=== PATIENT | female | born 1930 | race Caucasian/White ===

== ENCOUNTER 2017-07-06 11:15 | Inpatient (IN) | payer MEDICARE ==
[2017-07-06] MEDS ORDERED: Metoprolol Tartrate 5 MG/5 ML SDV IVPUSH ONE ×3 (11:30→12:36)
--- NOTE | 2017-07-06 11:31 | EDM.PDOC ---
ED HPI GENERAL MEDICAL PROBLEM - General Chief Complaint: Neuro Symptoms/Deficits Stated Complaint: SOB CONFUSED Time Seen by Provider: 07/06/17 11:20 Source of Information: Reports: Patient, EMS, Family, Old Records History Limitations: Reports: No Limitations - History of Present Illness INITIAL COMMENTS - FREE TEXT/NARRATIVE: 86 yo female who lives alone is brought in today via EMS for confusion. Family says she had a RAVI yesterday and was mentating more slowly than usual but was not confused. Today is quite confused. She can remember some names and places, but is disoriented to situation, location, date, etc. EMS noted tachycardia as her only abnormal vital sign(130's). No food or drink yet today. 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 (see below) (none) - Related Data Allergies Allergy/AdvReac Type Severity Reaction Status Date / Time amoxicillin [Amoxicillin] Allergy Nausea and Verified 08/31/16 18:22 Vomiting Home Meds: Home Meds Levothyroxine 75 mcg PO DAILY 12/29/13 [History] Oxybutynin [Oxybutynin ER] 10 mg PO DAILY 12/29/13 [History] Simvastatin 20 mg PO BEDTIME 12/29/13 [History] cycloSPORINE [Restasis] 1 drop EYEBOTH BID 12/29/13 [History] Calcium Carbonate [Calcium] 2 tab PO DAILY 10/20/14 [History] Carboxymethylcellulos/Glycerin [Refresh Optive] 1 drop EYEBOTH TID 10/20/14 [ History] Cholecalciferol (Vitamin D3) [Vitamin D3] 1,000 unit PO DAILY 10/20/14 [History] Clopidogrel [Plavix] 75 mg PO DAILY 10/20/14 [History] Fluticasone/Salmeterol [Advair 250-50] 1 puff INH BID PRN 10/20/14 [History] Lutein 20 mg PO DAILY 10/20/14 [History] Metoprolol Tartrate [Lopressor] 1 tab PO BID 10/20/14 [History] traMADol HCl [Ultram] 50 mg PO BEDTIME 11/25/14 [History] Gabapentin [Neurontin] 900 mg PO BID 05/15/15 [History] Acetaminophen 650 mg PO Q4HR PRN 08/06/16 [History] Furosemide 20 mg PO MOWEFR 08/06/16 [History] Losartan Potassium [Cozaar] 25 mg PO DAILY 08/06/16 [History] Mirtazapine 7.5 mg PO BEDTIME 08/06/16 [History] Diclofenac Sodium 4 gm TOP TID 08/31/16 [History] Past Medical History HEENT History: Reports: Cataract Cardiovascular History: Reports: High Cholesterol, Hypertension, Syncope Respiratory History: Reports: Asthma Other Respiratory History: L sided endarterectomy Gastrointestinal History: Reports: Cholelithiasis, GERD, Hemorrhoids, Irritable Bowel Syndrome Other Gastrointestinal History: GERD is better 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 Psychiatric History: Reports: Depression Endocrine/Metabolic History: Reports: Hypothyroidism Other Endocrine/Metabolic History: takes synthroid Other Oncologic History: lumps removed no CA Dermatologic History: Reports: Cellulitis - Infectious Disease History Infectious Disease History: Reports: Chicken Pox, Influenza, Measles, Pertussis (Whooping Cough), Rubella - Past Surgical History HEENT Surgical History: Reports: Cataract Surgery Cardiovascular Surgical History: Reports: Carotid Endarterectomy, Other (See Below) Female Surgical History: Reports: Breast Biopsy, Hysterectomy Social & Family History - Family History Family Medical History: Noncontributory HEENT: Reports: None Cardiac: Reports: Heart Failure, High Cholesterol, Hypertension, Other (See Below) Other Cardiac Family History: daughter with a prolapsed mitral valve Respiratory: Reports: Asthma, COPD GI: Reports: None OBGYN: Reports: , Recurrent Spontaneous Musculoskeletal: Reports: Arthritis, Back pain, Chronic Neurological: Reports: Parkinson's Psychiatric: Reports: None Endocrine/Metabolic: Reports: Hyperthyroidism Hematologic: Reports: None Oncologic: Reports: Lung, Skin - Tobacco Use Smoking Status *Q: Never Smoker Years of Tobacco use: 20 Used Tobacco, but Quit: Yes Month Tobacco Last Used: can't remember Second Hand Smoke Exposure: No - Caffeine Use Caffeine Use: Reports: None - Alcohol Use Days Per Week of Alcohol Use: 1 Number of Drinks Per Day: 1 Total Drinks Per Week: 1 - Recreational Drug Use Recreational Drug Use: No ED ROS GENERAL - Review of Systems Review Of Systems: Unable To Obtain (due to current confusion. RAVI yesterday with slow mentation per daughter.) ED EXAM, NEURO - Physical Exam Exam: See Below Exam Limited By: No Limitations General Appearance: Alert, WD/WN, No Apparent Distress Eye Exam: Bilateral Eye: EOMI, Normal Inspection, PERRL, Other (No visual field deficits) Ears: Normal External Exam, Normal Canal, Hearing Grossly Normal, Normal TMs Nose: Normal Inspection, Normal Mucosa, No Blood Throat/Mouth: Normal Inspection, Normal Lips, Normal Oropharynx, Normal Voice, No Airway Compromise, Other (weak or no gag reflex) Head Exam: Atraumatic, Normocephalic Neck: Normal Inspection, Supple, Non-Tender Respiratory/Chest: No Respiratory Distress, Lungs Clear, Normal Breath Sounds, No Accessory Muscle Use Cardiovascular: Tachycardia (regular) GI/Abdominal: Normal Bowel Sounds, Soft, Non-Tender, No Distention Neurological: Alert, Normal Mood/Affect, CN II-XII Intact, No Motor/Sensory Deficits, Difficulty Walking (able to walk, but requires more assistance than normal. Has moderate confusion(new).). No: Abnormal Finger to Nose, Abnormal Sensation, Abnormal Light Touch, Abnormal Motor, Abnormal Pin Prick, Babinski DTR: 2+: Bicep (R), Bicep (L), Tricep (R), Tricep (L), Patella (R), Patella (L) , Achilles (R), Achilles (L) Back Exam: Normal Inspection. No: CVA Tenderness (R), CVA Tenderness (L) Extremities: Normal Inspection, Normal Range of Motion, Non-Tender, No Pedal Edema Psychiatric: Normal Affect, Normal Mood Skin Exam: Warm, Dry, Intact, Normal Color, No Rash EKG INTERPRETATION EKG Date: 07/06/17 Time: 11:20 Rhythm: NSR Rate (Beats/Min): 118 [place]: Normal P-Wave: Present QRS: Normal ST-T: Depressed (very slight ST depression in all leads) QT: Normal Comparison: Change From Previous EKG (rate was 70/min on last EKG from . ) Course - Vital Signs Text/Narrative:: Head CT scan-no acute findings IV of NS @ 100 ml/h, Metoprolol 5 mg IV child monitor: sinus tach Case discussed with on-call stroke neurologist at [facility] @ 1230h No speech therapy available. Was able to swallow applesauce without trouble. Plavix 75 mg po, furosemide 20 mg po, metoprolol 25 mg po, losartan [address] Monroe called and message left at 1240h Dr. Sam made aware his patient is here in the ER at 1225h Brain MRI ordered Dr. Monroe reached @ 1320h Last Recorded V/S: Last Vital Signs Temp 37.4 C 07/06/17 11:30 Pulse 96 07/06/17 12:20 Resp 20 07/06/17 13:10 BP 154/82 H 07/06/17 13:10 Pulse Ox 99 07/06/17 13:10 - Orders/Labs/Meds Orders: Active Orders 24 hr Category Date Time Status Cardiac Monitoring [RC] .As Directed Care 07/06/17 11:22 Active Brain wo Cont [MR] Stat Exams 07/06/17 13:22 Ordered Head wo Cont [CT] Stat Exams 07/06/17 11:21 Taken UA W/MICROSCOPIC [URIN] Stat Lab 07/06/17 11:20 Uncollected Sodium Chloride 0.9% [Normal Saline] 1,000 ml Med 07/06/17 11:30 Active IV ASDIRECTED EKG 12 Lead [EK] Routine Ther 07/06/17 11:22 Ordered Medication Orders Sodium Chloride (Normal Saline) 1,000 mls @ 100 mls/hr IV ASDIRECTED YOHANNES Last Admin: 07/06/17 12:02 Dose: 100 mls/hr Labs: Laboratory Tests 07/06/17 07/06/17 07/06/17 Range/Units 11:35 11:35 11:35 WBC 9.1 (4.5-12.0) X10-3/uL RBC 4.42 (3.23-5.20) x10(6)uL Hgb 12.4 (11.5-15.5) g/dL Hct 37.6 (30.0-51.3) % MCV 85.0 (80-96) fL MCH 28.1 (27.7-33.6) pg MCHC 33.0 (32.2-35.4) g/dL RDW 13.7 (11.5-15.5) % Plt Count 169 (125-369) X10(3)uL Sodium 133 L (135-145) mmol/L Potassium 3.8 (3.5-5.3) mmol/L Chloride 98 L D (100-110) mmol/L Carbon Dioxide 23 (23-29) mmol/L BUN 11 (8-23) mg/dL Creatinine 1.0 (0.6-1.3) mg/dL Est Cr Clr Drug Dosing 36.40 mL/min Estimated GFR (MDRD) 52 L (>60) BUN/Creatinine Ratio 11.0 (9-20) Glucose 164 H (80-116) mg/dL Calcium 9.1 (8.6-10.2) mg/dL Troponin I 0.03 (0.02-0.06) NG/ML Meds: Medications Generic Name Dose Route Start Last Admin Trade Name Freq PRN Reason Stop Dose Admin Sodium Chloride 1,000 mls @ 100 mls/hr 07/06/17 11:30 07/06/17 12:02 Normal Saline IV 100 mls/hr ASDIRECTED YOHANNES Administration Discontinued Medications Generic Name Dose Route Start Last Admin Trade Name Freq PRN Reason Stop Dose Admin Clopidogrel Bisulfate 75 mg 07/06/17 13:01 Plavix PO 07/06/17 13:02 ONETIME ONE Furosemide 20 mg 07/06/17 13:00 Lasix PO 07/06/17 13:01 ONETIME ONE Losartan Potassium 25 mg 07/06/17 13:00 Cozaar PO 07/06/17 13:01 NOW STA Metoprolol Tartrate 5 mg 07/06/17 11:30 07/06/17 11:59 Lopressor IVPUSH 07/06/17 11:31 5 mg ONETIME ONE Administration Metoprolol Tartrate 5 mg 07/06/17 12:12 07/06/17 12:20 Lopressor IVPUSH 07/06/17 12:13 5 mg ONETIME ONE Administration Metoprolol Tartrate 5 mg 07/06/17 12:36 Lopressor IVPUSH 07/06/17 12:37 ONETIME ONE Metoprolol Tartrate 25 mg 07/06/17 12:59 Lopressor PO 07/06/17 13:00 ONETIME ONE Departure - Departure Time of Disposition: 13:40 Disposition: Admitted As Inpatient 64 Condition: Fair Clinical Impression: Acute confusion CVA (cerebral vascular accident) Qualifiers: CVA mechanism: unspecified Qualified Code(s): I63.9 - Cerebral infarction, unspecified - Discharge Information - My Orders Last 24 Hours: My Active Orders 07/06/17 11:20 UA W/MICROSCOPIC [URIN] Stat 07/06/17 11:21 Head wo Cont [CT] Stat 07/06/17 11:22 Cardiac Monitoring [RC] .As Directed EKG 12 Lead [EK] Routine 07/06/17 11:30 Sodium Chloride 0.9% [Normal Saline] 1,000 ml IV ASDIRECTED 07/06/17 13:22 Brain wo Cont [MR] Stat - Assessment/Plan Last 24 Hours: My Active Orders 07/06/17 11:20 UA W/MICROSCOPIC [URIN] Stat 07/06/17 11:21 Head wo Cont [CT] Stat 07/06/17 11:22 Cardiac Monitoring [RC] .As Directed EKG 12 Lead [EK] Routine 07/06/17 11:30 Sodium Chloride 0.9% [Normal Saline] 1,000 ml IV ASDIRECTED 07/06/17 13:22 Brain wo Cont [MR] Stat
[2017-07-06] MEDS: Sodium Chloride 0.9% 1,000 ML IV SCH (12:02)
[2017-07-06] MEDS ORDERED: Metoprolol Tartrate 25 MG Tab PO ONE (12:59)
[2017-07-06] MEDS ORDERED: Losartan 25 MG Tab PO STA (13:00)
[2017-07-06] MEDS ORDERED: Furosemide 20 MG Tab PO ONE (13:00)
[2017-07-06] MEDS ORDERED: Clopidogrel 75 MG Tab PO ONE (13:01)
[2017-07-06] MEDS ORDERED: Ondansetron 4 MG Tab.DIS PO PRN (13:30)
[2017-07-06] MEDS ORDERED: Docusate Sodium 100 MG Cap PO PRN (13:30)
[2017-07-06] MEDS ORDERED: Losartan 50 MG Tab PO STA (13:45)
--- NOTE | 2017-07-06 13:55 | CT ---
INDICATION: New more severe confusion. History of 3 strokes. The increased confusion has lasted [address] HEAD WITHOUT CONTRAST: Serial contiguous 2.5 and 5-mm sections were obtained through the brain without contrast, 07/06/2017, and compared with 08/31, again revealing lacunar infarcts in the genu and posterior limb of the right internal capsule and the left basal ganglia inferiorly. There is again no shift of midline structures or ventricular abnormalities. No new abnormal areas of density were identified. There are again noted calcifications in the internal carotid arteries. No bleeding site or hematoma was seen. No finding to suggest an acute intracranial abnormality was identified. Visualized paranasal sinuses and mastoid air cells were well aerated. No cranial abnormality was identified. IMPRESSION: 1. No acute intracranial abnormalities. 2. Lacunar infarct left basal ganglia. 3. Lacunar infarct internal capsule on the right. 4. Calcifications internal carotid arteries. Report was called to Dr. Medel at 1205 hours, 07/06/2017. Total Exam DLP = 949.36 mGy-cm. MTDD
[2017-07-06] MEDS ORDERED: Losartan 50 MG Tab PO ONE (14:00)
[2017-07-06] MEDS: Sodium Chloride 0.9% 10 ML Syringe FLUSH PRN (15:45)
[2017-07-06] MEDS: Acetaminophen 325 MG Tab PO PRN ×2 (16:08→21:06)
[2017-07-06] MEDS ORDERED: Gabapentin 300 MG Cap PO SCH (21:00)
[2017-07-06] MEDS ORDERED: traMADol 50 MG Tab PO SCH (21:00)
[2017-07-06] MEDS: Metoprolol Tartrate 25 MG Tab PO SCH (21:05)
[2017-07-06] MEDS: Melatonin 3 MG Tab PO SCH (21:05)
[2017-07-07] MEDS: Sodium Chloride 0.9% 1,000 ML IV SCH (00:28)
[2017-07-07] MEDS ORDERED: Levothyroxine 75 MCG Tab PO SCH (07:30)
--- NOTE | 2017-07-07 09:26 | PN ---
DATE SEEN: 07/07/2017 SUBJECTIVE: Radha Lee is an 86-year-old female admitted with acute confusional state. It was rather abrupt in onset, rather markedly impaired and under conflict. She appears better this morning and when her daughter returns, we will discuss memory issues. She knows where she is. She knows who our president is with some reluctance. She is eating and consuming well, voiding with good success. LABORATORY DATA: Laboratory studies were outstanding. TSH has returned to 8.5. She is on 75 mcg of levothyroxine. OBJECTIVE: NECK: Benign. Thyroid small. CHEST: Clear. HEART: Regular. ABDOMEN: Benign. ASSESSMENT: Acute confusional state, acute delirium, appears to be resolving. PLAN: We will avoid the tramadol, and Tylenol will be provided for pain. We will increase her levothyroxine from 75 to 88 mcg, complementary care and well being. We will see how the day goes. /[id number] HAKEEM/TAD
[2017-07-07] MEDS: Metoprolol Tartrate 25 MG Tab PO SCH ×2 (09:32→20:41)
[2017-07-07] MEDS: Levothyroxine 88 MCG Tab PO SCH (09:33)
[2017-07-07] MEDS: Gabapentin 600 MG Tab PO SCH ×2 (09:33→20:42)
[2017-07-07] MEDS: Acetaminophen 650 MG Tab.ER PO SCH ×2 (09:33→20:43)
[2017-07-07] MEDS: Clopidogrel 75 MG Tab PO SCH (09:33)
[2017-07-07] MEDS ORDERED: Formoterol/Mometasone 200-5 MCG 8.8 GM Inhaler IH PRN (10:00)
[2017-07-07] MEDS: Sodium Chloride 0.9% 10 ML Syringe FLUSH PRN (10:13)
--- NOTE | 2017-07-07 10:23 | HP ---
ADMISSION DATE: 07/06/2017 HISTORY OF PRESENT ILLNESS: Essie Lee is an 86-year-old female, [place] resident was transferred by family to [facility] in the morning of 07/06/2017. She has been in good health, living independently in her home, and without complaint or concern. She had an uneventful weekend. This past Thursday07/04/2017, her daughter had called requesting a trip to the grocery store, to get some groceries. When she got to the patient's home, the patient Ms. Fountain had decided to go with friends to [place] for morning lunch date. Daughter agreed, she spoke to her later today. No complaints or concerns, and declined grocery shopping that particularly had been made. As always the case on Thursday07/05/2017, she went to her daughter's home to pear picker for rastafari, she was just for rastafari, but declined to go to rastafari due to increasing back pain. This was Thursday the . She called her that evening, spoke to at length. She seemed a little bit groggy and speech was a little bit garbled, but there were no other complicating issues. They called a couple of times the morning of 07/06/2017, she did not answer phone, she went home, she was stressed lying in bed, was acutely confused. She was unaware of her environment, circumstances, unaware of her daughter, and the circumstances of the day. She was brought to [place] ER, evaluation included CT of the brain which revealed small lacunar infarcts, no obvious metabolic issues, MRI at the request of the Neurology staff at [facility], recommended MRI, which returned normal and observation. This morning seen for admission at this particular time. On Thursday07/05/2017, she had commented that her back was increasingly painful, and likely was taking some of her tramadol. MEDICATIONS: Present daily medications which include: 1. Calcium 2 tabs daily nutrition. 2. Diclofenac t.i.d. topically, joint pain. 3. Plavix 75 mg 1 p.o. daily, CVA prevention. 4. Gabapentin 900 mg b.i.d. neuropathic pain. 5. Levothyroxine 75 mcg 1 p.o. daily, hypothyroidism. 6. Melatonin 3 mg at bedtime, sleep enhancement. 7. Metoprolol 25 mg b.i.d. blood pressure. ALLERGIES: Allergic to amoxicillin with nausea, vomiting. PAST MEDICAL HISTORY: Upon questioning, she was unable to ascertain all the circumstances of her past history. With her daughter's assistance, she has had multiple surgical procedures including initial hysterectomy followed by bilateral salpingo-oophorectomy, cholecystectomy, appendectomy, 2 lumbar back surgeries, carpal tunnel surgery x2, and loss of the toe in the left foot. Chronic illnesses include hypothyroidism, previous TIA, and hypertension. No other operative procedures, hospitalizations, unusual childhood diseases, major injuries, or fractures. She also has some RSD of the left foot for which she is on gabapentin, previous foot fracture. SOCIAL HISTORY: She lives alone independently, for 14 years. 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 Smoked remotely in the past, no alcohol consumption. No illicit drug use. Three children, lost one daughter. REVIEW OF SYSTEMS: Review of systems difficult to ascertain at the time of this investigation, uncertain to answer. Daughter states that this is profoundly different issue. Lives independently, speech is appropriate, walks without a walker, and no difficulty with voiding or stooling, no known blood in stool or urine, no new skin rashes. PHYSICAL EXAMINATION: VITAL SIGNS: 178/82, 114 mean blood pressure, pulse of 78, 36.7 degrees Fahrenheit, 97% of O2 saturation on room air. GENERAL: The patient was a little distant, speech was limited. Conversation was a bit gated. HEENT: Funduscopic benign. Bright TMs. Decreased clear nasal discharge. Midline septum. Mouth and oropharynx clear. NECK: Benign. Thyroid small. CHEST: Clear in all lung wong. No adventitious sounds. HEART: Regular rate without ectopy or significant murmur. BREASTS: Parous, pendulous without masses. ABDOMEN: Benign, well-healed surgical scar in right upper quadrant, right lower quadrant, and lower abdomen. No hepatosplenomegaly. No palpable masses. GENITOURINARY and RECTAL: Deferred. EXTREMITIES: Well perfused. Pulses were palpable, but decreased. Sensation was normal. Toes downgoing plantar flexion, gait and station not tested. LABORATORY STUDIES: Hemoglobin 12.4, hematocrit 37.7%, white count 9100, sodium 133, potassium 3.8, BUN 11, creatinine 0.1, random glucose 164, normal troponin. Urinalysis unremarkable, urine drug screen negative. ASSESSMENT: Acute confusional state, recent in nature, 24 hours duration, origin under investigation certainly possibility of relationship to tramadol over use. The patient is neurologically intact and shows no other focal findings. TSH will be evaluated for stability. In the mean time, IV fluids, good nutrition, clinical well being, observation risk for fall or injury. /[id number] HAKEEM/TAD
[2017-07-07] MEDS: Losartan 25 MG Tab PO SCH (12:55)
[2017-07-07] MEDS: Melatonin 3 MG Tab PO SCH (20:42)
[2017-07-07] MEDS ORDERED: Simvastatin 20 MG Tab PO SCH (21:00)
[2017-07-07] MEDS ORDERED: Mirtazapine 15 MG Tab PO SCH (21:00)
[2017-07-08] MEDS: Levothyroxine 88 MCG Tab PO SCH (06:11)
[2017-07-08] MEDS: Clopidogrel 75 MG Tab PO SCH (08:24)
[2017-07-08] MEDS: Acetaminophen 650 MG Tab.ER PO SCH (08:24)
[2017-07-08] MEDS: Gabapentin 600 MG Tab PO SCH (08:25)
[2017-07-08] MEDS: Metoprolol Tartrate 25 MG Tab PO SCH (08:26)
[2017-07-08] MEDS: Losartan 25 MG Tab PO SCH (08:27)
[2017-07-08 08:28] VITALS: BP 162/61
--- NOTE | 2017-07-08 11:01 | DISCH ---
DISCHARGE DATE: 07/08/2017 HOSPITAL COURSE: Radha Lee is an 86-year-old female, admitted with an acute confusional state. Please see specific circumstances and length of time on admission history and physical. Upon admission, diagnostic studies were performed. CT revealed small lacunar infarcts none new, MRI substantiated no acute findings. Laboratory studies were satisfactory, except for an elevated TSH at 8.5. It should be noted that tramadol was on board at home appropriately for complicated back pain, previous back surgery, and sciatica pain. On the day of admission, a number were taken, uncertain. Adjustments upward from 75 to 88 mcg was performed. The patient improved, mentation improved, confusion improved, and at the time of discharge was nearly back to baseline. Family was comfortable with discharge. The tramadol was discontinued. We started arthritis strength Tylenol 650 two p.o. b.i.d. 2600 mg per day, complementary care and well being. We will have a followup visit with Dr. Sam in the next two weeks' time. In the meantime, Tylenol for pain, discontinue the tramadol, a new script for 88 mcg of levothyroxine was forwarded to [facility]. Otherwise well. DISCHARGE MEDICATIONS: Please see med recon list. SURGICAL PROCEDURES: None. CONSULTATIONS: None. /[id number] HAKEEM/TAD
== END 2017-07-08 16:40 | disposition home or self-care (01) | DRG 948 ==
LOC: FB.ED 11:15 → FB.MS 13:40
PROVIDERS: ADMIT Family Medicine; ATTEND Family Medicine
DX: I63.9 Cerebral infarction, unspecified (principal); R41.0 Disorientation, unspecified; G90.522 Complex regional pain syndrome I of left lower limb; M54.9 Dorsalgia, unspecified; Z79.891 Long term (current) use of opiate analgesic; M54.30 Sciatica, unspecified side; E03.9 Hypothyroidism, unspecified; Z86.73 Personal history of transient ischemic attack (TIA), and cerebral infarction without residual deficits; I10 Essential (primary) hypertension
CPT/HCPCS: 36415; 70450; 70551; 80048; 84443; 84484; 85027; 93005; 96365; 96375; 99285 ×2; J7040; 80305; 81001; A9270-GY; J3490; J7050

== ENCOUNTER 2017-09-16 15:42 | Inpatient (IN) | payer MEDICARE, OTHER ==
--- NOTE | 2017-09-16 16:00 | EDM.PDOC ---
ED HPI GENERAL MEDICAL PROBLEM - General Stated Complaint: FEVER Time Seen by Provider: 09/16/17 15:45 Source of Information: Reports: Patient, Family History Limitations: Reports: Altered Mental Status, Physical Impairment - History of Present Illness INITIAL COMMENTS - FREE TEXT/NARRATIVE: 87 years old w f with h/o CVA. came to the ed due to gen weakness, confusion. She has coffee every thursday with her friends. Today, she did not show up. Her friends called her and she did not answer her phone. Her daughter was called and found her weak and confused at home. Pt was see last time being "normal" yesterday. Pt come to the ed by wheelchair. Pt was not able to give a HPI, says donny (?) to any questions, denies pain, trauma and is not able ambulate because of weakness. Temp was 99.9 on arrival. BP was 154/63 pulse was 124 BPM. Temp 36.4 Not oriented to time, place and situation. Onset: Gradual Onset Date: 09/16/17 Onset Time: 14:00 Duration: Hour(s): Location: Reports: Generalized denies Pain Score (Numeric/FACES): 0 - Related Data Allergies Allergy/AdvReac Type Severity Reaction Status Date / Time amoxicillin [Amoxicillin] Allergy Nausea and Verified 09/16/17 19:54 Vomiting Home Meds: Home Meds Calcium Carbonate [Calcium] 2 tab PO DAILY 10/20/14 [History] Cholecalciferol (Vitamin D3) [Vitamin D3] 1,000 units PO DAILY 07/07/17 [History ] Fluticasone/Salmeterol [Advair 250-50 Diskus] 1 each IH BID PRN 07/07/17 [ History] Lutein 20 mg PO DAILY 07/07/17 [History] Simvastatin [Zocor] 20 mg PO BEDTIME 07/07/17 [History] Acetaminophen [Tylenol Arthritis Pain] 1,300 mg PO BID tab.er 07/08/17 [Rx] Clopidogrel [Plavix] 75 mg PO DAILY tablet 07/08/17 [Rx] Gabapentin [Neurontin] 600 mg PO BID tablet 07/08/17 [Rx] Levothyroxine [Synthroid] 88 mcg PO 0600 #90 tablet 07/08/17 [Rx] Losartan [Cozaar] 25 mg PO DAILY tablet 07/08/17 [Rx] Melatonin 3 mg PO BEDTIME tablet 07/08/17 [Rx] Metoprolol Tartrate [Lopressor] 25 mg PO BID tablet 07/08/17 [Rx] Mirtazapine [Remeron] 7.5 mg PO BEDTIME tablet 07/08/17 [Rx] Acetaminophen [Tylenol Arthritis] 1,300 mg PO ONETIME PRN 09/17/17 [History] Bifidobacterium Infantis [Align] 4 mg PO DAILY 09/17/17 [History] Past Medical History HEENT History: Reports: Cataract Cardiovascular History: Reports: High Cholesterol, Hypertension, Syncope Respiratory History: Reports: Asthma Other Respiratory History: L sided endarterectomy Gastrointestinal History: Reports: Cholelithiasis, GERD, Hemorrhoids, Irritable Bowel Syndrome Other Gastrointestinal History: GERD is better 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 Psychiatric History: Reports: Depression Endocrine/Metabolic History: Reports: Hypothyroidism Other Endocrine/Metabolic History: takes synthroid Other Oncologic History: lumps removed no CA Dermatologic History: Reports: Cellulitis - Infectious Disease History Infectious Disease History: Reports: Chicken Pox, Influenza, Measles, Pertussis (Whooping Cough), Rubella - Past Surgical History HEENT Surgical History: Reports: Cataract Surgery Cardiovascular Surgical History: Reports: Carotid Endarterectomy, Other (See Below) Respiratory Surgical History: Reports: None GI Surgical History: Reports: None Female Surgical History: Reports: Breast Biopsy, Hysterectomy Social & Family History - Family History Family Medical History: Noncontributory HEENT: Reports: None Cardiac: Reports: Heart Failure, High Cholesterol, Hypertension, Other (See Below) Other Cardiac Family History: daughter with a prolapsed mitral valve Respiratory: Reports: Asthma, COPD GI: Reports: None OBGYN: Reports: , Recurrent Spontaneous Musculoskeletal: Reports: Arthritis, Back pain, Chronic Neurological: Reports: Parkinson's Psychiatric: Reports: None Endocrine/Metabolic: Reports: Hyperthyroidism Hematologic: Reports: None Oncologic: Reports: Lung, Skin - Tobacco Use Smoking Status *Q: Former Smoker Years of Tobacco use: 20 Used Tobacco, but Quit: Yes Month Tobacco Last Used: June Second Hand Smoke Exposure: No - Caffeine Use Caffeine Use: Reports: None - Alcohol Use Days Per Week of Alcohol Use: 1 Number of Drinks Per Day: 1 Total Drinks Per Week: 1 - Recreational Drug Use Recreational Drug Use: No ED ROS GENERAL - Review of Systems Review Of Systems: Unable To Obtain ED EXAM, NEURO - Physical Exam Exam: See Below Exam Limited By: Altered Mental Status General Appearance: Alert, Lethargic, Mild Distress Eye Exam: Bilateral Eye: Normal Inspection Ears: Normal External Exam Nose: Normal Inspection Throat/Mouth: Other (dry mucosal membrane) Head Exam: Atraumatic, Normocephalic Neck: Normal Inspection, Supple, Non-Tender, Full Range of Motion Respiratory/Chest: No Respiratory Distress, Decreased Breath Sounds (left uppe rlobe of lung) Cardiovascular: Tachycardia GI/Abdominal: Normal Bowel Sounds, Soft, Non-Tender, No Organomegaly (Female) Exam: Deferred Rectal (Female) Exam: Deferred Neurological: Alert, Abnormal Gait, Difficulty Walking Back Exam: Normal Inspection Extremities: Normal Inspection, Normal Range of Motion Psychiatric: Depressed Mood Skin Exam: Warm, Dry, No Rash EKG INTERPRETATION EKG Date: 09/16/17 Time: 16:25 Rhythm: NSR Rate (Beats/Min): 114 [place]: Normal P-Wave: Present QRS: Normal ST-T: Other (peaked t waves) QT: Prolonged (501) Comparison: NA - No Prior EKG Course - Vital Signs Text/Narrative:: 87 years old w f with h/o CVA. came to the ed due to gen weakness, confusion. She has coffee every thursday with her friends. Today, she did not show up. Her friends called her and she did not answer her phone. Her daughter was called and found her weak and confused at home. Pt was see last time being "normal" yesterday. Pt come to the ed by wheelchair. Pt was not able to give a HPI, says donny (?) to any questions, denies pain, trauma and is not able ambulate because of weakness. Temp was 99.9 on arrival. BP was 154/63 pulse was 124 BPM. Temp 36.4 Not oriented to time, place and situation. No N/V/D PE: disoriented to time place and situation, unable to ambulate, weak, unable to void at this time. Labs; WBC 15 K, with Lactic acid 4.6 Neutr. 83% Na 133 K 3.4 BNP 505 Glc 184 UA pending, pt is not able to void Imaging: CINDY pneumonia as per RAD. CT head NAD comp to prev Head CTs Impression: Mental status changes, CINDY pneumonia, dehydration. Tx: NS, Levoqione and Vanco Reexam: Anesthesia need to be called due to poor IV access, improved, pt still not able to void, Abx needed to initiated!Daughter requested full code, Pt is allergic to Amox! Levoquin was choosen. Plan: Admit to inpatient m/s with tele due to prolonged Qtc. Last Recorded V/S: Last Vital Signs Temp 37.2 C 09/17/17 16:00 Pulse 73 09/17/17 16:00 Resp 20 09/17/17 16:00 BP 156/72 H 09/17/17 16:00 Pulse Ox 96 09/17/17 16:00 - Orders/Labs/Meds Orders: Active Orders 24 hr Category Date Time Status Patient Status [ADT] Routine ADT 09/16/17 18:49 Active Oxygen Therapy [RC] PRN Care 09/16/17 18:49 Active Up With Assistance [RC] ASDIRECTED Care 09/16/17 18:46 Active Vital Signs [RC] 00,04,08,12,16,20 Care 09/16/17 18:49 Active Ondansetron [Zofran] Med 09/16/17 18:46 Active 4 mg IV Q4H PRN Sodium Chloride 0.9% [Saline Flush] Med 09/16/17 18:46 Active 10 ml FLUSH ASDIRECTED PRN Peripheral IV Insertion Adult [OM.PC] Routine Oth 09/16/17 18:46 Ordered Resuscitation Status Routine Resus Stat 09/16/17 18:46 Ordered Medication Orders Acetaminophen (Tylenol Arthritis Pain) 1,300 mg PO BID YOHANNES Last Admin: 09/17/17 09:34 Dose: 1,300 mg Acetaminophen (Tylenol Arthritis Pain) 1,300 mg PO DAILY PRN PRN Reason: Pain Last Admin: 09/17/17 14:56 Dose: 1,300 mg Calcium Carbonate (Calcium Carbonate/Vitamin D 1250 Mg-200 Unit) 2 tab PO DAILY [facility] Last Admin: 09/17/17 09:32 Dose: 2 tab Cholecalciferol (Vitamin D3) 1,000 units PO DAILY [facility] Last Admin: 09/17/17 09:34 Dose: 1,000 units Clopidogrel Bisulfate (Plavix) 75 mg PO DAILY [facility] Last Admin: 09/17/17 09:34 Dose: 75 mg Gabapentin (Neurontin) 600 mg PO BID [facility] Last Admin: 09/17/17 09:34 Dose: 600 mg Levofloxacin/Dextrose 750 mg/ (Premix) 150 mls @ 100 mls/hr IV Q48H [facility] Potassium Chloride/Sodium Chloride (Normal Saline With 20 Meq Kcl) 1,000 mls @ 100 mls/hr IV Q10H [facility] Last Admin: 09/17/17 14:51 Dose: 100 mls/hr Vancomycin HCl 1,000 mg/ (Sodium Chloride) 250 mls @ 250 mls/hr IV Q24H [facility] Levothyroxine Sodium (Synthroid) 88 mcg PO 0600 [facility] Last Admin: 09/17/17 09:34 Dose: 88 mcg Losartan Potassium (Cozaar) 25 mg PO DAILY [facility] Last Admin: 09/17/17 09:33 Dose: 25 mg Lutein (Lutein) 20 mg PO DAILY [facility] Last Admin: 09/17/17 09:33 Dose: 20 mg Melatonin (Melatonin) 3 mg PO BEDTIME [facility] Metoprolol Tartrate (Lopressor) 25 mg PO BID [facility] Last Admin: 09/17/17 09:33 Dose: 25 mg Mirtazapine (Remeron) 7.5 mg PO BEDTIME [facility] Mometasone Furoate/Formoterol Fumar (Dulera 200-5 Mcg) 2 puff IH BID PRN PRN Reason: BREATHING ISSUES Ondansetron HCl (Zofran) 4 mg IV Q4H PRN PRN Reason: Nausea/Vomiting Saccharomyces Boulardii (Florastor) 250 mg PO BID [facility] Last Admin: 09/17/17 14:15 Dose: 250 mg Simvastatin (Zocor) 20 mg PO BEDTIME [facility] Sodium Chloride (Saline Flush) 10 ml FLUSH ASDIRECTED PRN PRN Reason: Keep Vein Open Vancomycin HCl (Pharmacy To Dose - Vancomycin) 1 dose .XX ASDIRECTED [facility] Labs: Laboratory Tests 09/16/17 09/16/17 09/16/17 Range/Units 15:55 15:55 15:55 WBC 15.9 H (4.5-12.0) X10-3/uL RBC 4.44 (3.23-5.20) x10(6)uL Hgb 12.8 (11.5-15.5) g/dL Hct 38.8 (30.0-51.3) % MCV 87.4 (80-96) fL MCH 28.8 (27.7-33.6) pg MCHC 32.9 (32.2-35.4) g/dL RDW 14.3 (11.5-15.5) % Plt Count 198 (125-369) X10(3)uL MPV 7.8 (7.4-10.4) fL Add Manual Diff Yes Neutrophils % (Manual) 83 H (46-82) % Band Neutrophils % 5 (0-6) % Lymphocytes % (Manual) 5 L (13-37) % Monocytes % (Manual) 7 (4-12) % Sodium 133 L (135-145) mmol/L Potassium 3.4 L (3.5-5.3) mmol/L Chloride 100 (100-110) mmol/L Carbon Dioxide 17 L (23-29) mmol/L BUN 15 (8-23) mg/dL Creatinine 1.4 H (0.6-1.3) mg/dL Est Cr Clr Drug Dosing 25.50 mL/min Estimated GFR (MDRD) 35 L (>60) BUN/Creatinine Ratio 10.7 (9-20) Glucose 184 H (80-116) mg/dL Lactic Acid (0.5-2.2) mmol/L Calcium 9.1 (8.6-10.2) mg/dL Creatine Kinase (60-160) IU/L B-Natriuretic Peptide 505 H (0-100) pg/mL 09/16/17 09/16/17 Range/Units 15:55 17:05 WBC (4.5-12.0) X10-3/uL RBC (3.23-5.20) x10(6)uL Hgb (11.5-15.5) g/dL Hct (30.0-51.3) % MCV (80-96) fL MCH (27.7-33.6) pg MCHC (32.2-35.4) g/dL RDW (11.5-15.5) % Plt Count (125-369) X10(3)uL MPV (7.4-10.4) fL Add Manual Diff Neutrophils % (Manual) (46-82) % Band Neutrophils % (0-6) % Lymphocytes % (Manual) (13-37) % Monocytes % (Manual) (4-12) % Sodium (135-145) mmol/L Potassium (3.5-5.3) mmol/L Chloride (100-110) mmol/L Carbon Dioxide (23-29) mmol/L BUN (8-23) mg/dL Creatinine (0.6-1.3) mg/dL Est Cr Clr Drug Dosing mL/min Estimated GFR (MDRD) (>60) BUN/Creatinine Ratio (9-20) Glucose (80-116) mg/dL Lactic Acid 4.6 H (0.5-2.2) mmol/L Calcium (8.6-10.2) mg/dL Creatine Kinase 142 (60-160) IU/L B-Natriuretic Peptide (0-100) pg/mL Meds: Medications Generic Name Dose Route Start Last Admin Trade Name Freq PRN Reason Stop Dose Admin Acetaminophen 1,300 mg 09/17/17 09:00 09/17/17 09:34 Tylenol Arthritis Pain PO 1,300 mg BID YOHANNES Administration Acetaminophen 1,300 mg 09/17/17 14:00 09/17/17 14:56 Tylenol Arthritis Pain PO 1,300 mg DAILY PRN Administration Pain Calcium Carbonate 2 tab 09/17/17 09:00 09/17/17 09:32 Calcium Carbonate/Vitamin D 1250 Mg-200 Unit PO 2 tab DAILY YOHANNES Administration Cholecalciferol 1,000 units 09/17/17 09:00 09/17/17 09:34 Vitamin D3 PO 1,000 units DAILY YOHANNES Administration Clopidogrel Bisulfate 75 mg 09/17/17 09:00 09/17/17 09:34 Plavix PO 75 mg DAILY YOHANNES Administration Gabapentin 600 mg 09/17/17 09:00 09/17/17 09:34 Neurontin PO 600 mg BID YOHANNES Administration Levofloxacin/Dextrose 750 mg/ 150 mls @ 100 mls/hr 09/18/17 06:00 Premix IV Q48H [facility] Potassium Chloride/Sodium Chloride 1,000 mls @ 100 mls/hr 09/17/17 15:00 14:51 Normal Saline With 20 Meq Kcl IV 100 mls/hr Q10H YOHANNES Administration Vancomycin HCl 1,000 mg/ 250 mls @ 250 mls/hr 09/17/17 20:00 Sodium Chloride IV Q24H YOHANNES Levothyroxine Sodium 88 mcg 09/17/17 09:00 09/17/17 09:34 Synthroid PO 88 mcg 0600 YOHANNES Administration Losartan Potassium 25 mg 09/17/17 09:00 09/17/17 09:33 Cozaar PO 25 mg DAILY YOHANNES Administration Lutein 20 mg 09/17/17 09:00 09/17/17 09:33 Lutein PO 20 mg DAILY YOHANNES Administration Melatonin 3 mg 09/17/17 21:00 Melatonin PO BEDTIME YOHANNES Metoprolol Tartrate 25 mg 09/17/17 09:00 09/17/17 09:33 Lopressor PO 25 mg BID YOHANNES Administration Mirtazapine 7.5 mg 09/17/17 21:00 Remeron PO BEDTIME [facility] Mometasone Furoate/Formoterol Fumar 2 puff 09/17/17 12:00 Dulera 200-5 Mcg IH BID PRN BREATHING ISSUES Ondansetron HCl 4 mg 09/16/17 18:46 Zofran IV Q4H PRN Nausea/Vomiting Saccharomyces Boulardii 250 mg 09/17/17 13:15 09/17/17 14:15 Florastor PO 250 mg BID YOHANNES Administration Simvastatin 20 mg 09/17/17 21:00 Zocor PO BEDTIME YOHANNES Sodium Chloride 10 ml 09/16/17 18:46 Saline Flush FLUSH ASDIRECTED PRN Keep Vein Open Vancomycin HCl 1 dose 09/17/17 10:00 Pharmacy To Dose - Vancomycin .XX ASDIRECTED YOHANNES Discontinued Medications Generic Name Dose Route Start Last Admin Trade Name Freq PRN Reason Stop Dose Admin Sodium Chloride 1,000 mls @ 125 mls/hr 09/16/17 16:30 09/16/17 18:30 Normal Saline IV 125 mls/hr ASDIRECTED YOHANNES Administration Levofloxacin/Dextrose 500 mg/ 100 mls @ 100 mls/hr 09/16/17 17:45 09/16/17 18 :30 Premix IV 100 mls/hr Q24H YOHANNES Administration Lactated Ringer's 1,000 mls @ 100 mls/hr 09/16/17 19:00 09/17/17 07:03 Ringers, Lactated IV 125 mls/hr ASDIRECTED YOHANNES Administration Vancomycin HCl 1,000 mg/ 250 mls @ 167 mls/hr 09/16/17 19:00 09/16/17 21:55 Sodium Chloride IV Not Given Q24H YOHANNES Vancomycin HCl 1 gm/ Sodium 250 mls @ 167 mls/hr 09/16/17 20:00 09/16/17 21: 08 Chloride IV 167 mls/hr Q24H YOHANNES Administration Ketorolac Tromethamine 15 mg 09/16/17 20:04 09/16/17 20:39 Toradol IVPUSH 09/16/17 20:05 15 mg ONETIME ONE Administration Mometasone Furoate/Formoterol Fumar 2 puff 09/17/17 08:45 Dulera 200-5 Mcg IH BID PRN BREATHING ISSUES Vancomycin HCl Confirm 09/16/17 20:58 09/16/17 21:08 Vancomycin Administered 09/16/17 20:59 Not Given Dose 1,000 mg .ROUTE .STK-MED ONE Departure - Departure Time of Disposition: 19:24 Disposition: Admitted As Inpatient 64 Condition: Fair Clinical Impression: Pneumonia Qualifiers: Laterality: left Lung location: upper lobe of lung - Discharge Information - My Orders Last 24 Hours: My Active Orders 09/16/17 18:46 Up With Assistance [RC] ASDIRECTED Ondansetron [Zofran] 4 mg IV Q4H PRN Sodium Chloride 0.9% [Saline Flush] 10 ml FLUSH ASDIRECTED PRN Peripheral IV Insertion Adult [OM.PC] Routine Resuscitation Status Routine 09/16/17 18:49 Patient Status [ADT] Routine Oxygen Therapy [RC] PRN Vital Signs [RC] 00,04,08,12,16,20 - Assessment/Plan Last 24 Hours: My Active Orders 09/16/17 18:46 Up With Assistance [RC] ASDIRECTED Ondansetron [Zofran] 4 mg IV Q4H PRN Sodium Chloride 0.9% [Saline Flush] 10 ml FLUSH ASDIRECTED PRN Peripheral IV Insertion Adult [OM.PC] Routine Resuscitation Status Routine 09/16/17 18:49 Patient Status [ADT] Routine Oxygen Therapy [RC] PRN Vital Signs [RC] 00,04,08,12,16,20
[2017-09-16] MEDS ORDERED: Sodium Chloride 0.9% 1,000 ML IV SCH (16:30)
[2017-09-16] MEDS ORDERED: Levofloxacin/Dextrose 5%-Water 500 MG in Premix Bag 1 BAG IV SCH (17:45)
[2017-09-16] MEDS ORDERED: Sodium Chloride 0.9% 10 ML Syringe FLUSH PRN (18:46)
[2017-09-16] MEDS ORDERED: Ondansetron 4 MG/2 ML SDV IV PRN (18:46)
[2017-09-16] MEDS ORDERED: Ketorolac 15 MG/ML SDV IVPUSH ONE (20:04)
[2017-09-16] MEDS ORDERED: Vancomycin 1,000 MG SDV ONE (20:58)
[2017-09-16] MEDS: Lactated Ringers 1,000 ML IV SCH (22:23)
[2017-09-17] MEDS: Lactated Ringers 1,000 ML IV SCH (07:03)
--- NOTE | 2017-09-17 08:22 | PCM.HP ---
H&P History of Present Illness - General Date of Service: 09/17/17 Admit Problem/Dx: Admission Diagnosis/Problem Admission Diagnosis/Problem Pneumonia Source of Information: Patient, EMS Notes Reviewed - History of Present Illness Initial Comments - Free Text/Narative: This is an 87-year-old female patient that was supposed to go to a card game yesterday. She didn't show up so her friends called. She did not answer the phone sort are to 1 over and found that she was confused and weak. She states she heard the phone ring but did not answer. Then she states her daughter came over anterior to the hospital. And thus lasting she remembers. She states she's had vomiting 1 yesterday and had diarrhea 2 days before that. She is now coughing but wasn't yesterday. She is diagnosed with pneumonia in the ER. She states she is hot and cold and achy. She has nasal congestion but no sore throat. She has not had a flu shot as of yet. - Related Data Allergies/Adverse Reactions: Allergies Allergy/AdvReac Type Severity Reaction Status Date / Time amoxicillin [Amoxicillin] Allergy Nausea and Verified 09/16/17 19:54 Vomiting Home Medications: Home Meds Calcium Carbonate [Calcium] 2 tab PO DAILY 10/20/14 [History] Cholecalciferol (Vitamin D3) [Vitamin D3] 1,000 units PO DAILY 07/07/17 [History ] Fluticasone/Salmeterol [Advair 250-50 Diskus] 1 each IH BID PRN 07/07/17 [ History] Lutein 20 mg PO DAILY 07/07/17 [History] Simvastatin [Zocor] 20 mg PO BEDTIME 07/07/17 [History] Acetaminophen [Tylenol Arthritis Pain] 1,300 mg PO BID tab.er 07/08/17 [Rx] Clopidogrel [Plavix] 75 mg PO DAILY tablet 07/08/17 [Rx] Gabapentin [Neurontin] 600 mg PO BID tablet 07/08/17 [Rx] Levothyroxine [Synthroid] 88 mcg PO 0600 #90 tablet 07/08/17 [Rx] Losartan [Cozaar] 25 mg PO DAILY tablet 07/08/17 [Rx] Melatonin 3 mg PO BEDTIME tablet 07/08/17 [Rx] Metoprolol Tartrate [Lopressor] 25 mg PO BID tablet 07/08/17 [Rx] Mirtazapine [Remeron] 7.5 mg PO BEDTIME tablet 07/08/17 [Rx] Past Medical History HEENT History: Reports: Cataract Cardiovascular History: Reports: High Cholesterol, Hypertension, Syncope Respiratory History: Reports: Asthma Other Respiratory History: L sided endarterectomy Gastrointestinal History: Reports: Cholelithiasis, GERD, Hemorrhoids, Irritable Bowel Syndrome Other Gastrointestinal History: GERD is better Genitourinary History: Reports: Urinary Incontinence 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 Psychiatric History: Reports: Depression Endocrine/Metabolic History: Reports: Hypothyroidism Other Endocrine/Metabolic History: takes synthroid Hematologic History: Reports: Other (See Below) Other Hematologic History: on plavix for cholesterol Other Oncologic History: lumps removed no CA Dermatologic History: Reports: Cellulitis - Infectious Disease History Infectious Disease History: Reports: Chicken Pox, Influenza, Measles, Pertussis (Whooping Cough), Rubella - Past Surgical History HEENT Surgical History: Reports: Cataract Surgery Cardiovascular Surgical History: Reports: Carotid Endarterectomy Respiratory Surgical History: Reports: None GI Surgical History: Reports: Appendectomy, Cholecystectomy Female Surgical History: Reports: Breast Biopsy, Hysterectomy Social & Family History - Family History Family Medical History: Noncontributory HEENT: Reports: None Cardiac: Reports: Heart Failure, High Cholesterol, Hypertension, Other (See Below) Other Cardiac Family History: daughter with a prolapsed mitral valve Respiratory: Reports: Asthma, COPD GI: Reports: None OBGYN: Reports: , Recurrent Spontaneous Musculoskeletal: Reports: Arthritis, Back pain, Chronic Neurological: Reports: Parkinson's Psychiatric: Reports: None Endocrine/Metabolic: Reports: Hyperthyroidism Hematologic: Reports: None Oncologic: Reports: Lung, Skin - Tobacco Use Smoking Status *Q: Former Smoker Years of Tobacco use: 20 Used Tobacco, but Quit: Yes Month Tobacco Last Used: 44 years ago Tobacco Use Comment: LUIS, daughter knows she quit 44 years ago Second Hand Smoke Exposure: No - Caffeine Use Caffeine Use: Reports: None Other Caffeine Use: mostly drinks decaf coffee - Alcohol Use Days Per Week of Alcohol Use: 1 Number of Drinks Per Day: 1 Total Drinks Per Week: 1 - Recreational Drug Use Recreational Drug Use: No H&P Review of Systems - Review of Systems: Review Of Systems: See Below General: Reports: Fever, Chills, Weakness HEENT: Reports: Sinus Congestion Pulmonary: Reports: Cough. Denies: Shortness of Breath Cardiovascular: Reports: No Symptoms Gastrointestinal: Reports: Diarrhea, Vomiting. Denies: Bloody Stool Genitourinary: Reports: No Symptoms Musculoskeletal: Reports: No Symptoms Skin: Reports: No Symptoms Psychiatric: Reports: No Symptoms Neurological: Reports: No Symptoms Hematologic/Lymphatic: Reports: No Symptoms Immunologic: Reports: No Symptoms Exam - Exam Exam: See Below - Vital Signs Vital Signs: Last Vital Signs Temp 98 F 09/17/17 00:45 Pulse 91 09/17/17 05:45 Resp 18 09/17/17 04:00 BP 142/62 H 09/17/17 05:45 Pulse Ox 97 09/17/17 00:45 Weight: 167 lb - Exam General: Alert, Oriented, Cooperative HEENT: Hearing Intact, Mucosa Moist & [place], Posterior Pharynx Clear, TMs Clear Neck: Supple, Trachea Midline, Full Range of Motion. No: Lymphadenopathy Lungs: Normal Respiratory Effort, Decreased Breath Sounds (Left side). No: Crackles, Rales, Rhonchi Cardiovascular: Regular Rate, Regular Rhythm. No: Systolic Murmur GI/Abdominal Exam: Normal Bowel Sounds, Soft, Non-Tender. No: No Distention Back Exam: Normal Inspection, Full Range of Motion Extremities: No Pedal Edema Skin: Warm, Intact Neuro Extensive - Mental Status: Alert, Oriented x3, Normal Mood/Affect, Normal Cognition, Memory Intact - Patient Data Result Diagrams: 09/16/17 15:55 09/16/17 15:55 *Q Meaningful Use (ADM) - VTE *Q VTE Criteria *Q: - Stroke *Q Stroke Criteria *Q: - AMI *Q AMI Criteria *Q: - Problem List (1) Diarrhea SNOMED Code(s): 72492321 ICD Code: R19.7 - DIARRHEA, UNSPECIFIED Status: Acute Current Visit: Yes (2) Palliative care status SNOMED Code(s): 993349964 ICD Code: Z51.5 - ENCOUNTER FOR PALLIATIVE CARE Status: Acute Current Visit: Yes (3) Pneumonia SNOMED Code(s): 844839823 ICD Code: J18.9 - PNEUMONIA, UNSPECIFIED ORGANISM Status: Acute Current Visit: Yes Qualifiers: Laterality: left Lung location: upper lobe of lung (4) Altered mental status SNOMED Code(s): 990665564 ICD Code: R41.82 - ALTERED MENTAL STATUS, UNSPECIFIED Status: Acute Current Visit: No Problem List Initiated/Reviewed/Updated: Yes Orders Last 24hrs: Active Orders 24 hr Category Date Time Status Cardiac Monitoring [RC] .As Directed Care 09/16/17 19:01 Inactive RT Sputum Induction [RC] Click to Edit Care 09/17/17 07:12 Active Regular Diet [DIET] Diet 09/17/17 Lunch Ordered INFLUENZA A+B AG SCREEN [RM] Routine Lab 09/17/17 08:17 Uncollected UA W/MICROSCOPIC [URIN] Routine Lab 09/17/17 07:13 Uncollected Acetaminophen [Tylenol Arthritis Pain] Med 09/17/17 09:00 Ordered 1,300 mg PO BID Calcium Carbonate [Calcium] Med 09/17/17 09:00 Ordered 2 tab PO DAILY Cholecalciferol (Vitamin D3) [Vitamin D3] Med 09/17/17 09:00 Ordered 1,000 units PO DAILY Clopidogrel [Plavix] Med 09/17/17 09:00 Ordered 75 mg PO DAILY Fluticasone/Salmeterol [Advair 250-50 Diskus] Med 09/17/17 08:15 Ordered 1 each IH BID PRN Gabapentin [Neurontin] Med 09/17/17 09:00 Ordered 600 mg PO BID Levothyroxine [Synthroid] Med 09/18/17 06:00 Ordered 88 mcg PO 0600 Losartan [Cozaar] Med 09/17/17 09:00 Ordered 25 mg PO DAILY Lutein [Lutein] Med 09/17/17 09:00 Ordered 20 mg PO DAILY Melatonin Med 09/17/17 21:00 Ordered 3 mg PO BEDTIME Metoprolol Tartrate [Lopressor] Med 09/17/17 09:00 Ordered 25 mg PO BID Mirtazapine [Remeron] Med 09/17/17 21:00 Ordered 7.5 mg PO BEDTIME Simvastatin [Zocor] Med 09/17/17 21:00 Ordered 20 mg PO BEDTIME Vancomycin [Vancocin] 1 gm Med 09/16/17 20:00 Active Sodium Chloride 0.9% [Normal Saline] 250 ml IV Q24H EKG 12 Lead [EK] Routine Ther 09/16/17 18:56 Ordered EKG 12 Lead [EK] Routine Ther 09/17/17 07:05 Ordered Medication Orders Acetaminophen (Tylenol Arthritis Pain) 1,300 mg PO BID [facility] Cholecalciferol (Vitamin D3) 1,000 units PO DAILY [facility] Clopidogrel Bisulfate (Plavix) 75 mg PO DAILY [facility] Gabapentin (Neurontin) 600 mg PO BID [facility] Sodium Chloride (Normal Saline) 1,000 mls @ 125 mls/hr IV ASDIRECTED [facility] Last Admin: 09/16/17 18:30 Dose: 125 mls/hr Levofloxacin/Dextrose 500 mg/ (Premix) 100 mls @ 100 mls/hr IV Q24H [facility] Last Admin: 09/16/17 18:30 Dose: 100 mls/hr Lactated Ringer's (Ringers, Lactated) 1,000 mls @ 125 mls/hr IV ASDIRECTED [facility] Last Admin: 09/17/17 07:03 Dose: 125 mls/hr Infusion: 09/17/17 06:23 Dose: 125 mls/hr Admin: 09/16/17 22:23 Dose: 125 mls/hr Vancomycin HCl 1 gm/ Sodium (Chloride) 250 mls @ 167 mls/hr IV Q24H [facility] Last Admin: 09/16/17 21:08 Dose: 167 mls/hr Levothyroxine Sodium (Synthroid) 88 mcg PO 0600 [facility] Losartan Potassium (Cozaar) 25 mg PO DAILY [facility] Melatonin (Melatonin) 3 mg PO BEDTIME [facility] Metoprolol Tartrate (Lopressor) 25 mg PO BID [facility] Mirtazapine (Remeron) 7.5 mg PO BEDTIME [facility] Non-Formulary Medication (Calcium Carbonate [Calcium]) 2 tab PO DAILY [facility] Non-Formulary Medication (Fluticasone/Salmeterol [Advair 250-50 Diskus]) 1 each IH BID PRN PRN Reason: ASDIRECTED Non-Formulary Medication (Lutein [Lutein]) 20 mg PO DAILY [facility] Ondansetron HCl (Zofran) 4 mg IV Q4H PRN PRN Reason: Nausea/Vomiting Simvastatin (Zocor) 20 mg PO BEDTIME [facility] Sodium Chloride (Saline Flush) 10 ml FLUSH ASDIRECTED PRN PRN Reason: Keep Vein Open Assessment/Plan Comment:: 1. Admit to the hospital for IV antibiotics. These were started last night in the ER. 2. Ambulate as tolerated and up in chair. 3. Regular diet. 4. Restart all her home medications. 5. Check sputum culture, influenza and UA. 6. She was started on telemetry and I will DC that. 7. Continue IV fluids.
--- NOTE | 2017-09-17 08:35 | CT ---
INDICATION: Mental status change. CT HEAD WITHOUT CONTRAST: Serial contiguous 2.5 and 5-mm sections were obtained through the brain without contrast 09/16/2017 and compared with 2016. Total Exam DLP = 879.04 mGy-cm. Calcifications are noted in the internal carotid arteries. There is noted in the genu area of the right internal capsule, a large area of decreased density compatible with a large lacunar infarct. A lacunar infarct may also be present in the basal ganglia on the left, caudal aspect of the basal ganglia on the left. No shift of midline structures or ventricular abnormalities were identified. No other abnormal areas of density were identified - no bleeding site or hematoma was seen. If an acute thrombotic CVA is suspected clinically, additional examination in 2-3 days should be confirmatory, although an MRI would be confirmatory also. IMPRESSION: 1. Overall, little interval change compared with the previous study of 2016, with no acute intracranial abnormality identified. 2. Lacunar infarcts in the internal capsule on the right and basal ganglia on the left. 3. Internal carotid artery calcifications. Report was called to Dr. Torres at approximately 1646 hours, 09/16/2017. [facility]
[2017-09-17] MEDS ORDERED: Formoterol/Mometasone 200-5 MCG 8.8 GM Inhaler IH PRN ×2 (08:45→12:00)
--- NOTE | 2017-09-17 08:51 | CR ---
INDICATION: Cough. CHEST: A single AP upright view of the chest 09/16/2017 was compared with PA view of 08/31/2016 and revealed the heart to be near the upper limits of normal in size. The aorta is tortuous and calcified in the arch area. The lungs appear to be somewhat hyperextended, suggesting the possibility of COPD. Degenerative changes are noted in the spine. An active infiltrate or effusion was not identified, although there is suggestion of some infiltration minimally in the right upper lung field, suprahilar area, which could represent a focal area of pneumonia. When clinically possible, a PA view and a lateral view of the chest are recommended for further evaluation of this finding. IMPRESSION: 1. Possible pneumonia in the right upper lobe. PA and lateral views recommended when clinically possible. 2. ASHD. 3. Probable COPD. Report was called to Dr. Torres at 1646 hours, 09/16/2017. [facility]
[2017-09-17] MEDS ORDERED: Losartan 25 MG Tab PO SCH (09:00)
[2017-09-17] MEDS: Calcium Carbonate/Vitamin D3 1250 MG-200 Unit Tab PO SCH (09:32)
[2017-09-17] MEDS: Metoprolol Tartrate 25 MG Tab PO SCH ×2 (09:33→20:19)
[2017-09-17] MEDS: Gabapentin 600 MG Tab PO SCH ×2 (09:34→20:19)
[2017-09-17] MEDS: Acetaminophen 650 MG Tab.ER PO SCH ×2 (09:34→20:18)
[2017-09-17] MEDS: Clopidogrel 75 MG Tab PO SCH (09:34)
[2017-09-17] MEDS: Levothyroxine 88 MCG Tab PO SCH (09:34)
[2017-09-17] MEDS: Cholecalciferol (Vitamin D3) 1,000 Unit Tab PO SCH (09:34)
[2017-09-17] MEDS ORDERED: Acetaminophen 650 MG Tab.ER PO PRN (14:00)
[2017-09-17] MEDS: Saccharomyces Boulardii (Probiotic) 250 MG Cap PO SCH ×2 (14:15→20:19)
[2017-09-17] MEDS: NS + KCl 20mEq/L 1,000 ML IV SCH (14:51)
[2017-09-17] MEDS: Mirtazapine 15 MG Tab PO SCH (20:19)
[2017-09-17] MEDS: Melatonin 3 MG Tab PO SCH (20:19)
[2017-09-17] MEDS: Simvastatin 20 MG Tab PO SCH (20:19)
[2017-09-18] MEDS: NS + KCl 20mEq/L 1,000 ML IV SCH (02:14)
[2017-09-18] MEDS ORDERED: Losartan 50 MG Tab PO SCH (05:45)
[2017-09-18] MEDS: Levofloxacin/Dextrose 5%-Water 750 MG in Premix Bag 1 BAG IV SCH (05:47)
[2017-09-18] MEDS ORDERED: traMADol 50 MG Tab PO PRN ×3 (05:59→11:06)
[2017-09-18] MEDS: Levothyroxine 88 MCG Tab PO SCH (06:18)
--- NOTE | 2017-09-18 06:26 | PCM.PN ---
- General Info Date of Service: 09/18/17 Admission Dx/Problem (Free Text): Patient states she has a little bit of chest pain this morning is worse with deep inspiration. She says there all the time. She also states that when a couple of the staff got her up the use a rib belt on Thursday night. She states when they put on it hurt and then since then cemented left rib pain. She says her cough is better. She's eating and drinking and she has more energy. She feels her mind is clearing up. - Patient Data Vitals - Most Recent: Last Vital Signs Temp 97.9 F 09/18/17 02:15 Pulse 84 09/18/17 05:30 Resp 20 09/18/17 02:15 BP 190/100 H 09/18/17 05:30 Pulse Ox 94 L 09/18/17 02:15 Weight - Most Recent: 167 lb I&O - Last 24 Hours: Intake & Output 09/17/17 09/17/17 09/18/17 14:59 22:59 06:59 Intake Total 1000 869 750 Output Total 600 Balance 1000 869 150 Lab Results Last 24 Hours: Laboratory Results - last 24 hr 09/17/17 09/17/17 Range/Units 09:15 17:40 Troponin I 0.20 H (0.02-0.06) NG/ML Urine Color Yellow (YELLOW) Urine Appearance Clear (CLEAR) Urine pH 7.0 H (5.0-6.5) Ur Specific [place] 1.010 (1.010-1.025) Urine Protein Negative (NEGATIVE) mg/dL Urine Glucose (UA) Normal (NEGATIVE) mg/dL Urine Ketones Negative (NEGATIVE) mg/dL Urine Occult Blood Moderate H (NEGATIVE) Urine Nitrite Negative (NEGATIVE) Urine Bilirubin Negative (NEGATIVE) Urine Urobilinogen Normal (NEGATIVE) mg/dL Ur Leukocyte Esterase Negative (NEGATIVE) Urine RBC 0-5 (0) Urine WBC 0-5 (0) Ur Squamous Epith Cells Few H (NS,R,O) Urine Bacteria Not seen (NS) Ronald Results Last 24 Hours: Microbiology 09/17/17 21:11 Gram Stain - Final Sputum - Expectorated 09/17/17 09:55 Influenza Type A Antigen Screen - Final Nasal, Left NEGATIVE INFLUENZA A VIRUS AG Influenza Type B Antigen Screen - Final NEGATIVE INFLUENZA B VIRUS AG Med Orders - Current: Current Medications Acetaminophen (Tylenol Arthritis Pain) 1,300 mg PO BID [facility] Last Admin: 09/17/17 20:18 Dose: 1,300 mg Acetaminophen (Tylenol Arthritis Pain) 1,300 mg PO DAILY PRN PRN Reason: Pain Last Admin: 09/17/17 14:56 Dose: 1,300 mg Calcium Carbonate (Calcium Carbonate/Vitamin D 1250 Mg-200 Unit) 2 tab PO DAILY [facility] Last Admin: 09/17/17 09:32 Dose: 2 tab Cholecalciferol (Vitamin D3) 1,000 units PO DAILY [facility] Last Admin: 09/17/17 09:34 Dose: 1,000 units Clopidogrel Bisulfate (Plavix) 75 mg PO DAILY [facility] Last Admin: 09/17/17 09:34 Dose: 75 mg Gabapentin (Neurontin) 600 mg PO BID [facility] Last Admin: 09/17/17 20:19 Dose: 600 mg Levofloxacin/Dextrose 750 mg/ (Premix) 150 mls @ 100 mls/hr IV Q48H [facility] Last Admin: 09/18/17 05:47 Dose: 100 mls/hr Potassium Chloride/Sodium Chloride (Normal Saline With 20 Meq Kcl) 1,000 mls @ 100 mls/hr IV Q10H [facility] Last Admin: 09/18/17 02:14 Dose: 100 mls/hr Vancomycin HCl 1,000 mg/ (Sodium Chloride) 250 mls @ 250 mls/hr IV Q24H [facility] Last Admin: 09/17/17 20:15 Dose: 250 mls/hr Levothyroxine Sodium (Synthroid) 88 mcg PO 0600 [facility] Last Admin: 09/18/17 06:18 Dose: 88 mcg Losartan Potassium (Cozaar) 50 mg PO DAILY [facility] Lutein (Lutein) 20 mg PO DAILY [facility] Last Admin: 09/17/17 09:33 Dose: 20 mg Melatonin (Melatonin) 3 mg PO BEDTIME [facility] Last Admin: 09/17/17 20:19 Dose: 3 mg Metoprolol Tartrate (Lopressor) 25 mg PO BID [facility] Last Admin: 09/17/17 20:19 Dose: 25 mg Mirtazapine (Remeron) 7.5 mg PO BEDTIME [facility] Last Admin: 09/17/17 20:19 Dose: 7.5 mg Mometasone Furoate/Formoterol Fumar (Dulera 200-5 Mcg) 2 puff IH BID PRN PRN Reason: BREATHING ISSUES Ondansetron HCl (Zofran) 4 mg IV Q4H PRN PRN Reason: Nausea/Vomiting Saccharomyces Boulardii (Florastor) 250 mg PO BID [facility] Last Admin: 09/17/17 20:19 Dose: 250 mg Simvastatin (Zocor) 20 mg PO BEDTIME [facility] Last Admin: 09/17/17 20:19 Dose: 20 mg Sodium Chloride (Saline Flush) 10 ml FLUSH ASDIRECTED PRN PRN Reason: Keep Vein Open Tramadol HCl (Ultram) 50 mg PO Q6H PRN PRN Reason: Pain Vancomycin HCl (Pharmacy To Dose - Vancomycin) 1 dose .XX ASDIRECTED [facility] Discontinued Medications Sodium Chloride (Normal Saline) 1,000 mls @ 125 mls/hr IV ASDIRECTED [facility] Last Admin: 09/16/17 18:30 Dose: 125 mls/hr Levofloxacin/Dextrose 500 mg/ (Premix) 100 mls @ 100 mls/hr IV Q24H [facility] Last Admin: 09/16/17 18:30 Dose: 100 mls/hr Lactated Ringer's (Ringers, Lactated) 1,000 mls @ 100 mls/hr IV ASDIRECTED [facility] Last Admin: 09/17/17 07:03 Dose: 125 mls/hr Vancomycin HCl 1,000 mg/ (Sodium Chloride) 250 mls @ 167 mls/hr IV Q24H [facility] Last Admin: 09/16/17 21:55 Dose: Not Given Vancomycin HCl 1 gm/ Sodium (Chloride) 250 mls @ 167 mls/hr IV Q24H [facility] Last Admin: 09/16/17 21:08 Dose: 167 mls/hr Ketorolac Tromethamine (Toradol) 15 mg IVPUSH ONETIME ONE Stop: 09/16/17 20:05 Last Admin: 09/16/17 20:39 Dose: 15 mg Losartan Potassium (Cozaar) 25 mg PO DAILY [facility] Last Admin: 09/17/17 09:33 Dose: 25 mg Mometasone Furoate/Formoterol Fumar (Dulera 200-5 Mcg) 2 puff IH BID PRN PRN Reason: BREATHING ISSUES Vancomycin HCl (Vancomycin) Confirm Administered Dose 1,000 mg .ROUTE .STK-MED ONE Stop: 09/16/17 20:59 Last Admin: 09/16/17 21:08 Dose: Not Given - Exam General: Alert, Oriented, Cooperative Lungs: Normal Respiratory Effort, Rales (Right upper lung field. The rest of the lung wong are clear.) Cardiovascular: Other (Chest wall and some pain left lower ribs. She also has pain over the chest on palpation.) GI/Abdominal Exam: Soft, Non-Tender, No Distention Extremities: No Pedal Edema Psy/Mental Status: Alert, Normal Affect, Normal Mood - Problem List & Annotations (1) Diarrhea SNOMED Code(s): 91025621 Code(s): R19.7 - DIARRHEA, UNSPECIFIED Status: Acute Current Visit: Yes (2) Palliative care status SNOMED Code(s): 631892160 Code(s): Z51.5 - ENCOUNTER FOR PALLIATIVE CARE Status: Acute Current Visit: Yes (3) Pneumonia SNOMED Code(s): 491078620 Code(s): J18.9 - PNEUMONIA, UNSPECIFIED ORGANISM Status: Acute Current Visit: Yes Qualifiers: Laterality: right Lung location: upper lobe of lung (4) Altered mental status SNOMED Code(s): 001700109 Code(s): R41.82 - ALTERED MENTAL STATUS, UNSPECIFIED Status: Acute Current Visit: No (5) Rib pain on left side SNOMED Code(s): 795900178 Code(s): R07.81 - PLEURODYNIA Status: Acute Current Visit: Yes (6) Chest pain SNOMED Code(s): 32785828 Code(s): R07.9 - CHEST PAIN, UNSPECIFIED Status: Acute Current Visit: Yes - Problem List Review Problem List Initiated/Reviewed/Updated: Yes - My Orders Last 24 Hours: My Active Orders 09/17/17 07:12 RT Sputum Induction [RC] Click to Edit 09/17/17 09:00 Acetaminophen [Tylenol Arthritis Pain] 1,300 mg PO BID Calcium Carbonate/Vitamin D3 [Calcium Carbonate/Vitamin D 1250 MG-200 Unit] 2 tab PO DAILY Cholecalciferol (Vitamin D3) [Vitamin D3] 1,000 units PO DAILY Clopidogrel [Plavix] 75 mg PO DAILY Gabapentin [Neurontin] 600 mg PO BID Levothyroxine [Synthroid] 88 mcg PO 0600 Lutein 20 mg PO DAILY Metoprolol Tartrate [Lopressor] 25 mg PO BID 09/17/17 10:00 Vancomycin Pharmacy to Dose [Pharmacy to Dose - Vancomycin] 1 dose .XX ASDIRECTED 09/17/17 12:00 Mometasone/Formoterol [Dulera 200-5 MCG] 2 puff IH BID PRN 09/17/17 13:15 Saccharomyces Boulardii [Florastor] 250 mg PO BID 09/17/17 14:00 Acetaminophen [Tylenol Arthritis Pain] 1,300 mg PO DAILY PRN 09/17/17 15:00 NS + KCl 20mEq/L [Normal Saline with 20 mEq KCl] 1,000 ml IV Q10H 09/17/17 21:00 Melatonin 3 mg PO BEDTIME Mirtazapine [Remeron] 7.5 mg PO BEDTIME Simvastatin [Zocor] 20 mg PO BEDTIME 09/17/17 Lunch Regular Diet [DIET] 09/18/17 05:11 CXR [Chest 2V] [CR] AM CBC WITH AUTO DIFF [HEME] AM COMPREHENSIVE METABOLIC PN,CMP [CHEM] AM 09/18/17 05:19 TROPONIN I [CHEM] Routine 09/18/17 05:45 Losartan [Cozaar] 50 mg PO DAILY 09/18/17 05:59 traMADol [Ultram] 50 mg PO Q6H PRN 09/18/17 06:00 Levofloxacin/Dextrose 5%-Water [Levaquin in D5W 750 MG/150 ML] 750 mg Premix Bag 1 bag IV Q48H 09/18/17 06:20 EKG Documentation Completion [RC] ASDIRECTED Ribs 2V w Chest Lt [CR] Routine EKG 12 Lead [EK] Stat - Plan Plan:: 1. Repeat EKG and troponin. Troponin 0.2 last night. This most likely due to her pneumonia and chest wall pain. 2. Radiologist wanted a two-view x-ray of the chest to define this pneumonia. Chest x-ray this morning and then 2 left ribs because of the pain. 3. DC IV fluids and saline lock IV. 4. Continue IV antibiotics but stop the ankle. 5. Ambulate frequently with assist. 6. Continue her Tylenol and add tramadol 50 mg every 12 hours when necessary for her left rib pain. 7. Blood pressure is up but may be from her pain. If the tramadol does not take care of the pain and make blood pressure went down. Consider increasing Lopressor and/or metoprolol tartrate
[2017-09-18] MEDS: Saccharomyces Boulardii (Probiotic) 250 MG Cap PO SCH ×2 (08:04→20:45)
[2017-09-18] MEDS: Calcium Carbonate/Vitamin D3 1250 MG-200 Unit Tab PO SCH (08:04)
[2017-09-18] MEDS: Losartan 50 MG Tab PO SCH (08:04)
[2017-09-18] MEDS: Acetaminophen 650 MG Tab.ER PO SCH ×2 (08:05→20:46)
[2017-09-18] MEDS: Gabapentin 600 MG Tab PO SCH ×2 (08:05→20:46)
[2017-09-18] MEDS: Metoprolol Tartrate 25 MG Tab PO SCH ×2 (08:05→20:45)
[2017-09-18] MEDS: Clopidogrel 75 MG Tab PO SCH (08:05)
[2017-09-18] MEDS: Cholecalciferol (Vitamin D3) 1,000 Unit Tab PO SCH (08:06)
--- NOTE | 2017-09-18 10:38 | CR ---
INDICATION: Pneumonia. CHEST: AP and lateral views of the chest 09/18/2017 were compared with 2015 and 09/16/2017 and revealed increasing severity of pneumonia in the posterior segment of the right upper lobe with diffuse mild degree of consolidation now present and significant increase in the amount of infiltrate in that area. There is suggestion of pleuritis additionally. Minimal pneumonia may also be present versus fibrosis at the right lower lobe posteriorly at the lung base. Prominent AP diameter, minimally flattened diaphragm leaves, and minimal hyperaeration suggests the possibility of COPD. The heart appears near the upper limits of normal in size, emphasized by the AP positioning. The aorta is tortuous with calcification in the arch. Somewhat demineralized bony structures raise question of osteoporosis. This should be correlated clinically. Degenerative changes with bridging hyperostotic spurs are noted in the upper middle through lower middle thoracic spine. IMPRESSION: 1. Increasing severity of right upper lobe pneumonia. Followup to clearing. 2. Probable COPD. 3. ASHD. 4. Probable osteoporosis. 5. DJD spine. MTDD
--- NOTE | 2017-09-18 10:40 | CR ---
INDICATION: Left rib pain. LEFT RIBS: Five images of the left ribs were obtained and revealed no displaced fracture site or other definite bony abnormality. MTDD
[2017-09-18] MEDS ORDERED: Losartan 50 MG Tab PO ONE (15:36)
[2017-09-18] MEDS ORDERED: Sodium Chloride 0.9% 250 ML IV SCH (20:00)
[2017-09-18] MEDS: Melatonin 3 MG Tab PO SCH (20:45)
[2017-09-18] MEDS: Mirtazapine 15 MG Tab PO SCH (20:46)
[2017-09-18] MEDS: Simvastatin 20 MG Tab PO SCH (20:47)
[2017-09-19] MEDS: Levothyroxine 88 MCG Tab PO SCH (06:05)
[2017-09-19] MEDS: Metoprolol Tartrate 25 MG Tab PO SCH ×2 (08:27→21:11)
[2017-09-19] MEDS: Cholecalciferol (Vitamin D3) 1,000 Unit Tab PO SCH (08:27)
[2017-09-19] MEDS: Clopidogrel 75 MG Tab PO SCH (08:28)
[2017-09-19] MEDS: Gabapentin 600 MG Tab PO SCH ×2 (08:28→21:12)
[2017-09-19] MEDS: Acetaminophen 650 MG Tab.ER PO SCH ×2 (08:28→21:12)
[2017-09-19] MEDS: Saccharomyces Boulardii (Probiotic) 250 MG Cap PO SCH ×2 (08:29→21:11)
[2017-09-19] MEDS: Calcium Carbonate/Vitamin D3 1250 MG-200 Unit Tab PO SCH (08:29)
[2017-09-19] MEDS: Losartan 50 MG Tab PO SCH (08:30)
--- NOTE | 2017-09-19 10:26 | PCM.PN ---
- General Info Date of Service: 09/19/17 Admission Dx/Problem (Free Text): Patient states her breathing is much better and she states her cough is getting better. She had a little sweaty for this morning when she woke up. But she denies fevers, chills, shortness of breath, nasal congestion, sore throat. Yesterday morning she had some vomiting. Then it got better until this morning when she had breakfast she felt a little nauseated. That she stop eating and she 's been fine. - Patient Data Vitals - Most Recent: Last Vital Signs Temp 97.9 F 09/19/17 07:40 Pulse 74 09/19/17 08:27 Resp 18 09/19/17 07:40 BP 179/89 H 09/19/17 08:30 Pulse Ox 95 09/19/17 07:40 Weight - Most Recent: 167 lb I&O - Last 24 Hours: Intake & Output 09/18/17 09/19/17 09/19/17 22:59 06:59 14:59 Intake Total 250 Output Total 450 Balance -200 Ronald Results Last 24 Hours: Microbiology 09/17/17 21:11 Gram Stain - Final Sputum - Expectorated Sputum Culture - Final YEAST Med Orders - Current: Current Medications Acetaminophen (Tylenol Arthritis Pain) 1,300 mg PO BID [facility] Last Admin: 09/19/17 08:28 Dose: 1,300 mg Acetaminophen (Tylenol Arthritis Pain) 1,300 mg PO DAILY PRN PRN Reason: Pain Last Admin: 09/17/17 14:56 Dose: 1,300 mg Calcium Carbonate (Calcium Carbonate/Vitamin D 1250 Mg-200 Unit) 2 tab PO DAILY [facility] Last Admin: 09/19/17 08:29 Dose: 2 tab Cholecalciferol (Vitamin D3) 1,000 units PO DAILY [facility] Last Admin: 09/19/17 08:27 Dose: 1,000 units Clopidogrel Bisulfate (Plavix) 75 mg PO DAILY [facility] Last Admin: 09/19/17 08:28 Dose: 75 mg Gabapentin (Neurontin) 600 mg PO BID [facility] Last Admin: 09/19/17 08:28 Dose: 600 mg Levofloxacin/Dextrose 750 mg/ (Premix) 150 mls @ 100 mls/hr IV Q48H [facility] Last Admin: 09/18/17 05:47 Dose: 100 mls/hr Sodium Chloride (Normal Saline) 250 mls @ 100 mls/hr IV ASDIRECTED [facility] Levothyroxine Sodium (Synthroid) 88 mcg PO 0600 [facility] Last Admin: 09/19/17 06:05 Dose: 88 mcg Losartan Potassium (Cozaar) 100 mg PO DAILY [facility] Lutein (Lutein) 20 mg PO DAILY [facility] Last Admin: 09/19/17 08:30 Dose: 20 mg Melatonin (Melatonin) 3 mg PO BEDTIME [facility] Last Admin: 09/18/17 20:45 Dose: 3 mg Metoprolol Tartrate (Lopressor) 25 mg PO BID [facility] Last Admin: 09/19/17 08:27 Dose: 25 mg Mirtazapine (Remeron) 7.5 mg PO BEDTIME [facility] Last Admin: 09/18/17 20:46 Dose: 7.5 mg Mometasone Furoate/Formoterol Fumar (Dulera 200-5 Mcg) 2 puff IH BID PRN PRN Reason: BREATHING ISSUES Ondansetron HCl (Zofran) 4 mg IV Q4H PRN PRN Reason: Nausea/Vomiting Saccharomyces Boulardii (Florastor) 250 mg PO BID [facility] Last Admin: 09/19/17 08:29 Dose: 250 mg Simvastatin (Zocor) 20 mg PO BEDTIME [facility] Last Admin: 09/18/17 20:47 Dose: 20 mg Sodium Chloride (Saline Flush) 10 ml FLUSH ASDIRECTED PRN PRN Reason: Keep Vein Open Last Admin: 09/18/17 21:35 Dose: 10 ml Tramadol HCl (Ultram) 50 mg PO Q6H PRN PRN Reason: PAIN Discontinued Medications Sodium Chloride (Normal Saline) 1,000 mls @ 125 mls/hr IV ASDIRECTED [facility] Last Admin: 09/16/17 18:30 Dose: 125 mls/hr Levofloxacin/Dextrose 500 mg/ (Premix) 100 mls @ 100 mls/hr IV Q24H [facility] Last Admin: 09/16/17 18:30 Dose: 100 mls/hr Lactated Ringer's (Ringers, Lactated) 1,000 mls @ 100 mls/hr IV ASDIRECTED [facility] Last Admin: 09/17/17 07:03 Dose: 125 mls/hr Vancomycin HCl 1,000 mg/ (Sodium Chloride) 250 mls @ 167 mls/hr IV Q24H [facility] Last Admin: 09/16/17 21:55 Dose: Not Given Vancomycin HCl 1 gm/ Sodium (Chloride) 250 mls @ 167 mls/hr IV Q24H [facility] Last Admin: 09/16/17 21:08 Dose: 167 mls/hr Potassium Chloride/Sodium Chloride (Normal Saline With 20 Meq Kcl) 1,000 mls @ 100 mls/hr IV Q10H [facility] Last Admin: 09/18/17 02:14 Dose: 100 mls/hr Vancomycin HCl 1,000 mg/ (Sodium Chloride) 250 mls @ 250 mls/hr IV Q24H [facility] Last Admin: 09/18/17 20:05 Dose: 250 mls/hr Ketorolac Tromethamine (Toradol) 15 mg IVPUSH ONETIME ONE Stop: 09/16/17 20:05 Last Admin: 09/16/17 20:39 Dose: 15 mg Losartan Potassium (Cozaar) 25 mg PO DAILY [facility] Last Admin: 09/17/17 09:33 Dose: 25 mg Losartan Potassium (Cozaar) 50 mg PO DAILY [facility] Last Admin: 09/19/17 08:30 Dose: 50 mg Losartan Potassium (Cozaar) 50 mg PO ONETIME ONE Stop: 09/18/17 15:37 Last Admin: 09/18/17 16:02 Dose: 50 mg Mometasone Furoate/Formoterol Fumar (Dulera 200-5 Mcg) 2 puff IH BID PRN PRN Reason: BREATHING ISSUES Tramadol HCl (Ultram) 50 mg PO Q6H PRN PRN Reason: Pain Tramadol HCl (Ultram) 50 mg PO Q12H PRN PRN Reason: Pain Last Admin: 09/18/17 06:37 Dose: 50 mg Vancomycin HCl (Vancomycin) Confirm Administered Dose 1,000 mg .ROUTE .STK-MED ONE Stop: 09/16/17 20:59 Last Admin: 09/16/17 21:08 Dose: Not Given Vancomycin HCl (Pharmacy To Dose - Vancomycin) 1 dose .XX ASDIRECTED [facility] - Exam General: Alert, Cooperative Lungs: Clear to Auscultation, Normal Respiratory Effort. No: Crackles, Rales, Rhonchi Cardiovascular: Regular Rate, Regular Rhythm, No Murmurs Extremities: No Pedal Edema - Problem List & Annotations (1) Diarrhea SNOMED Code(s): 63992214 Code(s): R19.7 - DIARRHEA, UNSPECIFIED Status: Acute Current Visit: Yes (2) Palliative care status SNOMED Code(s): 565033918 Code(s): Z51.5 - ENCOUNTER FOR PALLIATIVE CARE Status: Acute Current Visit: Yes (3) Pneumonia SNOMED Code(s): 235397927 Code(s): J18.9 - PNEUMONIA, UNSPECIFIED ORGANISM Status: Acute Current Visit: Yes Qualifiers: Laterality: right Lung location: upper lobe of lung (4) Altered mental status SNOMED Code(s): 187806941 Code(s): R41.82 - ALTERED MENTAL STATUS, UNSPECIFIED Status: Acute Current Visit: No (5) Rib pain on left side SNOMED Code(s): 851068084 Code(s): R07.81 - PLEURODYNIA Status: Acute Current Visit: Yes (6) Chest pain SNOMED Code(s): 32130238 Code(s): R07.9 - CHEST PAIN, UNSPECIFIED Status: Acute Current Visit: Yes - Problem List Review Problem List Initiated/Reviewed/Updated: Yes - My Orders Last 24 Hours: My Active Orders 09/18/17 11:06 traMADol [Ultram] 50 mg PO Q6H PRN 09/18/17 20:00 Sodium Chloride 0.9% [Normal Saline] 250 ml IV ASDIRECTED 09/19/17 10:24 Losartan [Cozaar] 100 mg PO DAILY - Plan Plan:: 1. Stop vancomycin. 2. Continue current care. 3. Up in chair and ambulate frequently.
[2017-09-19] MEDS ORDERED: Losartan 50 MG Tab PO ONE (10:45)
[2017-09-19] MEDS ORDERED: Bisacodyl 5 MG Tab PO PRN ×2 (18:25→20:31)
[2017-09-19] MEDS: Melatonin 3 MG Tab PO SCH (21:11)
[2017-09-19] MEDS: Mirtazapine 15 MG Tab PO SCH (21:12)
[2017-09-19] MEDS: Simvastatin 20 MG Tab PO SCH (21:13)
[2017-09-20] MEDS: Levofloxacin/Dextrose 5%-Water 750 MG in Premix Bag 1 BAG IV SCH (06:18)
[2017-09-20] MEDS: Levothyroxine 88 MCG Tab PO SCH (06:24)
--- NOTE | 2017-09-20 07:59 | PCM.PN ---
- General Info Date of Service: 09/20/17 Admission Dx/Problem (Free Text): Patient denies nausea or vomiting. She still has a cough. No shortness breath, wheezing. Feels little weak and she needs use a walker which she normally does not use at home. - Patient Data Vitals - Most Recent: Last Vital Signs Temp 98.2 F 09/19/17 20:00 Pulse 78 09/20/17 04:00 Resp 16 09/20/17 04:00 BP 144/80 H 09/20/17 04:00 Pulse Ox 97 09/20/17 04:00 Weight - Most Recent: 167 lb I&O - Last 24 Hours: Intake & Output 09/19/17 09/20/17 09/20/17 22:59 06:59 14:59 Output Total 400 Balance -400 Ronald Results Last 24 Hours: Microbiology 09/17/17 21:11 Gram Stain - Final Sputum - Expectorated Sputum Culture - Final YEAST Med Orders - Current: Current Medications Acetaminophen (Tylenol Arthritis Pain) 1,300 mg PO BID [facility] Last Admin: 09/19/17 21:12 Dose: 1,300 mg Acetaminophen (Tylenol Arthritis Pain) 1,300 mg PO DAILY PRN PRN Reason: Pain Last Admin: 09/17/17 14:56 Dose: 1,300 mg Bisacodyl (Dulcolax) 5 mg PO DAILY PRN PRN Reason: Constipation Last Admin: 09/19/17 21:56 Dose: 5 mg Calcium Carbonate (Calcium Carbonate/Vitamin D 1250 Mg-200 Unit) 2 tab PO DAILY [facility] Last Admin: 09/19/17 08:29 Dose: 2 tab Cholecalciferol (Vitamin D3) 1,000 units PO DAILY [facility] Last Admin: 09/19/17 08:27 Dose: 1,000 units Clopidogrel Bisulfate (Plavix) 75 mg PO DAILY [facility] Last Admin: 09/19/17 08:28 Dose: 75 mg Gabapentin (Neurontin) 600 mg PO BID [facility] Last Admin: 09/19/17 21:12 Dose: 600 mg Levofloxacin/Dextrose 750 mg/ (Premix) 150 mls @ 100 mls/hr IV Q48H [facility] Last Admin: 09/20/17 06:18 Dose: 100 mls/hr Sodium Chloride (Normal Saline) 250 mls @ 100 mls/hr IV ASDIRECTED [facility] Last Admin: 09/20/17 06:19 Dose: 100 mls/hr Levothyroxine Sodium (Synthroid) 88 mcg PO 0600 [facility] Last Admin: 09/20/17 06:24 Dose: 88 mcg Losartan Potassium (Cozaar) 100 mg PO DAILY [facility] Lutein (Lutein) 20 mg PO DAILY [facility] Last Admin: 09/19/17 08:30 Dose: 20 mg Melatonin (Melatonin) 3 mg PO BEDTIME [facility] Last Admin: 09/19/17 21:11 Dose: 3 mg Metoprolol Tartrate (Lopressor) 25 mg PO BID [facility] Last Admin: 09/19/17 21:11 Dose: 25 mg Mirtazapine (Remeron) 7.5 mg PO BEDTIME [facility] Last Admin: 09/19/17 21:12 Dose: 7.5 mg Mometasone Furoate/Formoterol Fumar (Dulera 200-5 Mcg) 2 puff IH BID PRN PRN Reason: BREATHING ISSUES Ondansetron HCl (Zofran) 4 mg IV Q4H PRN PRN Reason: Nausea/Vomiting Saccharomyces Boulardii (Florastor) 250 mg PO BID [facility] Last Admin: 09/19/17 21:11 Dose: 250 mg Simvastatin (Zocor) 20 mg PO BEDTIME [facility] Last Admin: 09/19/17 21:13 Dose: 20 mg Sodium Chloride (Saline Flush) 10 ml FLUSH ASDIRECTED PRN PRN Reason: Keep Vein Open Last Admin: 09/18/17 21:35 Dose: 10 ml Tramadol HCl (Ultram) 50 mg PO Q6H PRN PRN Reason: PAIN Discontinued Medications Bisacodyl (Dulcolax) 5 mg PO DAILY PRN PRN Reason: Constipation Sodium Chloride (Normal Saline) 1,000 mls @ 125 mls/hr IV ASDIRECTED [facility] Last Admin: 09/16/17 18:30 Dose: 125 mls/hr Levofloxacin/Dextrose 500 mg/ (Premix) 100 mls @ 100 mls/hr IV Q24H [facility] Last Admin: 09/16/17 18:30 Dose: 100 mls/hr Lactated Ringer's (Ringers, Lactated) 1,000 mls @ 100 mls/hr IV ASDIRECTED [facility] Last Admin: 09/17/17 07:03 Dose: 125 mls/hr Vancomycin HCl 1,000 mg/ (Sodium Chloride) 250 mls @ 167 mls/hr IV Q24H [facility] Last Admin: 09/16/17 21:55 Dose: Not Given Vancomycin HCl 1 gm/ Sodium (Chloride) 250 mls @ 167 mls/hr IV Q24H [facility] Last Admin: 09/16/17 21:08 Dose: 167 mls/hr Potassium Chloride/Sodium Chloride (Normal Saline With 20 Meq Kcl) 1,000 mls @ 100 mls/hr IV Q10H [facility] Last Admin: 09/18/17 02:14 Dose: 100 mls/hr Vancomycin HCl 1,000 mg/ (Sodium Chloride) 250 mls @ 250 mls/hr IV Q24H [facility] Last Admin: 09/18/17 20:05 Dose: 250 mls/hr Ketorolac Tromethamine (Toradol) 15 mg IVPUSH ONETIME ONE Stop: 09/16/17 20:05 Last Admin: 09/16/17 20:39 Dose: 15 mg Losartan Potassium (Cozaar) 25 mg PO DAILY [facility] Last Admin: 09/17/17 09:33 Dose: 25 mg Losartan Potassium (Cozaar) 50 mg PO DAILY [facility] Last Admin: 09/19/17 08:30 Dose: 50 mg Losartan Potassium (Cozaar) 50 mg PO ONETIME ONE Stop: 09/18/17 15:37 Last Admin: 09/18/17 16:02 Dose: 50 mg Losartan Potassium (Cozaar) 50 mg PO ONETIME ONE Stop: 09/19/17 10:46 Last Admin: 09/19/17 11:21 Dose: 50 mg Mometasone Furoate/Formoterol Fumar (Dulera 200-5 Mcg) 2 puff IH BID PRN PRN Reason: BREATHING ISSUES Tramadol HCl (Ultram) 50 mg PO Q6H PRN PRN Reason: Pain Tramadol HCl (Ultram) 50 mg PO Q12H PRN PRN Reason: Pain Last Admin: 09/18/17 06:37 Dose: 50 mg Vancomycin HCl (Vancomycin) Confirm Administered Dose 1,000 mg .ROUTE .STK-MED ONE Stop: 09/16/17 20:59 Last Admin: 09/16/17 21:08 Dose: Not Given Vancomycin HCl (Pharmacy To Dose - Vancomycin) 1 dose .XX ASDIRECTED [facility] - Exam General: Alert, Oriented Neck: Supple Lungs: Clear to Auscultation, Rales (Right upper lung field. The rest of the lung wong bilaterally are clear) Cardiovascular: Regular Rate, Regular Rhythm, No Murmurs Extremities: No Pedal Edema - Problem List & Annotations (1) Diarrhea SNOMED Code(s): 67853770 Code(s): R19.7 - DIARRHEA, UNSPECIFIED Status: Acute Current Visit: Yes (2) Palliative care status SNOMED Code(s): 487486369 Code(s): Z51.5 - ENCOUNTER FOR PALLIATIVE CARE Status: Acute Current Visit: Yes (3) Pneumonia SNOMED Code(s): 064476543 Code(s): J18.9 - PNEUMONIA, UNSPECIFIED ORGANISM Status: Acute Current Visit: Yes Qualifiers: Laterality: right Lung location: upper lobe of lung (4) Altered mental status SNOMED Code(s): 330212652 Code(s): R41.82 - ALTERED MENTAL STATUS, UNSPECIFIED Status: Acute Current Visit: No (5) Rib pain on left side SNOMED Code(s): 791428251 Code(s): R07.81 - PLEURODYNIA Status: Acute Current Visit: No (6) Chest pain SNOMED Code(s): 88903859 Code(s): R07.9 - CHEST PAIN, UNSPECIFIED Status: Acute Current Visit: No - Problem List Review Problem List Initiated/Reviewed/Updated: Yes - My Orders Last 24 Hours: My Active Orders 09/19/17 20:31 Bisacodyl [Dulcolax] 5 mg PO DAILY PRN 09/20/17 09:00 Losartan [Cozaar] 100 mg PO DAILY - Plan Plan:: 1. Ambulate and up in chair. 2. DC Levaquin IV and start Levaquin by mouth. 3. Anticipate discharge in the a.m. with home health.
[2017-09-20] MEDS: Calcium Carbonate/Vitamin D3 1250 MG-200 Unit Tab PO SCH (08:46)
[2017-09-20] MEDS: Losartan 100 MG Tab PO SCH (08:47)
[2017-09-20] MEDS: Metoprolol Tartrate 25 MG Tab PO SCH ×2 (08:47→21:15)
[2017-09-20] MEDS: Acetaminophen 650 MG Tab.ER PO SCH ×2 (08:47→21:15)
[2017-09-20] MEDS: Gabapentin 600 MG Tab PO SCH ×2 (08:47→21:15)
[2017-09-20] MEDS: Saccharomyces Boulardii (Probiotic) 250 MG Cap PO SCH ×2 (08:47→21:14)
[2017-09-20] MEDS: Clopidogrel 75 MG Tab PO SCH (08:48)
[2017-09-20] MEDS: Cholecalciferol (Vitamin D3) 1,000 Unit Tab PO SCH (08:48)
[2017-09-20] MEDS: Mirtazapine 15 MG Tab PO SCH (21:15)
[2017-09-20] MEDS: Simvastatin 20 MG Tab PO SCH (21:15)
[2017-09-20] MEDS: Melatonin 3 MG Tab PO SCH (21:15)
[2017-09-21] MEDS: Levothyroxine 88 MCG Tab PO SCH (05:50)
[2017-09-21 07:52] VITALS: BP 143/75
[2017-09-21] MEDS: Calcium Carbonate/Vitamin D3 1250 MG-200 Unit Tab PO SCH (08:08)
[2017-09-21] MEDS: Saccharomyces Boulardii (Probiotic) 250 MG Cap PO SCH (08:09)
[2017-09-21] MEDS: Metoprolol Tartrate 25 MG Tab PO SCH (08:09)
[2017-09-21] MEDS: Losartan 100 MG Tab PO SCH (08:09)
--- NOTE | 2017-09-21 08:09 | PCM.PN ---
- General Info Date of Service: 09/21/17 Admission Dx/Problem (Free Text): Patient is doing well. Cough is much improved. No nausea, vomiting, shortness of breath, fevers, chills or leg swelling. - Patient Data Vitals - Most Recent: Last Vital Signs Temp 97.9 F 09/21/17 07:51 Pulse 80 09/21/17 06:13 Resp 18 09/21/17 07:51 BP 143/75 H 09/21/17 07:51 Pulse Ox 94 L 09/21/17 07:51 Weight - Most Recent: 167 lb I&O - Last 24 Hours: Intake & Output 09/20/17 09/21/17 09/21/17 22:59 06:59 14:59 Output Total 1100 Balance -1100 Med Orders - Current: Current Medications Acetaminophen (Tylenol Arthritis Pain) 1,300 mg PO BID [facility] Last Admin: 09/20/17 21:15 Dose: 1,300 mg Acetaminophen (Tylenol Arthritis Pain) 1,300 mg PO DAILY PRN PRN Reason: Pain Last Admin: 09/17/17 14:56 Dose: 1,300 mg Bisacodyl (Dulcolax) 5 mg PO DAILY PRN PRN Reason: Constipation Last Admin: 09/19/17 21:56 Dose: 5 mg Calcium Carbonate (Calcium Carbonate/Vitamin D 1250 Mg-200 Unit) 2 tab PO DAILY [facility] Last Admin: 09/20/17 08:46 Dose: 2 tab Cholecalciferol (Vitamin D3) 1,000 units PO DAILY [facility] Last Admin: 09/20/17 08:48 Dose: 1,000 units Clopidogrel Bisulfate (Plavix) 75 mg PO DAILY [facility] Last Admin: 09/20/17 08:48 Dose: 75 mg Gabapentin (Neurontin) 600 mg PO BID [facility] Last Admin: 09/20/17 21:15 Dose: 600 mg Levofloxacin (Levaquin) 750 mg PO Q48H [facility] Levothyroxine Sodium (Synthroid) 88 mcg PO 0600 [facility] Last Admin: 09/21/17 05:50 Dose: 88 mcg Losartan Potassium (Cozaar) 100 mg PO DAILY [facility] Last Admin: 09/20/17 08:47 Dose: 100 mg Lutein (Lutein) 20 mg PO DAILY [facility] Last Admin: 09/20/17 08:47 Dose: 20 mg Melatonin (Melatonin) 3 mg PO BEDTIME [facility] Last Admin: 09/20/17 21:15 Dose: 3 mg Metoprolol Tartrate (Lopressor) 25 mg PO BID [facility] Last Admin: 09/20/17 21:15 Dose: 25 mg Mirtazapine (Remeron) 7.5 mg PO BEDTIME [facility] Last Admin: 09/20/17 21:15 Dose: 7.5 mg Mometasone Furoate/Formoterol Fumar (Dulera 200-5 Mcg) 2 puff IH BID PRN PRN Reason: BREATHING ISSUES Ondansetron HCl (Zofran) 4 mg IV Q4H PRN PRN Reason: Nausea/Vomiting Saccharomyces Boulardii (Florastor) 250 mg PO BID [facility] Last Admin: 09/20/17 21:14 Dose: 250 mg Simvastatin (Zocor) 20 mg PO BEDTIME [facility] Last Admin: 09/20/17 21:15 Dose: 20 mg Sodium Chloride (Saline Flush) 10 ml FLUSH ASDIRECTED PRN PRN Reason: Keep Vein Open Last Admin: 09/18/17 21:35 Dose: 10 ml Discontinued Medications Bisacodyl (Dulcolax) 5 mg PO DAILY PRN PRN Reason: Constipation Sodium Chloride (Normal Saline) 1,000 mls @ 125 mls/hr IV ASDIRECTED [facility] Last Admin: 09/16/17 18:30 Dose: 125 mls/hr Levofloxacin/Dextrose 500 mg/ (Premix) 100 mls @ 100 mls/hr IV Q24H [facility] Last Admin: 09/16/17 18:30 Dose: 100 mls/hr Lactated Ringer's (Ringers, Lactated) 1,000 mls @ 100 mls/hr IV ASDIRECTED [facility] Last Admin: 09/17/17 07:03 Dose: 125 mls/hr Vancomycin HCl 1,000 mg/ (Sodium Chloride) 250 mls @ 167 mls/hr IV Q24H [facility] Last Admin: 09/16/17 21:55 Dose: Not Given Vancomycin HCl 1 gm/ Sodium (Chloride) 250 mls @ 167 mls/hr IV Q24H [facility] Last Admin: 09/16/17 21:08 Dose: 167 mls/hr Levofloxacin/Dextrose 750 mg/ (Premix) 150 mls @ 100 mls/hr IV Q48H [facility] Last Admin: 09/20/17 06:18 Dose: 100 mls/hr Potassium Chloride/Sodium Chloride (Normal Saline With 20 Meq Kcl) 1,000 mls @ 100 mls/hr IV Q10H [facility] Last Admin: 09/18/17 02:14 Dose: 100 mls/hr Vancomycin HCl 1,000 mg/ (Sodium Chloride) 250 mls @ 250 mls/hr IV Q24H [facility] Last Admin: 09/18/17 20:05 Dose: 250 mls/hr Sodium Chloride (Normal Saline) 250 mls @ 100 mls/hr IV ASDIRECTED [facility] Last Admin: 09/20/17 06:19 Dose: 100 mls/hr Ketorolac Tromethamine (Toradol) 15 mg IVPUSH ONETIME ONE Stop: 09/16/17 20:05 Last Admin: 09/16/17 20:39 Dose: 15 mg Losartan Potassium (Cozaar) 25 mg PO DAILY [facility] Last Admin: 09/17/17 09:33 Dose: 25 mg Losartan Potassium (Cozaar) 50 mg PO DAILY [facility] Last Admin: 09/19/17 08:30 Dose: 50 mg Losartan Potassium (Cozaar) 50 mg PO ONETIME ONE Stop: 09/18/17 15:37 Last Admin: 09/18/17 16:02 Dose: 50 mg Losartan Potassium (Cozaar) 50 mg PO ONETIME ONE Stop: 09/19/17 10:46 Last Admin: 09/19/17 11:21 Dose: 50 mg Mometasone Furoate/Formoterol Fumar (Dulera 200-5 Mcg) 2 puff IH BID PRN PRN Reason: BREATHING ISSUES Tramadol HCl (Ultram) 50 mg PO Q6H PRN PRN Reason: Pain Tramadol HCl (Ultram) 50 mg PO Q12H PRN PRN Reason: Pain Last Admin: 09/18/17 06:37 Dose: 50 mg Tramadol HCl (Ultram) 50 mg PO Q6H PRN PRN Reason: PAIN Vancomycin HCl (Vancomycin) Confirm Administered Dose 1,000 mg .ROUTE .STK-MED ONE Stop: 09/16/17 20:59 Last Admin: 09/16/17 21:08 Dose: Not Given Vancomycin HCl (Pharmacy To Dose - Vancomycin) 1 dose .XX ASDIRECTED [facility] - Exam General: Alert, Oriented, Cooperative Lungs: Clear to Auscultation, Normal Respiratory Effort Cardiovascular: Regular Rate, Regular Rhythm, No Murmurs Extremities: No Pedal Edema - Problem List & Annotations (1) Diarrhea SNOMED Code(s): 17819973 Code(s): R19.7 - DIARRHEA, UNSPECIFIED Status: Acute Current Visit: Yes (2) Palliative care status SNOMED Code(s): 347089190 Code(s): Z51.5 - ENCOUNTER FOR PALLIATIVE CARE Status: Acute Current Visit: Yes (3) Pneumonia SNOMED Code(s): 870081464 Code(s): J18.9 - PNEUMONIA, UNSPECIFIED ORGANISM Status: Acute Current Visit: Yes Qualifiers: Laterality: right Lung location: upper lobe of lung (4) Altered mental status SNOMED Code(s): 151969351 Code(s): R41.82 - ALTERED MENTAL STATUS, UNSPECIFIED Status: Acute Current Visit: No (5) Rib pain on left side SNOMED Code(s): 143926953 Code(s): R07.81 - PLEURODYNIA Status: Acute Current Visit: No (6) Chest pain SNOMED Code(s): 47244981 Code(s): R07.9 - CHEST PAIN, UNSPECIFIED Status: Acute Current Visit: No (7) HTN, Benign essential hypertension SNOMED Code(s): 7051667 Code(s): I10 - ESSENTIAL (PRIMARY) HYPERTENSION Status: Chronic Current Visit: No - Problem List Review Problem List Initiated/Reviewed/Updated: Yes - My Orders Last 24 Hours: My Active Orders 09/20/17 09:00 Losartan [Cozaar] 100 mg PO DAILY 09/22/17 06:00 Levofloxacin [Levaquin] 750 mg PO Q48H - Plan Plan:: 1. Discharge patient to home on her normal home medications. 2. Home health 3. Levaquin 750 every 72 hours.
[2017-09-21] MEDS: Gabapentin 600 MG Tab PO SCH (08:10)
[2017-09-21] MEDS: Cholecalciferol (Vitamin D3) 1,000 Unit Tab PO SCH (08:11)
[2017-09-21] MEDS: Acetaminophen 650 MG Tab.ER PO SCH (08:11)
[2017-09-21] MEDS: Clopidogrel 75 MG Tab PO SCH (08:11)
--- NOTE | 2017-09-21 08:16 | PCM.DCSUM1 ---
Discharge Summary - Hospital Course Free Text/Narrative:: Hospital course-patient was admitted and put on IV Lasix. Calculated dose was 750 mg every 48 hours. Patient initially was confused and by the next day or 2 her mentation cleared. She had a cough that her breathing was normal and did not require oxygen. Used IV fluids the first day and then she was able to maintain adequate by mouth's and her IV fluids were discontinued. She walked with a walk with the nurses and did well. No PT OT was ordered because she was doing so well. Her blood pressure was elevated. She normally and metipranolol and losartan 50 mg a day and increase her losartan 100 mg will she was here to give her blood pressure reasonable. I will send her home on her normal dose and have home health follow really closely. Troponin was slightly up but nothing significant. BMP was around 500. She'll be sent home on home health to watch her blood pressure and disease management and home safety. Brief History: This is an 87-year-old female patient that was supposed to go to a card game yesterday. She didn't show up so her friends called. She did not answer the phone sort are to 1 over and found that she was confused and weak. She states she heard the phone ring but did not answer. Then she states her daughter came over anterior to the hospital. And thus lasting she remembers. She states she's had vomiting 1 yesterday and had diarrhea 2 days before that. She is now coughing but wasn't yesterday. She is diagnosed with pneumonia in the ER. She states she is hot and cold and achy. She has nasal congestion but no sore throat. She has not had a flu shot as of yet. - Discharge Data Discharge Date: 09/21/17 Discharge Disposition: Home, W Home Health Agency 06 Condition: Good - Discharge Diagnosis/Problem(s) (1) Diarrhea SNOMED Code(s): 60091596 ICD Code: R19.7 - DIARRHEA, UNSPECIFIED Status: Acute Current Visit: Yes (2) Palliative care status SNOMED Code(s): 762901511 ICD Code: Z51.5 - ENCOUNTER FOR PALLIATIVE CARE Status: Acute Current Visit: Yes (3) Pneumonia SNOMED Code(s): 195430155 ICD Code: J18.9 - PNEUMONIA, UNSPECIFIED ORGANISM Status: Acute Current Visit: Yes Qualifiers: Laterality: right Lung location: upper lobe of lung (4) Altered mental status SNOMED Code(s): 063925480 ICD Code: R41.82 - ALTERED MENTAL STATUS, UNSPECIFIED Status: Acute Current Visit: No (5) Rib pain on left side SNOMED Code(s): 103822892 ICD Code: R07.81 - PLEURODYNIA Status: Acute Current Visit: No (6) Chest pain SNOMED Code(s): 13782894 ICD Code: R07.9 - CHEST PAIN, UNSPECIFIED Status: Acute Current Visit: No (7) HTN, Benign essential hypertension SNOMED Code(s): 2218299 ICD Code: I10 - ESSENTIAL (PRIMARY) HYPERTENSION Status: Chronic Current Visit: No - Patient Instructions Diet: Regular Diet as Tolerated Activity: As Tolerated Driving: May Drive Today, Do Not Drive Showering/Bathing: May Shower Notify Provider of: Increased Pain, Nausea and/or Vomiting Other/Special Instructions: 1. Recheck with Anibal Sam 7-10 days. 2. Home health in regards to hypertension check, weakness, home safety, disease treatment and education. 3. Home health to watch blood pressure. She was on 100 mg of losartan here. I sent her home on her regular 25 mg dose. If it's high home health should call Dr. Sam. - Discharge Plan Prescriptions/Med Rec: Levofloxacin [Levaquin] 750 mg PO Q48H #4 tablet Home Medications: Home Meds Calcium Carbonate [Calcium] 2 tab PO DAILY 10/20/14 [History] Cholecalciferol (Vitamin D3) [Vitamin D3] 1,000 units PO DAILY 07/07/17 [History ] Fluticasone/Salmeterol [Advair 250-50 Diskus] 1 each IH BID PRN 07/07/17 [ History] Lutein 20 mg PO DAILY 07/07/17 [History] Simvastatin [Zocor] 20 mg PO BEDTIME 07/07/17 [History] Acetaminophen [Tylenol Arthritis Pain] 1,300 mg PO BID tab.er 07/08/17 [Rx] Clopidogrel [Plavix] 75 mg PO DAILY tablet 07/08/17 [Rx] Gabapentin [Neurontin] 600 mg PO BID tablet 07/08/17 [Rx] Levothyroxine [Synthroid] 88 mcg PO 0600 #90 tablet 07/08/17 [Rx] Losartan [Cozaar] 25 mg PO DAILY tablet 07/08/17 [Rx] Melatonin 3 mg PO BEDTIME tablet 07/08/17 [Rx] Metoprolol Tartrate [Lopressor] 25 mg PO BID tablet 07/08/17 [Rx] Mirtazapine [Remeron] 7.5 mg PO BEDTIME tablet 07/08/17 [Rx] Acetaminophen [Tylenol Arthritis] 1,300 mg PO ONETIME PRN 09/17/17 [History] Bifidobacterium Infantis [Align] 4 mg PO DAILY 09/17/17 [History] Levofloxacin [Levaquin] 750 mg PO Q48H #4 tablet 09/21/17 [Rx] Patient Handouts: Deep Vein Thrombosis Forms: ED Department Discharge Referrals: Anibal Sam MD [Primary Care Provider] - - Patient Data Vitals - Most Recent: Last Vital Signs Temp 97.9 F 09/21/17 07:51 Pulse 83 09/21/17 08:09 Resp 18 09/21/17 07:51 BP 143/75 H 09/21/17 08:09 Pulse Ox 94 L 09/21/17 07:51 Weight - Most Recent: 167 lb I&O - Last 24 hours: Intake & Output 09/20/17 09/21/17 09/21/17 22:59 06:59 14:59 Output Total 1100 Balance -1100 Med Orders - Current: Current Medications Acetaminophen (Tylenol Arthritis Pain) 1,300 mg PO BID [facility] Last Admin: 09/21/17 08:11 Dose: 1,300 mg Acetaminophen (Tylenol Arthritis Pain) 1,300 mg PO DAILY PRN PRN Reason: Pain Last Admin: 09/17/17 14:56 Dose: 1,300 mg Bisacodyl (Dulcolax) 5 mg PO DAILY PRN PRN Reason: Constipation Last Admin: 09/19/17 21:56 Dose: 5 mg Calcium Carbonate (Calcium Carbonate/Vitamin D 1250 Mg-200 Unit) 2 tab PO DAILY [facility] Last Admin: 09/21/17 08:08 Dose: 2 tab Cholecalciferol (Vitamin D3) 1,000 units PO DAILY [facility] Last Admin: 09/21/17 08:11 Dose: 1,000 units Clopidogrel Bisulfate (Plavix) 75 mg PO DAILY [facility] Last Admin: 09/21/17 08:11 Dose: 75 mg Gabapentin (Neurontin) 600 mg PO BID [facility] Last Admin: 09/21/17 08:10 Dose: 600 mg Levofloxacin (Levaquin) 750 mg PO Q48H [facility] Levothyroxine Sodium (Synthroid) 88 mcg PO 0600 [facility] Last Admin: 09/21/17 05:50 Dose: 88 mcg Losartan Potassium (Cozaar) 100 mg PO DAILY [facility] Last Admin: 09/21/17 08:09 Dose: 100 mg Lutein (Lutein) 20 mg PO DAILY [facility] Last Admin: 09/21/17 08:10 Dose: 20 mg Melatonin (Melatonin) 3 mg PO BEDTIME [facility] Last Admin: 09/20/17 21:15 Dose: 3 mg Metoprolol Tartrate (Lopressor) 25 mg PO BID [facility] Last Admin: 09/21/17 08:09 Dose: 25 mg Mirtazapine (Remeron) 7.5 mg PO BEDTIME [facility] Last Admin: 09/20/17 21:15 Dose: 7.5 mg Mometasone Furoate/Formoterol Fumar (Dulera 200-5 Mcg) 2 puff IH BID PRN PRN Reason: BREATHING ISSUES Ondansetron HCl (Zofran) 4 mg IV Q4H PRN PRN Reason: Nausea/Vomiting Saccharomyces Boulardii (Florastor) 250 mg PO BID [facility] Last Admin: 09/21/17 08:09 Dose: 250 mg Simvastatin (Zocor) 20 mg PO BEDTIME [facility] Last Admin: 09/20/17 21:15 Dose: 20 mg Sodium Chloride (Saline Flush) 10 ml FLUSH ASDIRECTED PRN PRN Reason: Keep Vein Open Last Admin: 09/18/17 21:35 Dose: 10 ml Discontinued Medications Bisacodyl (Dulcolax) 5 mg PO DAILY PRN PRN Reason: Constipation Sodium Chloride (Normal Saline) 1,000 mls @ 125 mls/hr IV ASDIRECTED [facility] Last Admin: 09/16/17 18:30 Dose: 125 mls/hr Levofloxacin/Dextrose 500 mg/ (Premix) 100 mls @ 100 mls/hr IV Q24H [facility] Last Admin: 09/16/17 18:30 Dose: 100 mls/hr Lactated Ringer's (Ringers, Lactated) 1,000 mls @ 100 mls/hr IV ASDIRECTED [facility] Last Admin: 09/17/17 07:03 Dose: 125 mls/hr Vancomycin HCl 1,000 mg/ (Sodium Chloride) 250 mls @ 167 mls/hr IV Q24H [facility] Last Admin: 09/16/17 21:55 Dose: Not Given Vancomycin HCl 1 gm/ Sodium (Chloride) 250 mls @ 167 mls/hr IV Q24H [facility] Last Admin: 09/16/17 21:08 Dose: 167 mls/hr Levofloxacin/Dextrose 750 mg/ (Premix) 150 mls @ 100 mls/hr IV Q48H [facility] Last Admin: 09/20/17 06:18 Dose: 100 mls/hr Potassium Chloride/Sodium Chloride (Normal Saline With 20 Meq Kcl) 1,000 mls @ 100 mls/hr IV Q10H [facility] Last Admin: 09/18/17 02:14 Dose: 100 mls/hr Vancomycin HCl 1,000 mg/ (Sodium Chloride) 250 mls @ 250 mls/hr IV Q24H [facility] Last Admin: 09/18/17 20:05 Dose: 250 mls/hr Sodium Chloride (Normal Saline) 250 mls @ 100 mls/hr IV ASDIRECTED [facility] Last Admin: 09/20/17 06:19 Dose: 100 mls/hr Ketorolac Tromethamine (Toradol) 15 mg IVPUSH ONETIME ONE Stop: 09/16/17 20:05 Last Admin: 09/16/17 20:39 Dose: 15 mg Losartan Potassium (Cozaar) 25 mg PO DAILY [facility] Last Admin: 09/17/17 09:33 Dose: 25 mg Losartan Potassium (Cozaar) 50 mg PO DAILY [facility] Last Admin: 09/19/17 08:30 Dose: 50 mg Losartan Potassium (Cozaar) 50 mg PO ONETIME ONE Stop: 09/18/17 15:37 Last Admin: 09/18/17 16:02 Dose: 50 mg Losartan Potassium (Cozaar) 50 mg PO ONETIME ONE Stop: 09/19/17 10:46 Last Admin: 09/19/17 11:21 Dose: 50 mg Mometasone Furoate/Formoterol Fumar (Dulera 200-5 Mcg) 2 puff IH BID PRN PRN Reason: BREATHING ISSUES Tramadol HCl (Ultram) 50 mg PO Q6H PRN PRN Reason: Pain Tramadol HCl (Ultram) 50 mg PO Q12H PRN PRN Reason: Pain Last Admin: 09/18/17 06:37 Dose: 50 mg Tramadol HCl (Ultram) 50 mg PO Q6H PRN PRN Reason: PAIN Vancomycin HCl (Vancomycin) Confirm Administered Dose 1,000 mg .ROUTE .STK-MED ONE Stop: 09/16/17 20:59 Last Admin: 09/16/17 21:08 Dose: Not Given Vancomycin HCl (Pharmacy To Dose - Vancomycin) 1 dose .XX ASDIRECTED YOHANNES *Q Meaningful Use (DIS) - VTE *Q VTE Criteria *Q: - Stroke *Q Stroke Criteria *Q: - AMI *Q AMI Criteria *Q:
[2017-09-21] MEDS ORDERED: FLU Vacc QS 2017-18 (36mos UP)/PF 60 MCG/0.5 ML Syringe IM ONE (09:25)
[2017-09-22] MEDS ORDERED: Levofloxacin 500 MG Tab PO SCH (06:00)
== END 2017-09-21 11:35 | disposition home health service (06) | DRG 194 ==
LOC: FB.ED 15:42 → FB.MS 18:49
PROVIDERS: ADMIT Emergency Medicine; ATTEND Family Medicine
DX: J18.9 Pneumonia, unspecified organism (principal); I69.954 Hemiplegia and hemiparesis following unspecified cerebrovascular disease affecting left non-dominant side; E86.0 Dehydration; I10 Essential (primary) hypertension; E03.9 Hypothyroidism, unspecified; Z87.891 Personal history of nicotine dependence; R53.1 Weakness; R41.82 Altered mental status, unspecified; R50.9 Fever, unspecified; Z23 Encounter for immunization; E78.00 Pure hypercholesterolemia, unspecified; J45.909 Unspecified asthma, uncomplicated; M54.9 Dorsalgia, unspecified; G89.29 Other chronic pain; F32.9 Major depressive disorder, single episode, unspecified; Z51.5 Encounter for palliative care; Z88.1 Allergy status to other antibiotic agents; R07.81 Pleurodynia
CPT/HCPCS: 36415; 70450; 71010; 80048; 82550; 83605; 83880; 85025; 87040 ×2; 93005 ×2; 96365; 99285; J1956; J7040; 36410; 71020; 71101-LT; 80053; 81001; 84484; 87070; 87205; 87804; 90686; A9270-GY; G0008; J1885; J3370; J3480; J7050; J7120

== ENCOUNTER 2017-12-16 11:44 | Inpatient (IN) | payer MEDICARE ==
[2017-12-16] MEDS ORDERED: Albuterol 0.083% 2.5 MG/3 ML Neb Soln NEB PRN (14:21)
[2017-12-16] MEDS ORDERED: Docusate Sodium 100 MG Cap PO PRN (14:21)
[2017-12-16] MEDS ORDERED: Acetaminophen 325 MG Tab PO PRN (14:21)
[2017-12-16] MEDS ORDERED: Iopamidol 755 Mg/ML 75 ML Bottle IV ONE (14:52)
[2017-12-16] MEDS: Sodium Chloride 0.9% 10 ML Syringe FLUSH PRN (15:10)
--- NOTE | 2017-12-16 15:27 | PCM.HP ---
H&P History of Present Illness - General Date of Service: 12/16/17 Admit Problem/Dx: Admission Diagnosis/Problem Admission Diagnosis/Problem Lower respiratory tract infection Source of Information: Patient, Family, Old Records, Provider - History of Present Illness Initial Comments - Free Text/Narative: Patient is an 87-year-old female who was hospitalized in August 2017 with confusion, weakness, nausea, vomiting, diarrhea. On chest x-ray she was found to have a probable right upper lobe infiltrate and was treated with Levaquin. Sputum cultures grew yeast otherwise were negative. Since that time she's continued to have intermittent episodes of fevers, chills, sweats, and body aches. She hasn't really recovered completely. There are periods of time when she feels pretty well and other times where she feels quite ill. She's had 3 other episodes of treatment as an outpatient with oral antibiotics. By report vancomycin was used in hospital and Ceftin and Levaquin are the antibiotics she was treated with as an outpatient. She's had a number of tests done with each visit including chest x-ray, sedimentation rate, urinalysis, influenza and a proBNP which were all negative. 10 days ago she was treated with 500 mg Levaquin by mouth daily for persistent cough, body aches and fevers. She seemed to improve for the short term but now is much worse again. 2 days ago she started to have fevers, chills, and a dry nonproductive cough. She has not really been short of breath. Her biggest complaint is severe body aches both the joint and muscle. She just hurts all over. She feels stuffy and congested with a runny nose. No sore throat. Cough is dry and nonproductive. She presented to the clinic today and was found to have negative influenza, negative chest x-ray, urine positive only for ketones, and a sedimentation rate of 82. White count was normal with no left shift. Hemoglobin and platelets were normal. Electrolytes were normal. Renal function showed a BUN of 16 with a creatinine of 1.3 and a blood sugar nonfasting of 130. At that time she had a temperature of 101.0 Fahrenheit, heart rate of 110, normal blood pressure and normal respiratory rate. I was asked to admit the patient for further evaluation and treatment of possible occult infection or persistent pneumonia. Past medical history: #1 hypertension #2 chronic kidney disease stage III #3 hyperlipidemia #4 history of cerebrovascular disease with previous stroke #5 peripheral vascular disease #6 hypothyroidism #7 history of MRSA #8 compression fracture history #9 carotid artery blockage without stroke. #10 hospitalization in June 2017 for altered mental status thought to be secondary to tramadol. Social history: Patient lives alone, , lives in an apartment in [place], [place]. She has 4 children. 3 are healthy and one from COPD complications a few years ago. She is a nonsmoker. She has a glass of wine about once a month. Family history: Mother at 100 years old of old age complications. Father of lung cancer. madiha shoulders Pain Score (Numeric/FACES): 8 - Related Data Allergies/Adverse Reactions: Allergies Allergy/AdvReac Type Severity Reaction Status Date / Time amoxicillin [Amoxicillin] Allergy Nausea and Verified 12/16/17 12:07 Vomiting Home Medications: Home Meds Cholecalciferol (Vitamin D3) [Vitamin D3] 1,000 units PO DAILY 07/07/17 [History ] Lutein 20 mg PO DAILY 07/07/17 [History] Simvastatin [Zocor] 20 mg PO BEDTIME 07/07/17 [History] Acetaminophen [Tylenol Arthritis Pain] 1,300 mg PO BID tab.er 07/08/17 [Rx] Clopidogrel [Plavix] 75 mg PO DAILY tablet 07/08/17 [Rx] Gabapentin [Neurontin] 600 mg PO BID tablet 07/08/17 [Rx] Levothyroxine [Synthroid] 88 mcg PO 0600 #90 tablet 07/08/17 [Rx] Melatonin 3 mg PO BEDTIME tablet 07/08/17 [Rx] Metoprolol Tartrate [Lopressor] 25 mg PO BID tablet 07/08/17 [Rx] Bifidobacterium Infantis [Align] 4 mg PO DAILY 09/17/17 [History] Calcium Phosphate Trib/Vit D3 [Calcium + Vitamin D3 Gummies] 2 tab CHEW DAILY [History] Codeine Phosphate/Guaifenesin [Guaifen-Codeine 100-10 mg/5 ml] 5 ml PO BID PRN 12/16/17 [History] Furosemide 20 mg PO DAILY 12/16/17 [History] Levofloxacin [Levaquin] 500 mg PO DAILY 12/16/17 [History] Losartan [Cozaar] 50 mg PO DAILY 12/16/17 [History] Mirtazapine [Remeron] 15 mg PO BEDTIME 12/16/17 [History] Past Medical History HEENT History: Reports: Cataract Cardiovascular History: Reports: High Cholesterol, Hypertension, Syncope Respiratory History: Reports: Asthma Other Respiratory History: L sided endarterectomy Gastrointestinal History: Reports: Cholelithiasis, GERD, Hemorrhoids, Irritable Bowel Syndrome Other Gastrointestinal History: GERD is better Genitourinary History: Reports: Urinary Incontinence [employer] History: Reports: , Other (See Below) Other OB/BYN History: hysterectomy ovaries removed Musculoskeletal History: Reports: Back Pain, Chronic, Other (See Below) Other Musculoskeletal History: chronic problem with L foot, has had right shoulder and left knee pain since falling a month ago. 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 Psychiatric History: Reports: Depression Endocrine/Metabolic History: Reports: Hypothyroidism Other Endocrine/Metabolic History: takes synthroid Hematologic History: Reports: Other (See Below) Other Hematologic History: on plavix for cholesterol Other Oncologic History: lumps removed no CA Dermatologic History: Reports: Cellulitis - Infectious Disease History Infectious Disease History: Reports: Chicken Pox, Influenza, Measles, Pertussis (Whooping Cough), Rubella - Past Surgical History HEENT Surgical History: Reports: Cataract Surgery Cardiovascular Surgical History: Reports: Carotid Endarterectomy, Other (See Below) Respiratory Surgical History: Reports: None GI Surgical History: Reports: None Female Surgical History: Reports: Breast Biopsy, Hysterectomy Social & Family History - Family History Family Medical History: Noncontributory HEENT: Reports: None Cardiac: Reports: Heart Failure, High Cholesterol, Hypertension, Other (See Below) Other Cardiac Family History: daughter with a prolapsed mitral valve Respiratory: Reports: Asthma, COPD GI: Reports: None OBGYN: Reports: , Recurrent Spontaneous Musculoskeletal: Reports: Arthritis, Back pain, Chronic Neurological: Reports: Parkinson's Psychiatric: Reports: None Endocrine/Metabolic: Reports: Hyperthyroidism Hematologic: Reports: None Oncologic: Reports: Lung, Skin - Tobacco Use Smoking Status *Q: Never Smoker Years of Tobacco use: 20 Used Tobacco, but Quit: Yes Month Tobacco Last Used: June Second Hand Smoke Exposure: No - Caffeine Use Caffeine Use: Reports: None Other Caffeine Use: mostly drinks decaf coffee - Alcohol Use Days Per Week of Alcohol Use: 1 Number of Drinks Per Day: 1 Total Drinks Per Week: 1 - Recreational Drug Use Recreational Drug Use: No H&P Review of Systems - Review of Systems: Review Of Systems: See Below General: Reports: Fever, Chills, Weakness, Fatigue, Night Sweats, Diaphoresis, Decreased Appetite HEENT: Reports: Headaches (Posterior occiput) Pulmonary: Reports: Wheezing, Cough (dry without sputum. Mild. ) Cardiovascular: Reports: No Symptoms Gastrointestinal: Reports: Abdominal Pain, Diarrhea (none today.), Decreased Appetite, Nausea Genitourinary: Reports: No Symptoms Musculoskeletal: Reports: Joint Pain (aches all over. ), Muscle Pain Exam - Exam Exam: See Below - Vital Signs Vital Signs: Last Vital Signs Temp 36.7 C 12/16/17 12:03 Pulse 104 H 12/16/17 12:03 Resp 16 12/16/17 12:03 BP 145/74 H 12/16/17 12:03 Pulse Ox 98 12/16/17 12:03 Weight: 73.164 kg - Exam General: Alert, Oriented, Cooperative HEENT: Conjunctiva Clear, Mucosa Moist & [place], Posterior Pharynx Clear, TMs Clear Neck: Supple (No LA.) Lungs: Wheezing (very fine occasional expiratory wheezing. ) Cardiovascular: Regular Rate, Regular Rhythm GI/Abdominal Exam: Normal Bowel Sounds, Soft (Diffusely tender without guarding or rigidity. ) (Female) Exam: Normal External Exam (No sores on the labia. The bump that the patient was concerned about is nothing more than a small cyst. She's got no redness, no tenderness, no inflammation on the external genitalia.) Back Exam: Normal Inspection Extremities: Normal Inspection, No Pedal Edema (No splinter hemorrhages, no bruising or swelling. 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 ) - Patient Data Lab Results Last 24 hrs: Negative influenza, negative chest x-ray, urine positive for ketones otherwise negative, sedimentation rate 82. These were at the clinic. Also at [facility] today, white count 9.6 with no left shift, hemoglobin 12.2, platelets 163 , sodium 139, potassium 4.2, chloride 100, carbon dioxide 26, BUN 16, creatinine 1.3, glucose 130. Temp there was 101.0. *Q Meaningful Use (ADM) - VTE *Q VTE Criteria *Q: - Stroke *Q Stroke Criteria *Q: - AMI *Q AMI Criteria *Q: - Problem List (1) Fever SNOMED Code(s): 500108453 ICD Code: R50.9 - FEVER, UNSPECIFIED Status: Acute Current Visit: No Problem Details: Etiology is unclear. This has been an intermittent problem since August. The patient has had a number of courses of antibiotic therapy which may or may not have resolved her symptoms. Not really associated with true respiratory symptoms but more with body aches, myalgias, fevers, and this dry cough. I'm going to hold off on starting antibiotics at this time until after we get blood cultures. Also would like to get a CT scan of the chest to rule out occult abscess, empyema, infectious process, or malignancy. Will order sputum culture, blood culture with fever greater than 100F, tickborne illness panel, CK, and if she has diarrhea would get stool studies all she is not having any loose stools today. The differential is large for this patient. This could be infectious such as an indolent anaerobic-type infection, this could be malignant, could be an autoimmune presentation although unlikely at this age, and before we give more antibiotic therapy I'd like to do further testing. The patient has significant issues with IV access and before we give venal caustic antibiotics like vancomycin or Zosyn I'd like to get a PICC line placed. With multiple tries anesthesia had to be called in order to get an IV large enough to even give IV contrast. (2) CKD (chronic kidney disease) stage 3, GFR 30-59 ml/min SNOMED Code(s): 740650347 ICD Code: N18.3 - CHRONIC KIDNEY DISEASE, STAGE 3 (MODERATE) Status: Acute Current Visit: Yes Problem Details: Creatinine 1.3. Patient receives IV fluids before going to CT with contrast. Would hold off on any renal toxic or caustic antibiotics until the patient has a PICC line in place so we can make sure we have definitive IV access unless of course her clinical condition deteriorates mandating immediate start on antibiotic therapy. (3) Cerebrovascular disease SNOMED Code(s): 94341681 ICD Code: I67.9 - CEREBROVASCULAR DISEASE, UNSPECIFIED Status: Acute Current Visit: Yes Problem Details: Continue outpatient Plavix. Monitor. (4) Peripheral vascular disease SNOMED Code(s): 859122864 ICD Code: I73.9 - PERIPHERAL VASCULAR DISEASE, UNSPECIFIED Status: Acute Current Visit: Yes Problem Details: Monitor. No evidence of sores or ulcerations on the feet at this time. (5) Hypothyroidism SNOMED Code(s): 23512638 ICD Code: E03.9 - HYPOTHYROIDISM, UNSPECIFIED Status: Acute Current Visit : Yes Problem Details: Continue home medication. (6) History of MRSA infection SNOMED Code(s): 731794380 ICD Code: Z86.14 - PERSONAL HISTORY OF METHICILLIN RESIS STAPH INFECTION Status: Acute Current Visit: Yes Problem Details: This was apparently a vaginal cyst infection. Intradermal past. Patient is at higher risk for MRSA infection. (7) HTN, Benign essential hypertension SNOMED Code(s): 3376635 ICD Code: I10 - ESSENTIAL (PRIMARY) HYPERTENSION Status: Chronic Current Visit: No Problem Details: Stable blood pressure, I would prefer to run a little on the high side at this time, monitor. (8) DVT prophylaxis SNOMED Code(s): 697699619 ICD Code: [id number] - Status: Acute Current Visit: Yes Problem Details: Lovenox. Problem List Initiated/Reviewed/Updated: Yes Orders Last 24hrs: Active Orders 24 hr Category Date Time Status Patient Status [ADT] Routine ADT 12/16/17 14:22 Ordered Communication Order [RC] BID Care 12/16/17 15:08 Ordered Intake and Output [RC] QSHIFT Care 12/16/17 14:23 Ordered Oxygen Therapy [RC] PRN Care 12/16/17 14:22 Ordered RT Aerosol Therapy [RC] ASDIRECTED Care 12/16/17 14:26 Ordered Up With Assistance [RC] ASDIRECTED Care 12/16/17 14:21 Ordered VTE/DVT Education [RC] Per Unit Routine Care 12/16/17 14:22 Ordered Vital Signs [RC] Q4H Care 12/16/17 14:22 Ordered OT Evaluation and Treatment [CONS] Routine Cons 12/16/17 14:21 Ordered PT Evaluation and Treatment [CONS] Routine Cons 12/16/17 14:21 Ordered Sodium Restricted Diet [DIET] Diet 12/16/17 Dinner Active Chest w Cont [CT] Routine Exams 12/16/17 14:28 Ordered BABESIA MICROTI IGG AND IGM [REF] Routine Lab 12/16/17 15:12 Ordered CBC WITH AUTO DIFF [HEME] AM Lab 12/17/17 05:11 Ordered COMPREHENSIVE METABOLIC PN,CMP [CHEM] AM Lab 12/17/17 05:11 Ordered CULTURE BLOOD [BC] Stat Lab 12/16/17 14:21 Ordered CULTURE SPUTUM + SMEAR [RM] Routine Lab 12/16/17 14:28 Uncollected LYME AB SCREEN RFLX [REF] Routine Lab 12/16/17 15:12 Ordered RESPIRATORY SYNCYTIAL VIRUS AG [RM] Routine Lab 12/16/17 15:12 Uncollected Acetaminophen [Tylenol] Med 12/16/17 14:21 Ordered 650 mg PO Q4H PRN Albuterol [Proventil Neb Soln] Med 12/16/17 14:21 Ordered 2.5 mg NEB Q2H PRN Docusate Sodium [Colace] Med 12/16/17 14:21 Ordered 100 mg PO BID PRN Enoxaparin [Lovenox] Med 12/16/17 14:30 Ordered 30 mg SUBCUT Q24H Sodium Chloride 0.9% @ 125 MLS/HR (1000ml) Med 12/16/17 14:30 Ordered Sodium Chloride 0.9% [Normal Saline] 1,000 ml IV ASDIRECTED Sodium Chloride 0.9% [Saline Flush] Med 12/16/17 14:21 Ordered 10 ml FLUSH ASDIRECTED PRN Peripheral IV Insertion Adult [OM.PC] Routine Oth 12/16/17 14:21 Ordered Sequential Compression Device [OM.PC] Per Unit Routine Oth 12/16/17 14:23 Ordered Code Status [Resuscitation Status] Routine Resus Stat 12/16/17 15:21 Ordered Medication Orders Acetaminophen (Tylenol) 650 mg PO Q4H PRN PRN Reason: Pain (Mild 1-3)/fever Albuterol (Proventil Neb Soln) 2.5 mg NEB Q2H PRN PRN Reason: Shortness Of Breath/wheezing Docusate Sodium (Colace) 100 mg PO BID PRN PRN Reason: Constipation Enoxaparin Sodium (Lovenox) 30 mg SUBCUT Q24H YOHANNES Sodium Chloride (Normal Saline) 1,000 mls @ 125 mls/hr IV ASDIRECTED YOHANNES Sodium Chloride (Saline Flush) 10 ml FLUSH ASDIRECTED PRN PRN Reason: Keep Vein Open Assessment/Plan Comment:: Discussed CODE STATUS at length with the patient and her daughter. The patient, if she got so ill that she in spite of aggressive medical care, would not want resuscitation done. She would want intubation if it was needed to be life- saving. She would not want to be on mechanical ventilation where she would need a surgical trach. Thus patient is a DNR/yes intubation.
[2017-12-16] MEDS: Enoxaparin 30 MG/0.3 ML Syringe SUBCUT SCH (15:46)
[2017-12-16] MEDS ORDERED: Gabapentin 300 MG Cap ONE (21:17)
[2017-12-16] MEDS: Mirtazapine 15 MG Tab PO SCH (21:23)
[2017-12-16] MEDS: Metoprolol Tartrate 25 MG Tab PO SCH (21:23)
[2017-12-16] MEDS: Melatonin 3 MG Tab PO SCH (21:24)
[2017-12-16] MEDS: Acetaminophen 650 MG Tab.ER PO SCH (21:24)
[2017-12-16] MEDS: Simvastatin 20 MG Tab PO SCH (21:24)
[2017-12-16] MEDS: Gabapentin 600 MG Tab PO SCH (22:18)
[2017-12-16] MEDS: Sodium Chloride 0.9% 1,000 ML IV SCH (23:52)
[2017-12-17] MEDS: Levothyroxine 88 MCG Tab PO SCH (05:52)
--- NOTE | 2017-12-17 08:59 | CT ---
INDICATION: Cough, persistent infiltrate. COMPUTERIZED TOMOGRAPHY OF THE CHEST WITH CONTRAST: Spiral 2.5-mm axial sections were obtained through the chest with 70 mL Isovue-370 at 2.5 mL per second, with sagittal and coronal reconstructions, 12/16/2017, and were compared with a chest x-ray from 09/18/2017. Total Exam DLP = 318.59 mGy-cm. A definite active infiltrate or effusion was not identified. There is some very minimal scarring noted at the right lung base and left lung base to a lesser extent. This is seen in the right lower lobe, middle lobe, and left lower lobe. No mediastinal mass lesions were identified. Mediastinal lymphadenopathy is minimal and nonspecific. Calcifications are noted in the aorta and at the mitral valve. Common bile duct appeared normal in caliber. Degenerative changes and some disk disease are noted in the mid to lower thoracic spine, with a compression fracture noted at L1, most likely old. Bridging hyperostotic changes are noted mostly in the mid thoracic spine, with a few degenerative disks noted, with vacuum disk phenomena in the mid and lower thoracic spine. IMPRESSION: 1. No acute abnormalities noted in the chest - no pneumonia or pleural effusion or masses seen. 2. ASD. 3. Degenerative changes and some disk disease are noted in the mid to lower thoracic spine, with a compression fracture noted at L1, most likely old. Bridging hyperostotic changes are noted mostly in the mid thoracic spine, with a few degenerative disks noted, with vacuum disk phenomena in the mid and lower thoracic spine. Report was called to Dr. Sravani Hauser at 1804 hours, 12/16/2017. [facility]ITALTrini
[2017-12-17] MEDS: Metoprolol Tartrate 25 MG Tab PO SCH ×2 (09:32→21:32)
[2017-12-17] MEDS: Acetaminophen 650 MG Tab.ER PO SCH ×2 (09:33→21:33)
[2017-12-17] MEDS: Gabapentin 600 MG Tab PO SCH ×2 (09:33→21:32)
[2017-12-17] MEDS: Sodium Chloride 0.9% 10 ML Syringe FLUSH SCH (09:33)
[2017-12-17] MEDS: Sodium Chloride 0.9% 10 ML Syringe FLUSH PRN (10:24)
--- NOTE | 2017-12-17 12:37 | PREOP ---
ADMISSION DATE: 12/16/2017 REASON FOR VISIT: Weakness, fever. HISTORY OF PRESENT ILLNESS: This is an 87-year-old female, admitted from [facility] because of a fever. So far, no tests have been revealing for the source of infection, but she has been is afebrile overnight. Her main complaint is extreme weakness today. PAST MEDICAL HISTORY: Pneumonia, hypertension, hyperlipidemia, and hypothyroidism. MEDICATIONS: Reviewed. Please see the nurse's notes and the electronic record. PHYSICAL EXAMINATION: VITAL SIGNS: Her blood pressure is 142/64. She is afebrile. Pulse is 80. Oxygenation 98% on room air. ENT: Negative. NECK: Supple. CHEST: Clear. CARDIOVASCULAR: Normal. ABDOMEN: Soft. MENTAL STATUS: Alert. LABORATORY DATA: White count is 5.3 and hemoglobin 10.3. Electrolytes are normal. IMAGING: Chest CT was negative. IMPRESSION: 1. Acute febrile illness. 2. History of pneumonia. 3. Generalized weakness. PLAN: 1. Obtain a consultation with Physical and Occupational Therapy. 2. Treat for influenza with Tamiflu because of body aches and fever, even though the test was negative. 3. Repeat some labs in the morning with the hope of sending her home tomorrow. Today, we will continue IV fluid resuscitation. /[id number] JEAN/RODNEYL
[2017-12-17] MEDS: Oseltamivir 30 MG Cap PO SCH ×2 (13:50→21:33)
[2017-12-17] MEDS: Enoxaparin 30 MG/0.3 ML Syringe SUBCUT SCH (13:52)
[2017-12-17] MEDS: Sodium Chloride 0.9% 1,000 ML IV SCH (16:28)
[2017-12-17] MEDS ORDERED: ClonazePAM 0.5 MG Tab PO SCH (21:00)
[2017-12-17] MEDS ORDERED: traZODone 50 MG Tab PO SCH (21:00)
[2017-12-17] MEDS: Melatonin 3 MG Tab PO SCH (21:32)
[2017-12-17] MEDS: Simvastatin 20 MG Tab PO SCH (21:33)
[2017-12-17] MEDS: Mirtazapine 15 MG Tab PO SCH (21:33)
[2017-12-18] MEDS: Levothyroxine 88 MCG Tab PO SCH (05:39)
[2017-12-18] MEDS: Sodium Chloride 0.9% 10 ML Syringe FLUSH PRN (06:54)
[2017-12-18] MEDS: Metoprolol Tartrate 25 MG Tab PO SCH (08:38)
[2017-12-18] MEDS: Gabapentin 600 MG Tab PO SCH (08:39)
[2017-12-18] MEDS: Oseltamivir 30 MG Cap PO SCH (08:39)
[2017-12-18] MEDS: Sodium Chloride 0.9% 10 ML Syringe FLUSH SCH (08:39)
[2017-12-18] MEDS: Acetaminophen 650 MG Tab.ER PO SCH (08:39)
[2017-12-18 08:40] VITALS: BP 160/76
--- NOTE | 2017-12-18 08:59 | US ---
INDICATION: PICC line access guidance. ULTRASONIC GUIDE FOR VASCULAR ACCESS: Multiple ultrasonic images were obtained with ultrasonic guidance utilized to evaluate placement of PICC line access to the mid basilic vein on the left. PICC line placement apparently was successful. MTDD
[2017-12-18] MEDS ORDERED: Cholecalciferol (Vitamin D3) 1,000 Unit Tab PO SCH (09:00)
[2017-12-18] MEDS ORDERED: Polyethylene Glycol 3350 Powder 17 GM Packet PO ONE (09:15)
--- NOTE | 2017-12-18 09:44 | CR ---
INDICATION: Follow-up post PICC line placement from the left arm. Difficult access, for IV antibiotics. X-RAY PICC LINE INSERTION FOLLOW-UP: An AP portable upright view of the chest was obtained 12/17/2017 and compared with 12/16/2017, revealing interval placement of a PICC line from the left arm. Its tip lies at the superior vena cava at the level of the aortic arch. It could be advanced several centimeters for better positioning, but should be adequate in that position. No other changes noted compared with the previous study - no definite active infiltrate or effusion was seen. IMPRESSION: PICC line insertion with tip at the level of the aortic arch near the midline. MTDD
[2017-12-18] MEDS ORDERED: Saccharomyces Boulardii (Probiotic) 250 MG Cap PO SCH (09:45)
[2017-12-18] MEDS ORDERED: Calcium Carbonate/Vitamin D3 1250 MG-200 Unit Tab PO SCH (09:45)
[2017-12-18] MEDS ORDERED: Losartan 25 MG Tab PO SCH (10:00)
[2017-12-18] MEDS ORDERED: Furosemide 20 MG Tab PO SCH (10:00)
[2017-12-18] MEDS ORDERED: Furosemide 40 MG Tab PO SCH (10:00)
[2017-12-18] MEDS ORDERED: Clopidogrel 75 MG Tab PO SCH (10:00)
--- NOTE | 2017-12-18 10:46 | PN ---
DATE SEEN: 12/18/2017 REASON FOR VISIT: Weakness. HISTORY OF PRESENT ILLNESS: An 87-year-old female admitted two days ago because of weakness, fever, and initially diarrhea. Symptoms have improved with the exception of weakness. She feels generally wiped out and weak, unable to ambulate independently. REVIEW OF SYSTEMS: No chest pain. She complains of constipation. PAST MEDICAL HISTORY: Hypertension, depression. MEDICATIONS: Reviewed. PHYSICAL EXAMINATION: GENERAL: She is not in distress. VITAL SIGNS: Blood pressure is 160/76 and she is afebrile. ENT: Negative. CHEST: Clear. CARDIOVASCULAR: Normal. ABDOMEN: Distended, tympanic to percussion. EXTREMITIES: No edema. FINAL IMPRESSION: 1. Acute febrile illness. 2. Generalized weakness and deconditioning. 3. Hypertension. 4. Depression. 5. Constipation. PLAN: 1. MiraLAX x1 dose. 2. Restart losartan. 3. Physical and Occupation Therapy will continue to work with her. I started Tamiflu empirically, but we will discharge her to the swing bed today for strengthening. /[id number] JEAN/TAD
--- NOTE | 2017-12-18 12:04 | DISCH ---
DISCHARGE DATE: 12/18/2017 REASON FOR ADMISSION: 1. Acute febrile illness. 2. Diarrhea. 3. Hypertension. 4. Depression. 5. History of hypothyroidism. 6. History of stroke. 7. Chronic kidney disease. DISCHARGE DIAGNOSES: 1. Acute febrile illness of unknown reason, possibly influenza. 2. Constipation. 3. General weakness and deconditioning. 4. Hypertension. 5. Chronic medical conditions including history of MRSA infection, hypothyroidism, peripheral vascular disease, and cerebrovascular disease. CONSULTATIONS: None. PROCEDURES: PICC line placement. BRIEF HISTORY: This is an 87-year-old female who was admitted for weakness, fever, body aches, and diarrhea. Initially, had some upper respiratory symptoms as well that were treated with Levaquin as an outpatient. However, her initial workup here in the hospital, including influenza, RSV, chest CT, CBC, basic profile, UA were all negative. She was rehydrated with IV fluids and started on Tamiflu empirically. Labs were sent out including urine antigen for Legionella and pneumonia and Lyme disease, which are still pending. She was still weak, but did not have any more need for any IV fluids or IV medications; therefore, we discharged her to swing bed for physical and occupational therapy and rehab. DISCHARGE MEDICATIONS: Tamiflu 75 mg p.o. b.i.d. She will also continue the home regular medications. I did start her on Klonopin 0.25 mg at night to help with sleep. I spent 35 minutes in the discharge of the patient. /[id number] JEAN/TAD
== END 2017-12-18 13:00 | disposition swing bed (61) | DRG 153 ==
LOC: FB.MS 11:57
PROVIDERS: ADMIT Family Medicine; ATTEND Family Medicine
PROC: 05HC33Z Insertion of Infusion Device into Left Basilic Vein, Percutaneous Approach (ICD-10-PCS; principal; 2017-12-17)
PROC: B54NZZA Ultrasonography of Left Upper Extremity Veins, Guidance (ICD-10-PCS; 2017-12-17)
DX: J11.1 Influenza due to unidentified influenza virus with other respiratory manifestations (principal); I69.954 Hemiplegia and hemiparesis following unspecified cerebrovascular disease affecting left non-dominant side; R50.9 Fever, unspecified; R53.1 Weakness; I12.9 Hypertensive chronic kidney disease with stage 1 through stage 4 chronic kidney disease, or unspecified chronic kidney disease; N18.3 Chronic kidney disease, stage 3 (moderate); Z87.891 Personal history of nicotine dependence; E78.5 Hyperlipidemia, unspecified; I73.9 Peripheral vascular disease, unspecified; Z86.14 Personal history of Methicillin resistant Staphylococcus aureus infection; E03.9 Hypothyroidism, unspecified; M54.9 Dorsalgia, unspecified; G89.29 Other chronic pain; F32.9 Major depressive disorder, single episode, unspecified; Z66 Do not resuscitate; K59.00 Constipation, unspecified; Z88.1 Allergy status to other antibiotic agents
CPT/HCPCS: 36415; 36569; 71260; 76937; 80053; 82550; 84145; 85025; 86618; 86666; 86753; 87040; 87449; 87807; 94150; 97116-GP; 97161-GP; 97166-GO; 97530-GP; A9270-GY; J1650; J7040; J7050; Q9967

== ENCOUNTER 2017-12-18 13:00 | Inpatient (IN) | payer MEDICARE ==
[2017-12-18] MEDS ORDERED: ClonazePAM 0.5 MG Tab PO PRN (13:18)
[2017-12-18] MEDS ORDERED: Codeine/guaiFENesin 100-10 MG/5 ML Syrup 5 ML Cup PO PRN (13:18)
[2017-12-18] MEDS ORDERED: Losartan 25 MG Tab PO ONE (14:15)
[2017-12-18] MEDS: Mirtazapine 15 MG Tab PO SCH (20:18)
[2017-12-18] MEDS: Metoprolol Tartrate 25 MG Tab PO SCH (20:18)
[2017-12-18] MEDS: Gabapentin 600 MG Tab PO SCH (20:18)
[2017-12-18] MEDS: Acetaminophen 650 MG Tab.ER PO SCH (20:19)
[2017-12-18] MEDS: Oseltamivir 30 MG Cap PO SCH (20:19)
[2017-12-18] MEDS: Melatonin 3 MG Tab PO SCH (20:19)
[2017-12-19] MEDS: Levothyroxine 88 MCG Tab PO SCH (06:25)
[2017-12-19] MEDS: Calcium Carbonate/Vitamin D3 1250 MG-200 Unit Tab PO SCH (08:42)
[2017-12-19] MEDS: Furosemide 20 MG Tab PO SCH (08:43)
[2017-12-19] MEDS: Metoprolol Tartrate 25 MG Tab PO SCH ×2 (08:43→21:11)
[2017-12-19] MEDS: Losartan 50 MG Tab PO SCH (08:43)
[2017-12-19] MEDS: Saccharomyces Boulardii (Probiotic) 250 MG Cap PO SCH (08:43)
[2017-12-19] MEDS: Oseltamivir 30 MG Cap PO SCH ×2 (08:44→21:12)
[2017-12-19] MEDS: Gabapentin 600 MG Tab PO SCH ×2 (08:44→21:11)
[2017-12-19] MEDS: Clopidogrel 75 MG Tab PO SCH (08:44)
[2017-12-19] MEDS: Cholecalciferol (Vitamin D3) 1,000 Unit Tab PO SCH (08:44)
[2017-12-19] MEDS: Acetaminophen 650 MG Tab.ER PO SCH ×2 (08:44→21:12)
--- NOTE | 2017-12-19 09:22 | PCM.HP ---
H&P History of Present Illness - General Date of Service: 12/19/17 Admit Problem/Dx: Admission Diagnosis/Problem Admission Diagnosis/Problem Weakness Source of Information: Patient History Limitations: Reports: No Limitations - History of Present Illness Initial Comments - Free Text/Narative: Patient was admitted in acute care for acute febrile illness a physical deconditioning weakness. No source of infection was found despite multiple tests and workup. She was noted to be very weak and able to go home alone. She' s been admitted to swing bed for strengthening and rehabilitation. She has also been noted to be quite depressed. denies when asked Pain Score (Numeric/FACES): 0 - Related Data Allergies/Adverse Reactions: Allergies Allergy/AdvReac Type Severity Reaction Status Date / Time amoxicillin [Amoxicillin] Allergy Nausea and Verified 12/16/17 12:07 Vomiting Home Medications: Home Meds Cholecalciferol (Vitamin D3) [Vitamin D3] 1,000 units PO DAILY 07/07/17 [History ] Lutein 20 mg PO DAILY 07/07/17 [History] Acetaminophen [Tylenol Arthritis Pain] 1,300 mg PO BID tab.er 07/08/17 [Rx] Clopidogrel [Plavix] 75 mg PO DAILY tablet 07/08/17 [Rx] Gabapentin [Neurontin] 600 mg PO BID tablet 07/08/17 [Rx] Levothyroxine [Synthroid] 88 mcg PO 0600 #90 tablet 07/08/17 [Rx] Melatonin 3 mg PO BEDTIME tablet 07/08/17 [Rx] Metoprolol Tartrate [Lopressor] 25 mg PO BID tablet 07/08/17 [Rx] Bifidobacterium Infantis [Align] 4 mg PO DAILY 09/17/17 [History] Calcium Phosphate Trib/Vit D3 [Calcium + Vitamin D3 Gummies] 2 tab CHEW DAILY [History] Codeine Phosphate/Guaifenesin [Guaifen-Codeine 100-10 mg/5 ml] 5 ml PO BID PRN 12/16/17 [History] Furosemide 20 mg PO DAILY 12/16/17 [History] Losartan [Cozaar] 50 mg PO DAILY 12/16/17 [History] Mirtazapine [Remeron] 15 mg PO BEDTIME 12/16/17 [History] ClonazePAM [KlonoPIN] 0.25 mg PO BEDTIME PRN #30 tablet 12/18/17 [Rx] Oseltamivir [Tamiflu] 30 mg PO BID #8 cap 12/18/17 [Rx] Past Medical History HEENT History: Reports: Cataract Cardiovascular History: Reports: High Cholesterol, Hypertension, Syncope Respiratory History: Reports: Asthma Other Respiratory History: L sided endarterectomy. Gastrointestinal History: Reports: Cholelithiasis, GERD, Hemorrhoids, Irritable Bowel Syndrome Other Gastrointestinal History: GERD is better Genitourinary History: Reports: Urinary Incontinence [employer] History: Reports: , Other (See Below) Other OB/BYN History: Hysterectomy ovaries removed. Musculoskeletal History: Reports: Back Pain, Chronic, Other (See Below) Other Musculoskeletal History: Chronic problem with L foot, has had right shoulder and left knee pain since falling a month ago. reflex sympathetic dystrophy. 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 Psychiatric History: Reports: Depression Endocrine/Metabolic History: Reports: Hypothyroidism Other Endocrine/Metabolic History: Takes synthroid. Hematologic History: Reports: Other (See Below) Other Hematologic History: On plavix for cholesterol. Other Oncologic History: Lumps removed, no CA. Dermatologic History: Reports: Cellulitis - Infectious Disease History Infectious Disease History: Reports: Chicken Pox, Influenza, Measles, Pertussis (Whooping Cough), Rubella - Past Surgical History HEENT Surgical History: Reports: Cataract Surgery Cardiovascular Surgical History: Reports: Carotid Endarterectomy Female Surgical History: Reports: Breast Biopsy, Hysterectomy Social & Family History - Family History Family Medical History: Noncontributory HEENT: Reports: None Cardiac: Reports: Heart Failure, High Cholesterol, Hypertension, Other (See Below) Other Cardiac Family History: daughter with a prolapsed mitral valve Respiratory: Reports: Asthma, COPD GI: Reports: None OBGYN: Reports: , Recurrent Spontaneous Musculoskeletal: Reports: Arthritis, Back pain, Chronic Neurological: Reports: Parkinson's Psychiatric: Reports: None Endocrine/Metabolic: Reports: Hyperthyroidism Hematologic: Reports: None Oncologic: Reports: Lung, Skin - Tobacco Use Smoking Status *Q: Never Smoker Years of Tobacco use: 20 Used Tobacco, but Quit: Yes Month Tobacco Last Used: June Second Hand Smoke Exposure: No - Caffeine Use Caffeine Use: Reports: None Other Caffeine Use: mostly drinks decaf coffee - Alcohol Use Days Per Week of Alcohol Use: 1 Number of Drinks Per Day: 1 Total Drinks Per Week: 1 - Recreational Drug Use Recreational Drug Use: No H&P Review of Systems - Review of Systems: Review Of Systems: ROS reveals no pertinent complaints other than HPI. Exam - Exam Exam: See Below - Vital Signs Vital Signs: Last Vital Signs Temp Pulse 71 12/19/17 08:43 Resp BP 148/77 H 12/19/17 08:43 Pulse Ox Weight: 74.979 kg - Exam General: Alert, Oriented, 4 HEENT: PERRLA, Hearing Intact, Mucosa Moist & Banks, Nares Patent, Normal Nasal Septum, Posterior Pharynx Clear, Conjunctiva Clear, EOMI, EACs Clear, TMs Clear Neck: Supple, Trachea Midline, 2 Lungs: Clear to Auscultation, Normal Respiratory Effort Cardiovascular: Regular Rate, Regular Rhythm GI/Abdominal Exam: Normal Bowel Sounds, Soft, Non-Tender, No Organomegaly, No Distention, No Abnormal Bruit, No Mass, Pelvis Stable (Female) Exam: Normal External Exam, Normal Speculum Exam, Normal Bimanual Exam Rectal (Female) Exam: Normal Exam, Normal Rectal Tone Back Exam: Normal Inspection, Full Range of Motion, NT Extremities: Normal Inspection, Normal Range of Motion, Non-Tender, No Pedal Edema, Normal Capillary Refill Skin: Warm, Dry, Intact Neurological: Cranial Nerves Intact, Reflexes Equal Bilateral Neuro Extensive - Mental Status: Alert, Oriented x3, Normal Mood/Affect, Normal Cognition Neuro Extensive - Motor, Sensory, Reflexes: CN II-XII Intact, Normal Gait, Normal Reflexes Psychiatric: Depressed *Q Meaningful Use (ADM) - VTE *Q VTE Criteria *Q: - Stroke *Q Stroke Criteria *Q: - AMI *Q AMI Criteria *Q: - Problem List (1) General weakness SNOMED Code(s): 42780113 ICD Code: R53.1 - WEAKNESS Status: Acute Current Visit: Yes (2) MDD (major depressive disorder) SNOMED Code(s): 814104887 ICD Code: F32.9 - MAJOR DEPRESSIVE DISORDER, SINGLE EPISODE, UNSPECIFIED Status: Acute Current Visit: Yes Qualifiers: Major depression recurrence: recurrent (3) Fever SNOMED Code(s): 900901586 ICD Code: R50.9 - FEVER, UNSPECIFIED Status: Acute Current Visit: No (4) Hypothyroidism SNOMED Code(s): 88960509 ICD Code: E03.9 - HYPOTHYROIDISM, UNSPECIFIED Status: Acute Current Visit : No Problem Details: Continue home medication. (5) Palliative care status SNOMED Code(s): 532169143 ICD Code: Z51.5 - ENCOUNTER FOR PALLIATIVE CARE Status: Acute Current Visit: No (6) HTN, Benign essential hypertension SNOMED Code(s): 4998445 ICD Code: I10 - ESSENTIAL (PRIMARY) HYPERTENSION Status: Chronic Current Visit: No Problem List Initiated/Reviewed/Updated: Yes Orders Last 24hrs: Active Orders 24 hr Category Date Time Status Patient Status [ADT] Routine ADT 12/18/17 13:15 Active Ambulate [RC] ASDIRECTED Care 12/18/17 13:15 Active Bedrest Bathroom Privileges [RC] ASDIRECTED Care 12/18/17 13:15 Active Height and Weight [RC] .qSun Care 12/18/17 13:15 Active Up With Assistance [RC] ASDIRECTED Care 12/18/17 13:15 Active Vital Signs [RC] 08 Care 12/18/17 13:15 Active OT Evaluation and Treatment [CONS] Routine Cons 12/18/17 13:15 Active PT Evaluation and Treatment [CONS] Routine Cons 12/18/17 13:15 Active Acetaminophen [Tylenol Arthritis Pain] Med 12/18/17 21:00 Active 1,300 mg PO BID Calcium Carbonate/Vitamin D3 [Calcium Carbonate/Vitamin Med 12/19/17 09:00 Active D 1250 MG-200 Unit] 2 tab PO DAILY Cholecalciferol (Vitamin D3) [Vitamin D3] Med 12/19/17 09:00 Active 1,000 units PO DAILY ClonazePAM [KlonoPIN] Med 12/18/17 13:18 Active 0.25 mg PO BEDTIME PRN Clopidogrel [Plavix] Med 12/19/17 09:00 Active 75 mg PO DAILY Codeine/guaiFENesin [Robitussin AC] Med 12/18/17 13:18 Active 5 ml PO BID PRN Docusate Sodium [Colace] Med 12/18/17 13:15 Active 100 mg PO BID PRN Furosemide [Lasix] Med 12/19/17 09:00 Active 20 mg PO DAILY Gabapentin [Neurontin] Med 12/18/17 21:00 Active 600 mg PO BID Levothyroxine [Synthroid] Med 12/19/17 06:00 Active 88 mcg PO 0600 Losartan [Cozaar] Med 12/19/17 09:00 Active 50 mg PO DAILY Lutein Med 12/19/17 09:00 Active 20 mg PO DAILY Melatonin Med 12/18/17 21:00 Active 3 mg PO BEDTIME Metoprolol Tartrate [Lopressor] Med 12/18/17 21:00 Active 25 mg PO BID Mirtazapine [Remeron] Med 12/18/17 21:00 Active 15 mg PO BEDTIME Oseltamivir [Tamiflu] Med 12/18/17 21:00 Active 30 mg PO BID Saccharomyces Boulardii [Florastor] Med 12/19/17 09:00 Active 250 mg PO DAILY Resuscitation Status Routine Resus Stat 12/18/17 13:15 Ordered Medication Orders Acetaminophen (Tylenol Arthritis Pain) 1,300 mg PO BID [facility] Last Admin: 12/19/17 08:44 Dose: 1,300 mg Admin: 12/18/17 20:19 Dose: 1,300 mg Calcium Carbonate (Calcium Carbonate/Vitamin D 1250 Mg-200 Unit) 2 tab PO DAILY [facility] Last Admin: 12/19/17 08:42 Dose: 2 tab Cholecalciferol (Vitamin D3) 1,000 units PO DAILY [facility] Last Admin: 12/19/17 08:44 Dose: 1,000 units Clonazepam (Klonopin) 0.25 mg PO BEDTIME PRN PRN Reason: Insomnia Clopidogrel Bisulfate (Plavix) 75 mg PO DAILY [facility] Last Admin: 12/19/17 08:44 Dose: 75 mg Docusate Sodium (Colace) 100 mg PO BID PRN PRN Reason: Constipation Furosemide (Lasix) 20 mg PO DAILY [facility] Last Admin: 12/19/17 08:43 Dose: 20 mg Gabapentin (Neurontin) 600 mg PO BID [facility] Last Admin: 12/19/17 08:44 Dose: 600 mg Admin: 12/18/17 20:18 Dose: 600 mg Guaifenesin/Codeine Phosphate (Robitussin Ac) 5 ml PO BID PRN PRN Reason: Cough Levothyroxine Sodium (Synthroid) 88 mcg PO 0600 [facility] Last Admin: 12/19/17 06:25 Dose: 88 mcg Losartan Potassium (Cozaar) 50 mg PO DAILY [facility] Last Admin: 12/19/17 08:43 Dose: 50 mg Lutein (Lutein) 20 mg PO DAILY [facility] Last Admin: 12/19/17 08:43 Dose: 20 mg Melatonin (Melatonin) 3 mg PO BEDTIME [facility] Last Admin: 12/18/17 20:19 Dose: 3 mg Metoprolol Tartrate (Lopressor) 25 mg PO BID [facility] Last Admin: 12/19/17 08:43 Dose: 25 mg Admin: 12/18/17 20:18 Dose: 25 mg Mirtazapine (Remeron) 15 mg PO BEDTIME [facility] Last Admin: 12/18/17 20:18 Dose: 15 mg Oseltamivir Phosphate (Tamiflu) 30 mg PO BID [facility] Stop: 12/21/17 21:01 Last Admin: 12/19/17 08:44 Dose: 30 mg Admin: 12/18/17 20:19 Dose: 30 mg Saccharomyces Boulardii (Florastor) 250 mg PO DAILY [facility] Last Admin: 12/19/17 08:43 Dose: 250 mg Assessment/Plan Comment:: Continue with Tamiflu for possible infectious a syndrome part. I've also consulted physical and occupational therapy. We'll continue mirtazapine for depression and add an SSRI. I anticipate a short term stay.
[2017-12-19] MEDS: Citalopram 10 MG Tab PO SCH (10:32)
[2017-12-19] MEDS: Docusate Sodium 100 MG Cap PO PRN (20:18)
[2017-12-19] MEDS: Melatonin 3 MG Tab PO SCH (21:10)
[2017-12-19] MEDS: Mirtazapine 15 MG Tab PO SCH (21:11)
[2017-12-20] MEDS: Levothyroxine 88 MCG Tab PO SCH (06:50)
[2017-12-20] MEDS: Calcium Carbonate/Vitamin D3 1250 MG-200 Unit Tab PO SCH (08:52)
[2017-12-20] MEDS: Citalopram 10 MG Tab PO SCH (08:53)
[2017-12-20] MEDS: Losartan 50 MG Tab PO SCH (08:54)
[2017-12-20] MEDS: Saccharomyces Boulardii (Probiotic) 250 MG Cap PO SCH (08:55)
[2017-12-20] MEDS: Metoprolol Tartrate 25 MG Tab PO SCH ×2 (08:56→20:52)
[2017-12-20] MEDS: Furosemide 20 MG Tab PO SCH (08:56)
[2017-12-20] MEDS: Gabapentin 600 MG Tab PO SCH ×2 (08:58→20:53)
[2017-12-20] MEDS: Clopidogrel 75 MG Tab PO SCH (08:59)
[2017-12-20] MEDS: Oseltamivir 30 MG Cap PO SCH ×2 (08:59→20:53)
[2017-12-20] MEDS: Acetaminophen 650 MG Tab.ER PO SCH ×2 (09:00→20:53)
[2017-12-20] MEDS: Cholecalciferol (Vitamin D3) 1,000 Unit Tab PO SCH (09:00)
[2017-12-20] MEDS: Melatonin 3 MG Tab PO SCH (20:53)
[2017-12-20] MEDS: Mirtazapine 15 MG Tab PO SCH (20:53)
[2017-12-20] MEDS: Docusate Sodium 100 MG Cap PO PRN (21:39)
[2017-12-21] MEDS: Levothyroxine 88 MCG Tab PO SCH (06:50)
[2017-12-21] MEDS: Citalopram 10 MG Tab PO SCH (08:54)
[2017-12-21] MEDS: Losartan 50 MG Tab PO SCH (08:55)
[2017-12-21] MEDS: Metoprolol Tartrate 25 MG Tab PO SCH ×2 (08:55→20:28)
[2017-12-21] MEDS: Saccharomyces Boulardii (Probiotic) 250 MG Cap PO SCH (08:55)
[2017-12-21] MEDS: Furosemide 20 MG Tab PO SCH (08:55)
[2017-12-21] MEDS: Clopidogrel 75 MG Tab PO SCH (08:57)
[2017-12-21] MEDS: Gabapentin 600 MG Tab PO SCH ×2 (08:57→20:28)
[2017-12-21] MEDS: Oseltamivir 30 MG Cap PO SCH ×2 (08:57→20:28)
[2017-12-21] MEDS: Calcium Carbonate/Vitamin D3 1250 MG-200 Unit Tab PO SCH (08:58)
[2017-12-21] MEDS: Acetaminophen 650 MG Tab.ER PO SCH ×2 (08:58→20:28)
[2017-12-21] MEDS: Cholecalciferol (Vitamin D3) 1,000 Unit Tab PO SCH (08:58)
[2017-12-21] MEDS: Mirtazapine 15 MG Tab PO SCH (20:28)
[2017-12-21] MEDS: Melatonin 3 MG Tab PO SCH (20:28)
[2017-12-22] MEDS: Levothyroxine 88 MCG Tab PO SCH (06:08)
[2017-12-22] MEDS: Calcium Carbonate/Vitamin D3 1250 MG-200 Unit Tab PO SCH (08:07)
[2017-12-22] MEDS: Furosemide 20 MG Tab PO SCH (08:07)
[2017-12-22] MEDS: Losartan 50 MG Tab PO SCH (08:07)
[2017-12-22] MEDS: Citalopram 10 MG Tab PO SCH (08:07)
[2017-12-22] MEDS: Saccharomyces Boulardii (Probiotic) 250 MG Cap PO SCH (08:07)
[2017-12-22] MEDS: Acetaminophen 650 MG Tab.ER PO SCH ×2 (08:08→20:30)
[2017-12-22] MEDS: Clopidogrel 75 MG Tab PO SCH (08:08)
[2017-12-22] MEDS: Metoprolol Tartrate 25 MG Tab PO SCH ×2 (08:08→20:29)
[2017-12-22] MEDS: Gabapentin 600 MG Tab PO SCH ×2 (08:08→20:30)
[2017-12-22] MEDS: Cholecalciferol (Vitamin D3) 1,000 Unit Tab PO SCH (08:09)
[2017-12-22] MEDS: Docusate Sodium 100 MG Cap PO PRN (08:16)
[2017-12-22] MEDS: Melatonin 3 MG Tab PO SCH (20:30)
[2017-12-22] MEDS: Mirtazapine 15 MG Tab PO SCH (20:31)
[2017-12-23] MEDS: Levothyroxine 88 MCG Tab PO SCH (06:41)
[2017-12-23] MEDS: Calcium Carbonate/Vitamin D3 1250 MG-200 Unit Tab PO SCH (08:57)
[2017-12-23] MEDS: Citalopram 10 MG Tab PO SCH (08:57)
[2017-12-23] MEDS: Clopidogrel 75 MG Tab PO SCH (08:58)
[2017-12-23] MEDS: Furosemide 20 MG Tab PO SCH (08:58)
[2017-12-23] MEDS: Saccharomyces Boulardii (Probiotic) 250 MG Cap PO SCH (08:58)
[2017-12-23] MEDS: Acetaminophen 650 MG Tab.ER PO SCH (08:59)
[2017-12-23] MEDS: Gabapentin 600 MG Tab PO SCH (08:59)
[2017-12-23] MEDS: Cholecalciferol (Vitamin D3) 1,000 Unit Tab PO SCH (09:07)
[2017-12-23] MEDS: Metoprolol Tartrate 25 MG Tab PO SCH (09:07)
[2017-12-23] MEDS: Losartan 50 MG Tab PO SCH (09:08)
[2017-12-23 14:45] VITALS: BP 118/62
--- NOTE | 2017-12-24 08:27 | DISCH ---
DISCHARGE DATE: 12/23/2017 REASON FOR ADMISSION: 1. Generalized weakness and physical deconditioning. 2. Acute febrile illness. 3. Hypertension. 4. Hypothyroidism. 5. Depression. CONSULTATIONS: Physical and Occupational Therapy. BRIEF HISTORY: This is an 87-year-old female who lives alone, brought in by the family because of fever, diarrhea, body aches for a duration of 1 or 2 days. She did not have any findings on lab and x-ray examination, and she was admitted to swing bed on the for strengthening because she was very weak and unable to return home alone. She did very well on physical therapy and was discharged today with previous home medications. She will continue with home health at home for strengthening therapy and medication management. DISCHARGE MEDICATIONS: 1. Acetaminophen. 2. Align. 3. Calcium and vitamin D3. 4. Citalopram, which was a new prescription. 5. Plavix 75 mg a day. 6. Furosemide 20 mg p.o. daily. 7. Gabapentin 600 mg p.o. b.i.d. 8. Levothyroxine 88 mcg a day. 9. Losartan 50 mg daily. 10.Lutein 20 mg a day. 11.Melatonin 3 mg at bedtime p.r.n. 12.Metoprolol 25 mg b.i.d. 13.Remeron 15 mg at bedtime. Please note that I spent more than 35 minutes in the discharge of the patient. She is advised to see her PCP within 1 week of discharge. /[id number] JEAN/TAD
== END 2017-12-23 13:30 | disposition home health service (06) | DRG 948 ==
LOC: FB.MS 13:00
PROVIDERS: ADMIT Family Medicine; ATTEND Family Medicine
DX: R53.1 Weakness (principal); I69.954 Hemiplegia and hemiparesis following unspecified cerebrovascular disease affecting left non-dominant side; I10 Essential (primary) hypertension; Z51.5 Encounter for palliative care; E03.9 Hypothyroidism, unspecified; F32.9 Major depressive disorder, single episode, unspecified; M54.9 Dorsalgia, unspecified; G89.29 Other chronic pain; E78.00 Pure hypercholesterolemia, unspecified; Z87.891 Personal history of nicotine dependence; Z88.1 Allergy status to other antibiotic agents
CPT/HCPCS: 97110-GO; 97110-GP; 97116-GP; 97530-GO; 97530-GO-KX; 97535-GO; A9270-GY

== ENCOUNTER 2018-01-25 17:39 | Observation (INO) | payer MEDICARE ==
[2018-01-25] MEDS ORDERED: Meclizine 25 MG Tab PO STA (18:40)
--- NOTE | 2018-01-25 18:51 | EDM.PDOC ---
ED HPI GENERAL MEDICAL PROBLEM - General Stated Complaint: DIZZINESS Time Seen by Provider: 01/25/18 17:39 Source of Information: Reports: Patient, Family History Limitations: Reports: No Limitations - History of Present Illness INITIAL COMMENTS - FREE TEXT/NARRATIVE: 87 y.o.w.f came with her daughter to the ED due to sudden onst of Dizziness, unable to ambulate. No N/V/D no trauma, no C/P no palpitations. Pt is a poor historian. BP 141/72 pulse 72 RR 18 Pulse ox 98% Temp 36.6 Onset: Today Onset Date: 01/25/18 Onset Time: 11:00 Duration: Hour(s): Location: Reports: Head, Generalized Quality: Reports: Other (dizzy) Improves with: Reports: None Worsens with: Reports: Movement Context: Reports: Other ((?)) Headache Pain Score (Numeric/FACES): 3 denies pain when asked Pain Score (Numeric/FACES): 0 - Related Data Allergies Allergy/AdvReac Type Severity Reaction Status Date / Time amoxicillin [Amoxicillin] Allergy Nausea and Verified 01/25/18 20:40 Vomiting Home Meds: Home Meds Cholecalciferol (Vitamin D3) [Vitamin D3] 2,000 units PO DAILY 07/07/17 [History ] Lutein 20 mg PO DAILY 07/07/17 [History] Acetaminophen [Tylenol Arthritis Pain] 1,300 mg PO BID tab.er 07/08/17 [Rx] Levothyroxine [Synthroid] 88 mcg PO 0600 #90 tablet 07/08/17 [Rx] Metoprolol Tartrate [Lopressor] 25 mg PO BID tablet 07/08/17 [Rx] Bifidobacterium Infantis [Align] 4 mg PO DAILY 09/17/17 [History] Calcium Phosphate Trib/Vit D3 [Calcium + Vitamin D3 Gummies] 2 tab CHEW DAILY [History] Codeine Phosphate/Guaifenesin [Guaifen-Codeine 100-10 mg/5 ml] 5 ml PO BID PRN 12/16/17 [History] Furosemide 20 mg PO DAILY PRN 12/16/17 [History] Mirtazapine [Remeron] 15 mg PO BEDTIME 12/16/17 [History] Citalopram Hydrobromide [Celexa] 10 mg PO DAILY 01/26/18 [History] Clopidogrel [Plavix] 75 mg PO DAILY 01/26/18 [History] Dicyclomine [Bentyl] 10 mg PO TID 01/26/18 [History] Gabapentin [Neurontin] 600 mg PO BID 01/26/18 [History] Losartan [Cozaar] 25 mg PO DAILY 01/26/18 [History] Melatonin 5 mg PO BEDTIME 01/26/18 [History] Simvastatin [Zocor] 20 mg PO BEDTIME 01/26/18 [History] Past Medical History HEENT History: Reports: Cataract Cardiovascular History: Reports: High Cholesterol, Hypertension, Syncope Respiratory History: Reports: Asthma Other Respiratory History: L sided endarterectomy. 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 Musculoskeletal History: Reports: Back Pain, Chronic, Other (See Below) Other Musculoskeletal History: Chronic problem with L foot, has had right shoulder and left knee pain since falling a month ago. reflex sympathetic dystrophy. 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 Psychiatric History: Reports: Depression Endocrine/Metabolic History: Reports: Hypothyroidism Other Endocrine/Metabolic History: Takes synthroid. Hematologic History: Reports: Other (See Below) Other Hematologic History: On plavix for cholesterol. Other Oncologic History: Lumps removed, no CA. Dermatologic History: Reports: Cellulitis - Infectious Disease History Infectious Disease History: Reports: Chicken Pox, Influenza, Measles, Pertussis (Whooping Cough), Rubella - Past Surgical History HEENT Surgical History: Reports: Cataract Surgery Cardiovascular Surgical History: Reports: Carotid Endarterectomy Female Surgical History: Reports: Breast Biopsy, Hysterectomy Social & Family History - Family History Family Medical History: Noncontributory HEENT: Reports: None Cardiac: Reports: Heart Failure, High Cholesterol, Hypertension, Other (See Below) Other Cardiac Family History: daughter with a prolapsed mitral valve Respiratory: Reports: Asthma, COPD GI: Reports: None OBGYN: Reports: , Recurrent Spontaneous Musculoskeletal: Reports: Arthritis, Back pain, Chronic Neurological: Reports: Parkinson's Psychiatric: Reports: None Endocrine/Metabolic: Reports: Hyperthyroidism Hematologic: Reports: None Oncologic: Reports: Lung, Skin - Tobacco Use Smoking Status *Q: Never Smoker Years of Tobacco use: 20 Used Tobacco, but Quit: Yes Month Tobacco Last Used: June Second Hand Smoke Exposure: No - Caffeine Use Caffeine Use: Reports: None Other Caffeine Use: mostly drinks decaf coffee - Alcohol Use Days Per Week of Alcohol Use: 1 Number of Drinks Per Day: 1 Total Drinks Per Week: 1 - Recreational Drug Use Recreational Drug Use: No ED ROS ENT - Review of Systems Review Of Systems: Unable To Obtain ED EXAM, ENT - Physical Exam Exam: See Below Exam Limited By: Altered Mental Status General Appearance: Alert, WD/WN, Thin Eye Exam: Bilateral Eye: EOMI, Normal Fundi, PERRL Ears: Normal External Exam, Normal Canal Nose: Normal Inspection, Normal Mucousa Mouth/Throat: Normal Inspection, Normal Gums, Normal Lips, Normal Oropharynx Head: Atraumatic, Normocephalic Neck: Normal Inspection, Supple, Non-Tender, Full Range of Motion Respiratory/Chest: No Respiratory Distress, Lungs Clear Cardiovascular: Normal Peripheral Pulses, Regular Rate, Rhythm, No Edema, No Gallop GI/Abdominal: Normal Bowel Sounds, Soft, Non-Tender (Female) Exam: Deferred Rectal (Female) Exam: Deferred Back: Normal Inspection, Full Range of Motion Extremities: Normal Inspection, Normal Range of Motion, Non-Tender, No Pedal Edema, Normal Capillary Refill Neurological: Alert, CN II-XII Intact, Abnormal Gait (unsteady) Psychiatric: Normal Affect, Normal Mood Skin: Warm, Dry, Intact, Pallor Lymphatic: No Adenopathy EKG INTERPRETATION EKG Date: 01/25/18 Time: 18:40 Rhythm: NSR Rate (Beats/Min): 60 [place]: Normal P-Wave: Present QRS: Normal ST-T: Normal QT: Normal Comparison: NA - No Prior EKG Course - Vital Signs Text/Narrative:: 87 y.o.w.f came with her daughter to the ED due to sudden onst of Dizziness, unable to ambulate. No N/V/D no trauma, no C/P no palpitations. Pt is a poor historian. BP 141/72 pulse 72 RR 18 Pulse ox 98% Temp 36.6 PE: WNWD pale appearing WF with unsteady gate due to dizzyness, dizziness at rest as well Imaging: CT head NAD as per RAD Labs: HGB 9.8 BUN 26 Cr 1.4 GFR 38 Troponin 0.017 Impression: Dizziness, cause not determined Tx: NS, Antivert Reexam: No improvement Consultation: Dr. Priest: Accepted the pt for admission to Obs on tele. Hold off on an MRI Plan: Admit for obs Last Recorded V/S: Last Vital Signs Temp 36.4 C 01/26/18 07:30 Pulse 60 01/26/18 07:30 Resp 18 01/26/18 07:30 BP 155/75 H 01/26/18 09:41 Pulse Ox 99 01/26/18 07:30 - Orders/Labs/Meds Orders: Active Orders 24 hr Category Date Time Status EKG 12 Lead [EK] Routine Ther 01/25/18 17:43 Ordered Medication Orders Acetaminophen (Tylenol Arthritis Pain) 1,300 mg PO BID [facility] Last Admin: 01/26/18 09:43 Dose: 1,300 mg Admin: 01/26/18 00:17 Dose: 1,300 mg Citalopram Hydrobromide (Celexa) 10 mg PO DAILY [facility] Last Admin: 01/26/18 09:40 Dose: 10 mg Clopidogrel Bisulfate (Plavix) 75 mg PO DAILY [facility] Last Admin: 01/26/18 09:43 Dose: 75 mg Dicyclomine HCl (Bentyl) 10 mg PO TID [facility] Last Admin: 01/26/18 09:38 Dose: 10 mg Furosemide (Lasix) 20 mg PO DAILY PRN PRN Reason: edema Gabapentin (Neurontin) 600 mg PO BID [facility] Last Admin: 01/26/18 09:42 Dose: 600 mg Admin: 01/26/18 00:16 Dose: 600 mg Guaifenesin/Codeine Phosphate (Robitussin Ac) 5 ml PO BID PRN PRN Reason: Cough Sodium Chloride (Normal Saline) 1,000 mls @ 125 mls/hr IV ASDIRECTED [facility] Last Admin: 01/26/18 06:08 Dose: 125 mls/hr Infusion: 01/26/18 06:08 Dose: 125 mls/hr Admin: 01/25/18 22:30 Dose: 125 mls/hr Ketorolac Tromethamine (Toradol) 15 mg IVPUSH Q8H PRN PRN Reason: Pain Stop: 01/30/18 20:08 Lactobacillus Rhamnosus (Culturelle) 1 cap PO DAILY [facility] Last Admin: 01/26/18 09:41 Dose: 1 cap Levothyroxine Sodium (Synthroid) 88 mcg PO 0600 [facility] Last Admin: 01/26/18 05:54 Dose: 88 mcg Losartan Potassium (Cozaar) 25 mg PO DAILY [facility] Last Admin: 01/26/18 09:41 Dose: 25 mg Melatonin (Melatonin) 5 mg PO BEDTIME [facility] Last Admin: 01/26/18 00:17 Dose: 5 mg Mirtazapine (Remeron) 15 mg PO BEDTIME [facility] Last Admin: 01/26/18 00:18 Dose: 15 mg Calcium Phosphate Trib/Vit [id number] * Ptom 2 tab CHEW DAILY [facility] Last Admin: 01/26/18 09:38 Dose: 2 tab Cholecalciferol ( Vitamin D3) 1,000 Units Gummie *Ptom 2,000 units PO DAILY [facility] Last Admin: 01/26/18 09:40 Dose: 2,000 units Lutein 20 Mg Cap * (Ptom) 20 mg PO DAILY [facility] Last Admin: 01/26/18 09:42 Dose: 20 mg Simvastatin (Zocor) 20 mg PO BEDTIME [facility] Sodium Chloride (Saline Flush) 10 ml FLUSH ASDIRECTED PRN PRN Reason: Keep Vein Open Last Admin: 01/25/18 20:20 Dose: 10 ml Labs: Laboratory Tests 01/25/18 01/25/18 01/25/18 Range/Units 18:00 18:00 18:00 WBC 6.0 (4.5-12.0) X10-3/uL RBC 3.48 (3.23-5.20) x10(6)uL Hgb 9.8 L (11.5-15.5) g/dL Hct 30.5 (30.0-51.3) % MCV 87.7 (80-96) fL MCH 28.3 (27.7-33.6) pg MCHC 32.2 (32.2-35.4) g/dL RDW 13.6 (11.5-15.5) % Plt Count 236 (125-369) X10(3)uL MPV 8.1 (7.4-10.4) fL Neut % (Auto) 58.8 (46-82) % Lymph % (Auto) 31.4 (13-37) % Lander % (Auto) 8.7 (4-12) % Eos % (Auto) 1 (1.0-5.0) % Baso % (Auto) 1 (0-2) % Neut # (Auto) 3.6 (1.6-8.3) # Lymph # (Auto) 1.9 (0.6-5.0) # Lander # (Auto) 0.5 (0.0-1.3) # Eos # (Auto) 0.0 (0.0-0.8) # Baso # (Auto) 0.0 (0.0-0.2) # PT 11.0 (8.7-11.1) INR 1.09 (0.89-1.13) Sodium 137 (135-145) mmol/L Potassium 4.3 (3.5-5.3) mmol/L Chloride 100 D (100-110) mmol/L Carbon Dioxide 29 (21-32) mmol/L BUN 26 H D (7-18) mg/dL Creatinine 1.4 H (0.55-1.02) mg/dL Est Cr Clr Drug Dosing TNP Estimated GFR (MDRD) 35 L (>60) BUN/Creatinine Ratio 18.6 (9-20) Glucose 95 (80-116) mg/dL Lactic Acid (0.4-2.2) mmol/L Calcium 9.4 (8.6-10.2) mg/dL Creatine Kinase 216 H (60-160) IU/L Troponin I (<0.017-0.056) ng/mL 01/25/18 01/25/18 Range/Units 18:00 18:00 WBC (4.5-12.0) X10-3/uL RBC (3.23-5.20) x10(6)uL Hgb (11.5-15.5) g/dL Hct (30.0-51.3) % MCV (80-96) fL MCH (27.7-33.6) pg MCHC (32.2-35.4) g/dL RDW (11.5-15.5) % Plt Count (125-369) X10(3)uL MPV (7.4-10.4) fL Neut % (Auto) (46-82) % Lymph % (Auto) (13-37) % Lander % (Auto) (4-12) % Eos % (Auto) (1.0-5.0) % Baso % (Auto) (0-2) % Neut # (Auto) (1.6-8.3) # Lymph # (Auto) (0.6-5.0) # Lander # (Auto) (0.0-1.3) # Eos # (Auto) (0.0-0.8) # Baso # (Auto) (0.0-0.2) # PT (8.7-11.1) INR (0.89-1.13) Sodium (135-145) mmol/L Potassium (3.5-5.3) mmol/L Chloride (100-110) mmol/L Carbon Dioxide (21-32) mmol/L BUN (7-18) mg/dL Creatinine (0.55-1.02) mg/dL Est Cr Clr Drug Dosing Estimated GFR (MDRD) (>60) BUN/Creatinine Ratio (9-20) Glucose (80-116) mg/dL Lactic Acid 0.7 (0.4-2.2) mmol/L Calcium (8.6-10.2) mg/dL Creatine Kinase (60-160) IU/L Troponin I < 0.017 L (<0.017-0.056) ng/mL Meds: Medications Generic Name Dose Route Start Last Admin Trade Name Freq PRN Reason Stop Dose Admin Acetaminophen 1,300 mg 01/25/18 23:45 01/26/18 09:43 Tylenol Arthritis Pain PO 1,300 mg BID [facility] Administration Citalopram Hydrobromide 10 mg 01/26/18 09:00 01/26/18 09:40 Celexa PO 10 mg DAILY [facility] Administration Clopidogrel Bisulfate 75 mg 01/26/18 09:00 01/26/18 09:43 Plavix PO 75 mg DAILY [facility] Administration Dicyclomine HCl 10 mg 01/26/18 09:00 01/26/18 09:38 Bentyl PO 10 mg TID [facility] Administration Furosemide 20 mg 01/26/18 08:46 Lasix PO DAILY PRN edema Gabapentin 600 mg 01/25/18 23:45 01/26/18 09:42 Neurontin PO 600 mg BID [facility] Administration Guaifenesin/Codeine Phosphate 5 ml 01/26/18 08:46 Robitussin Ac PO BID PRN Cough Sodium Chloride 1,000 mls @ 125 mls/hr 01/25/18 20:00 01/26/18 06:08 Normal Saline IV 125 mls/hr ASDIRECTED [facility] Administration Ketorolac Tromethamine 15 mg 01/26/18 08:00 Toradol IVPUSH 01/30/18 20:08 Q8H PRN Pain Lactobacillus Rhamnosus 1 cap 01/26/18 09:00 01/26/18 09:41 Culturelle PO 1 cap DAILY [facility] Administration Levothyroxine Sodium 88 mcg 01/26/18 06:00 01/26/18 05:54 Synthroid PO 88 mcg 0600 [facility] Administration Losartan Potassium 25 mg 01/26/18 09:00 01/26/18 09:41 Cozaar PO 25 mg DAILY [facility] Administration Melatonin 5 mg 01/25/18 23:55 01/26/18 00:17 Melatonin PO 5 mg BEDTIME [facility] Administration Mirtazapine 15 mg 01/25/18 23:55 01/26/18 00:18 Remeron PO 15 mg BEDTIME [facility] Administration Calcium Phosphate 2 tab 01/26/18 09:00 01/26/18 09:38 Trib/Vit [id number] * CHEW 2 tab Ptom DAILY [facility] Administration Cholecalciferol ( 2,000 units 01/26/18 09:00 01/26/18 09:40 Vitamin D3) 1,000 PO 2,000 units Units Gummie *Ptom DAILY [facility] Administration Lutein 20 Mg Cap * 20 mg 01/26/18 09:00 01/26/18 09:42 Ptom PO 20 mg DAILY [facility] Administration Simvastatin 20 mg 01/26/18 21:00 Zocor PO BEDTIME [facility] Sodium Chloride 10 ml 01/25/18 19:47 01/25/18 20:20 Saline Flush FLUSH 10 ml ASDIRECTED PRN Administration Keep Vein Open Discontinued Medications Generic Name Dose Route Start Last Admin Trade Name Freq PRN Reason Stop Dose Admin Ketorolac Tromethamine 15 mg 01/25/18 20:08 01/25/18 20:20 Toradol IVPUSH 01/30/18 20:08 15 mg Q8H PRN Administration Pain Meclizine HCl 50 mg 01/25/18 18:40 01/25/18 18:47 Antivert PO 01/25/18 18:41 50 mg ONETIME STA Administration Departure - Departure Disposition: Refer to Observation - Discharge Information - My Orders Last 24 Hours: My Active Orders 01/25/18 17:43 EKG 12 Lead [EK] Routine - Assessment/Plan Last 24 Hours: My Active Orders 01/25/18 17:43 EKG 12 Lead [EK] Routine
[2018-01-25] MEDS ORDERED: Sodium Chloride 0.9% 10 ML Syringe FLUSH PRN (19:47)
[2018-01-25] MEDS ORDERED: Ketorolac 30 MG/ML SDV IVPUSH PRN (20:08)
[2018-01-25] MEDS: Sodium Chloride 0.9% 1,000 ML IV SCH (22:30)
[2018-01-26] MEDS: Gabapentin 300 MG Cap**OWN MED PO SCH ×3 (00:16→20:39)
[2018-01-26] MEDS: MELATONIN 5 MG PO SCH ×2 (00:17→20:38)
[2018-01-26] MEDS: ACETAMINOPHEN 650 MG PO SCH ×3 (00:17→20:39)
[2018-01-26] MEDS: Mirtazapine 15 MG Tab**OWN MED PO SCH ×2 (00:18→20:39)
[2018-01-26] MEDS: Levothyroxine 88 MCG Tab**OWN MED PO SCH (05:54)
[2018-01-26] MEDS: Sodium Chloride 0.9% 1,000 ML IV SCH (06:08)
[2018-01-26] MEDS ORDERED: Ketorolac 15 MG/ML SDV IVPUSH PRN (08:00)
[2018-01-26] MEDS ORDERED: Furosemide 20 MG Tab PO PRN (08:46)
[2018-01-26] MEDS ORDERED: Codeine/guaiFENesin 100-10 MG/5 ML Syrup 5 ML Cup PO PRN (08:46)
--- NOTE | 2018-01-26 08:53 | PCM.HP ---
H&P History of Present Illness - General Date of Service: 01/26/18 Admit Problem/Dx: Admission Diagnosis/Problem Admission Diagnosis/Problem Dizziness and giddiness Source of Information: Patient, Family - History of Present Illness Initial Comments - Free Text/Narative: Radha is an 87-year-old female complaining of dizziness. She describes spinning sensation even at rest, sudden onset on Thursday and got worse yesterday. She was brought to the ER by family members, her daughter .She is unable to walk because of that and because he should blurred vision and a headache. She has a history of hypertension, previously stable, depression that has been stable but has no previous illness of this nature. She was admitted late last year because of fever & weakness and ended up in swing bed for rehabilitation. She was discharged home with home health at that visit. Headache Pain Score (Numeric/FACES): 3 - Related Data Allergies/Adverse Reactions: Allergies Allergy/AdvReac Type Severity Reaction Status Date / Time amoxicillin [Amoxicillin] Allergy Nausea and Verified 01/25/18 20:40 Vomiting Home Medications: Home Meds Cholecalciferol (Vitamin D3) [Vitamin D3] 2,000 units PO DAILY 07/07/17 [History ] Lutein 20 mg PO DAILY 07/07/17 [History] Acetaminophen [Tylenol Arthritis Pain] 1,300 mg PO BID tab.er 07/08/17 [Rx] Levothyroxine [Synthroid] 88 mcg PO 0600 #90 tablet 07/08/17 [Rx] Metoprolol Tartrate [Lopressor] 25 mg PO BID tablet 07/08/17 [Rx] Bifidobacterium Infantis [Align] 4 mg PO DAILY 09/17/17 [History] Calcium Phosphate Trib/Vit D3 [Calcium + Vitamin D3 Gummies] 2 tab CHEW DAILY [History] Codeine Phosphate/Guaifenesin [Guaifen-Codeine 100-10 mg/5 ml] 5 ml PO BID PRN 12/16/17 [History] Furosemide 20 mg PO DAILY PRN 12/16/17 [History] Mirtazapine [Remeron] 15 mg PO BEDTIME 12/16/17 [History] Citalopram Hydrobromide [Celexa] 10 mg PO DAILY 01/26/18 [History] Clopidogrel [Plavix] 75 mg PO DAILY 01/26/18 [History] Dicyclomine [Bentyl] 10 mg PO TID 01/26/18 [History] Gabapentin [Neurontin] 600 mg PO BID 01/26/18 [History] Losartan [Cozaar] 25 mg PO DAILY 01/26/18 [History] Melatonin 5 mg PO BEDTIME 01/26/18 [History] Simvastatin [Zocor] 20 mg PO BEDTIME 01/26/18 [History] Past Medical History HEENT History: Reports: Cataract Cardiovascular History: Reports: High Cholesterol, Hypertension, Syncope Respiratory History: Reports: Asthma, Pneumonia, Recurrent Other Respiratory History: L sided endarterectomy. Gastrointestinal History: Reports: Cholelithiasis, GERD, Hemorrhoids, Irritable Bowel Syndrome Other Gastrointestinal History: GERD is better. Genitourinary History: Reports: Urinary Incontinence [employer] History: Reports: , Other (See Below) Other OB/BYN History: Hysterectomy ovaries removed. 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 Rotator cuff injury to right shoulder. 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 Psychiatric History: Reports: Depression Endocrine/Metabolic History: Reports: Hypothyroidism Other Endocrine/Metabolic History: Takes synthroid. Hematologic History: Reports: Other (See Below) Other Hematologic History: On plavix for cholesterol. Other Oncologic History: Lumps removed, no CA. Dermatologic History: Reports: Cellulitis - Infectious Disease History Infectious Disease History: Reports: Chicken Pox, Influenza, Measles, Pertussis (Whooping Cough), Rubella - Past Surgical History HEENT Surgical History: Reports: Cataract Surgery Cardiovascular Surgical History: Reports: Carotid Endarterectomy, Other (See Below) Other Cardiovascular Surgeries/Procedures: L sided endarterectomy. GI Surgical History: Reports: Appendectomy, Cholecystectomy, Colonoscopy Female Surgical History: Reports: Breast Biopsy, Hysterectomy Endocrine Surgical History: Reports: Thyroidectomy Musculoskeletal Surgical History: Reports: Other (See Below) Other Musculoskeletal Surgeries/Procedures:: Carpal tunnel surgery to left and right. Back surgery X2 calcification and ruptured disc. Social & Family History - Family History Family Medical History: Noncontributory HEENT: Reports: None Cardiac: Reports: Heart Failure, High Cholesterol, Hypertension, Other (See Below) Other Cardiac Family History: daughter with a prolapsed mitral valve Respiratory: Reports: Asthma, COPD GI: Reports: None OBGYN: Reports: , Recurrent Spontaneous Musculoskeletal: Reports: Arthritis, Back pain, Chronic Neurological: Reports: Parkinson's Psychiatric: Reports: None Endocrine/Metabolic: Reports: Hyperthyroidism Hematologic: Reports: None Oncologic: Reports: Lung, Skin - Tobacco Use Smoking Status *Q: Former Smoker Years of Tobacco use: 20 Used Tobacco, but Quit: No Month Tobacco Last Used: June Second Hand Smoke Exposure: No - Caffeine Use Caffeine Use: Reports: Other Other Caffeine Use: Drinks decaf coffee. - Alcohol Use Days Per Week of Alcohol Use: 1 Number of Drinks Per Day: 1 Total Drinks Per Week: 1 - Recreational Drug Use Recreational Drug Use: No H&P Review of Systems - Review of Systems: Review Of Systems: ROS reveals no pertinent complaints other than HPI. Exam - Exam Exam: See Below - Vital Signs Vital Signs: Last Vital Signs Temp 97.6 F 01/26/18 05:45 Pulse 64 01/26/18 05:45 Resp 16 01/26/18 05:45 BP 178/84 H 01/26/18 05:45 Pulse Ox 97 01/26/18 05:45 Weight: 73.754 kg - Exam General: Alert, Oriented, 4 HEENT: Other (Horizontal nystagmus,bilateral) Neck: Supple, Trachea Midline, 2 Lungs: Clear to Auscultation, Normal Respiratory Effort Cardiovascular: Regular Rate, Regular Rhythm GI/Abdominal Exam: Normal Bowel Sounds, Soft, Non-Tender, No Organomegaly, No Distention, No Abnormal Bruit, No Mass, Pelvis Stable (Female) Exam: Deferred Rectal (Female) Exam: Deferred Back Exam: Normal Inspection, Full Range of Motion, NT Extremities: Normal Inspection, Normal Range of Motion, Non-Tender, No Pedal Edema, Normal Capillary Refill Skin: Warm, Dry, Intact Neurological: Cranial Nerves Intact, Reflexes Equal Bilateral Neuro Extensive - Mental Status: Alert, Oriented x3, Normal Mood/Affect, Normal Cognition Neuro Extensive - Motor, Sensory, Reflexes: CN II-XII Intact, Normal Gait, Normal Reflexes Psychiatric: Alert, Normal Affect, Normal Mood - Patient Data Lab Results Last 24 hrs: Laboratory Results - last 24 hr 01/26/18 Range/Units 06:18 Urine Color Yellow (YELLOW) Urine Appearance Clear (CLEAR) Urine pH 5.0 (5.0-6.5) Ur Specific [place] 1.010 (1.010-1.025) Urine Protein Negative (NEGATIVE) mg/dL Urine Glucose (UA) Normal (NEGATIVE) mg/dL Urine Ketones Negative (NEGATIVE) mg/dL Urine Occult Blood Negative (NEGATIVE) Urine Nitrite Negative (NEGATIVE) Urine Bilirubin Negative (NEGATIVE) Urine Urobilinogen Normal (NEGATIVE) mg/dL Ur Leukocyte Esterase Negative (NEGATIVE) Urine RBC 0-5 (0) Urine WBC 0-5 (0) Ur Squamous Epith Cells Few H (NS,R,O) Urine Bacteria Few H (NS) Urine Mucus Few H (NS) Result Diagrams: 01/25/18 18:00 01/25/18 18:00 Imaging Impressions Last 24 hrs: CT head normal *Q Meaningful Use (ADM) - VTE *Q VTE Criteria *Q: - Stroke *Q Stroke Criteria *Q: - AMI *Q AMI Criteria *Q: - Problem List (1) BPPV (benign paroxysmal positional vertigo) SNOMED Code(s): 166775264 ICD Code: H81.10 - BENIGN PAROXYSMAL VERTIGO, UNSPECIFIED EAR Status: Acute Current Visit: Yes Qualifiers: Laterality: unspecified laterality Qualified Code(s): H81.10 - Benign paroxysmal vertigo, unspecified ear (2) MDD (major depressive disorder) SNOMED Code(s): 482579188 ICD Code: F32.9 - MAJOR DEPRESSIVE DISORDER, SINGLE EPISODE, UNSPECIFIED Status: Acute Current Visit: Yes Qualifiers: Active/Remission status: currently active Psychotic features: without psychotic features (3) General weakness SNOMED Code(s): 85541782 ICD Code: R53.1 - WEAKNESS Status: Acute Current Visit: No (4) Syncopal episodes SNOMED Code(s): 538451936 ICD Code: R55 - SYNCOPE AND COLLAPSE Status: Chronic Current Visit: No Qualifiers: Syncope type: unspecified Qualified Code(s): R55 - Syncope and collapse (5) HTN, Benign essential hypertension SNOMED Code(s): 5291475 ICD Code: I10 - ESSENTIAL (PRIMARY) HYPERTENSION Status: Chronic Current Visit: No (6) Hypothyroidism SNOMED Code(s): 48490004 ICD Code: E03.9 - HYPOTHYROIDISM, UNSPECIFIED Status: Acute Current Visit : Yes Qualifiers: Hypothyroidism type: unspecified Qualified Code(s): E03.9 - Hypothyroidism , unspecified Problem List Initiated/Reviewed/Updated: Yes Orders Last 24hrs: Active Orders 24 hr Category Date Time Status OT Evaluation and Treatment [CONS] Routine Cons 01/26/18 08:45 Ordered PT Evaluation and Treatment [CONS] Routine Cons 01/26/18 08:45 Ordered Acetaminophen [Tylenol Arthritis Pain] Med 01/25/18 23:45 Active 1,300 mg PO BID Acetaminophen [Tylenol Arthritis Pain] Med 01/26/18 09:00 Ordered 1,300 mg PO BID Bifidobacterium Infantis [Align] Med 01/26/18 09:00 Ordered 4 mg PO DAILY Calcium Phosphate Trib/Vit D3 [Calcium + Vitamin D3 Med 01/26/18 09:00 Ordered Gummies] 2 tab CHEW DAILY Cholecalciferol (Vitamin D3) [Vitamin D3] Med 01/26/18 09:00 Ordered 2,000 units PO DAILY Citalopram Hydrobromide [Celexa] Med 01/26/18 09:00 Ordered 10 mg PO DAILY Clopidogrel [Plavix] Med 01/26/18 09:00 Ordered 75 mg PO DAILY Codeine Phosphate/Guaifenesin [Guaifen-Codeine 100-10 Med 01/26/18 08:46 Ordered mg/5 ml] 5 ml PO BID PRN Dicyclomine [Bentyl] Med 01/26/18 09:00 Ordered 10 mg PO TID Furosemide [Furosemide] Med 01/26/18 08:46 Ordered 20 mg PO DAILY PRN Gabapentin [Neurontin] Med 01/25/18 23:45 Active 600 mg PO BID Ketorolac [Toradol] Med 01/26/18 08:00 Active 15 mg IVPUSH Q8H PRN Levothyroxine [Synthroid] Med 01/26/18 06:00 Active 88 mcg PO 0600 Levothyroxine [Synthroid] Med 01/27/18 06:00 Ordered 88 mcg PO 0600 Losartan [Cozaar] Med 01/26/18 09:00 Ordered 25 mg PO DAILY Lutein [Lutein] Med 01/26/18 09:00 Ordered 20 mg PO DAILY Melatonin Med 01/25/18 23:55 Active 5 mg PO BEDTIME Melatonin [Melatonin] Med 01/26/18 21:00 Ordered 5 mg PO BEDTIME Mirtazapine [Remeron] Med 01/25/18 23:55 Active 15 mg PO BEDTIME Mirtazapine [Remeron] Med 01/26/18 21:00 Ordered 15 mg PO BEDTIME Simvastatin [Zocor] Med 01/26/18 21:00 Ordered 20 mg PO BEDTIME Medication Orders Acetaminophen (Tylenol Arthritis Pain) 1,300 mg PO BID [facility] Last Admin: 01/26/18 00:17 Dose: 1,300 mg Gabapentin (Neurontin) 600 mg PO BID [facility] Last Admin: 01/26/18 00:16 Dose: 600 mg Sodium Chloride (Normal Saline) 1,000 mls @ 125 mls/hr IV ASDIRECTED [facility] Last Admin: 01/26/18 06:08 Dose: 125 mls/hr Infusion: 01/26/18 06:08 Dose: 125 mls/hr Admin: 01/25/18 22:30 Dose: 125 mls/hr Ketorolac Tromethamine (Toradol) 15 mg IVPUSH Q8H PRN PRN Reason: Pain Stop: 01/30/18 20:08 Levothyroxine Sodium (Synthroid) 88 mcg PO 0600 [facility] Last Admin: 01/26/18 05:54 Dose: 88 mcg Melatonin (Melatonin) 5 mg PO BEDTIME [facility] Last Admin: 01/26/18 00:17 Dose: 5 mg Mirtazapine (Remeron) 15 mg PO BEDTIME [facility] Last Admin: 01/26/18 00:18 Dose: 15 mg Non-Formulary Medication (Acetaminophen [Tylenol Arthritis Pain]) 1,300 mg PO BID [facility] Non-Formulary Medication (Bifidobacterium Infantis [Align]) 4 mg PO DAILY [facility] Non-Formulary Medication (Calcium Phosphate Trib/Vit D3 [Calcium + Vitamin D3 Gummies]) 2 tab CHEW DAILY [facility] Non-Formulary Medication (Cholecalciferol (Vitamin D3) [Vitamin D3]) 2,000 units PO DAILY [facility] Non-Formulary Medication (Citalopram Hydrobromide [Celexa]) 10 mg PO DAILY [facility] Non-Formulary Medication (Clopidogrel [Plavix]) 75 mg PO DAILY [facility] Non-Formulary Medication (Codeine Phosphate/Guaifenesin [Guaifen-Codeine 100-10 Mg/5 Ml]) 5 ml PO BID PRN PRN Reason: Cough Non-Formulary Medication (Dicyclomine [Bentyl]) 10 mg PO TID [facility] Non-Formulary Medication (Furosemide [Furosemide]) 20 mg PO DAILY PRN PRN Reason: edema Non-Formulary Medication (Levothyroxine [Synthroid]) 88 mcg PO 0600 [facility] Non-Formulary Medication (Losartan [Cozaar]) 25 mg PO DAILY [facility] Non-Formulary Medication (Lutein [Lutein]) 20 mg PO DAILY [facility] Non-Formulary Medication (Melatonin [Melatonin]) 5 mg PO BEDTIME [facility] Non-Formulary Medication (Mirtazapine [Remeron]) 15 mg PO BEDTIME [facility] Non-Formulary Medication (Simvastatin [Zocor]) 20 mg PO BEDTIME [facility] Sodium Chloride (Saline Flush) 10 ml FLUSH ASDIRECTED PRN PRN Reason: Keep Vein Open Last Admin: 01/25/18 20:20 Dose: 10 ml Assessment/Plan Comment:: Meclizine will be given when necessary, and I will also advised physical and occupational therapy for inflammatory maneuvers. I believe that depression also has a role in this presentation, will continue with [place],and hope that we' ll able to discharge her within the next 24-48 hours, to continue therapy at home. I Have discontinued IV fluids, and resumed all of her home medications with exception of the beta josé and gabapentin that could account for dizziness
[2018-01-26] MEDS ORDERED: ACETAMINOPHEN 1300 MG PO SCH (09:00)
[2018-01-26] MEDS: DICYCLOMINE 10 MG PO SCH ×3 (09:38→20:38)
[2018-01-26] MEDS: CHOLECALCIFEROL CHEW SCH (09:38)
[2018-01-26] MEDS: [UNRECOGNIZED DRUG - OTHER] CHEW SCH (09:38)
[2018-01-26] MEDS: CHOLECALCIFEROL 1000 UNIT PO SCH (09:40)
[2018-01-26] MEDS: Citalopram 10 MG Tab *PTOM PO SCH (09:40)
[2018-01-26] MEDS: Losartan 50 MG Tab *PTOM PO SCH (09:41)
[2018-01-26] MEDS: PROBIOTIC PO SCH (09:41)
[2018-01-26] MEDS: LUTEIN 20 MG PO SCH (09:42)
[2018-01-26] MEDS: Clopidogrel 75 MG Tab *PTOM PO SCH (09:43)
--- NOTE | 2018-01-26 11:18 | CT ---
INDICATION: Dizzy since noon, left-sided headache top of head, no trauma history, history of previous strokes, last one [address] HEAD WITHOUT CONTRAST: Serial contiguous 2.5 and 5 mm sections were obtained through the brain without contrast 01/25/2018 and compared with 2016. Total exam DLP = 845.81 mGy-cm. Mastoid air cells and paranasal sinuses appear to be well-aerated. No definite cranial abnormality was seen. No shift of midline structures or ventricular abnormalities were identified. Calcifications are noted in the internal carotid arteries, as previously. Lacunar infarct is again noted at the internal capsule on the right and basal ganglia on the left. No bleeding site or hematoma was noted. No significant interval change is identified. IMPRESSION: 1. Stable CT brain with no significant interval change, compared with 2016. 2. Lacunar infarcts are again noted in the right internal capsule and left basal ganglia. 3. Internal carotid artery calcifications are again noted. Report was called to Dr. Torres at 1843 hours on 01/25/2018. [facility]
[2018-01-26] MEDS ORDERED: Non-Formulary Medication 1 Each (Melatonin [Melatonin] 5 MG) PO SCH (21:00)
[2018-01-26] MEDS ORDERED: MIRTAZAPINE 15 MG PO SCH (21:00)
[2018-01-26] MEDS ORDERED: Simvastatin 20 MG Tab *PTOM PO SCH (21:00)
[2018-01-27] MEDS: Levothyroxine 88 MCG Tab**OWN MED PO SCH (05:59)
[2018-01-27] MEDS ORDERED: Non-Formulary Medication 1 Each (Levothyroxine [Synthroid] 88 MCG) PO SCH (06:00)
[2018-01-27] MEDS: PROBIOTIC PO SCH (08:38)
[2018-01-27] MEDS: DICYCLOMINE 10 MG PO SCH (08:38)
[2018-01-27] MEDS: Citalopram 10 MG Tab *PTOM PO SCH (08:38)
[2018-01-27] MEDS: Clopidogrel 75 MG Tab *PTOM PO SCH (08:38)
[2018-01-27] MEDS: Losartan 50 MG Tab *PTOM PO SCH (08:38)
[2018-01-27] MEDS: ACETAMINOPHEN 650 MG PO SCH (08:40)
[2018-01-27] MEDS: Gabapentin 300 MG Cap**OWN MED PO SCH (08:40)
[2018-01-27] MEDS: CHOLECALCIFEROL 1000 UNIT PO SCH (08:41)
[2018-01-27] MEDS: LUTEIN 20 MG PO SCH (08:41)
[2018-01-27] MEDS: [UNRECOGNIZED DRUG - OTHER] CHEW SCH (08:42)
[2018-01-27] MEDS: CHOLECALCIFEROL CHEW SCH (08:42)
[2018-01-27 08:45] VITALS: BP 147/77
--- NOTE | 2018-01-27 09:09 | PCM.PN ---
- General Info Date of Service: 01/27/18 Admission Dx/Problem (Free Text): Admission Diagnosis/Problem Admission Diagnosis/Problem Dizziness and giddiness Subjective Update: Patient has improved this morning. I dizziness has improved she states it has head feels full. She slept well him a physical therapy saw her and did not feel that she had vestibular symptoms. - Review of Systems Cardiovascular: Reports: No Symptoms Gastrointestinal: Reports: Diarrhea Genitourinary: Reports: No Symptoms Musculoskeletal: Reports: No Symptoms Skin: Reports: No Symptoms Neurological: Reports: Headache. Denies: Confusion, Dizziness, Difficulty Walking - Patient Data Vitals - Most Recent: Last Vital Signs Temp 97.7 F 01/27/18 08:40 Pulse 72 01/27/18 08:40 Resp 16 01/27/18 08:40 BP 147/77 H 01/27/18 08:40 Pulse Ox 97 01/27/18 08:40 Weight - Most Recent: 73.754 kg Med Orders - Current: Current Medications Acetaminophen (Tylenol Arthritis Pain) 1,300 mg PO BID [facility] [place] Last Admin: 01/27/18 08:40 Dose: 1,300 mg Citalopram Hydrobromide (Celexa) 10 mg PO DAILY [facility] [place] Last Admin: 01/27/18 08:38 Dose: 10 mg Clopidogrel Bisulfate (Plavix) 75 mg PO DAILY [facility] [place] Last Admin: 01/27/18 08:38 Dose: 75 mg Dicyclomine HCl (Bentyl) 10 mg PO TID [facility] Last Admin: 01/27/18 08:38 Dose: 10 mg Furosemide (Lasix) 20 mg PO DAILY PRN PRN Reason: edema Gabapentin (Neurontin) 600 mg PO BID [facility] Last Admin: 01/27/18 08:40 Dose: 600 mg Guaifenesin/Codeine Phosphate (Robitussin Ac) 5 ml PO BID PRN PRN Reason: Cough Last Admin: 01/26/18 21:01 Dose: 5 ml Ketorolac Tromethamine (Toradol) 15 mg IVPUSH Q8H PRN PRN Reason: Pain Stop: 01/30/18 20:08 Lactobacillus Rhamnosus (Culturelle) 1 cap PO DAILY [facility] [place] Last Admin: 01/27/18 08:38 Dose: 1 cap Levothyroxine Sodium (Synthroid) 88 mcg PO 0600 [facility] [place] Last Admin: 01/27/18 05:59 Dose: 88 mcg Losartan Potassium (Cozaar) 25 mg PO DAILY [facility] Last Admin: 01/27/18 08:38 Dose: 25 mg Melatonin (Melatonin) 5 mg PO BEDTIME [facility] Last Admin: 01/26/18 20:38 Dose: 5 mg Mirtazapine (Remeron) 15 mg PO BEDTIME [facility] [place] Last Admin: 01/26/18 20:39 Dose: 15 mg Calcium Phosphate Trib/Vit [id number] * Ptom 2 tab CHEW DAILY [facility] Last Admin: 01/27/18 08:42 Dose: 2 tab Cholecalciferol ( Vitamin D3) 1,000 Units Gummie *Ptom 2,000 units PO DAILY [facility] Last Admin: 01/27/18 08:41 Dose: 2,000 units Lutein 20 Mg Cap * (Ptom) 20 mg PO DAILY [facility] Last Admin: 01/27/18 08:41 Dose: 20 mg Simvastatin (Zocor) 20 mg PO BEDTIME [facility] Last Admin: 01/26/18 20:38 Dose: 20 mg Sodium Chloride (Saline Flush) 10 ml FLUSH ASDIRECTED PRN PRN Reason: Keep Vein Open Last Admin: 01/25/18 20:20 Dose: 10 ml Discontinued Medications Sodium Chloride (Normal Saline) 1,000 mls @ 125 mls/hr IV ASDIRECTED [facility] Last Admin: 01/26/18 06:08 Dose: 125 mls/hr Ketorolac Tromethamine (Toradol) 15 mg IVPUSH Q8H PRN PRN Reason: Pain Stop: 01/30/18 20:08 Last Admin: 01/25/18 20:20 Dose: 15 mg Meclizine HCl (Antivert) 50 mg PO ONETIME STA Stop: 01/25/18 18:41 Last Admin: 01/25/18 18:47 Dose: 50 mg - Exam General: Alert, Oriented HEENT: Pupils Equal, Scleral Icterus Lungs: Clear to Auscultation Cardiovascular: Regular Rate GI/Abdominal Exam: Normal Bowel Sounds Skin: Warm, Dry, Intact Neurological: No New Focal Deficit Psy/Mental Status: Alert, Normal Affect, Normal Mood, Depressed - Problem List & Annotations (1) BPPV (benign paroxysmal positional vertigo) SNOMED Code(s): 788578079 Code(s): H81.10 - BENIGN PAROXYSMAL VERTIGO, UNSPECIFIED EAR Status: Acute Current Visit: Yes Qualifiers: Laterality: unspecified laterality Qualified Code(s): H81.10 - Benign paroxysmal vertigo, unspecified ear (2) MDD (major depressive disorder) SNOMED Code(s): 714055774 Code(s): F32.9 - MAJOR DEPRESSIVE DISORDER, SINGLE EPISODE, UNSPECIFIED Status: Acute Current Visit: Yes Qualifiers: Active/Remission status: currently active Psychotic features: without psychotic features (3) General weakness SNOMED Code(s): 75539885 Code(s): R53.1 - WEAKNESS Status: Acute Current Visit: No (4) Syncopal episodes SNOMED Code(s): 110722678 Code(s): R55 - SYNCOPE AND COLLAPSE Status: Chronic Current Visit: No Qualifiers: Syncope type: unspecified Qualified Code(s): R55 - Syncope and collapse (5) HTN, Benign essential hypertension SNOMED Code(s): 7426679 Code(s): I10 - ESSENTIAL (PRIMARY) HYPERTENSION Status: Chronic Current Visit: No (6) Hypothyroidism SNOMED Code(s): 45812412 Code(s): E03.9 - HYPOTHYROIDISM, UNSPECIFIED Status: Acute Current Visit : Yes Qualifiers: Hypothyroidism type: unspecified Qualified Code(s): E03.9 - Hypothyroidism , unspecified - Problem List Review Problem List Initiated/Reviewed/Updated: Yes - My Orders Last 24 Hours: My Active Orders 01/26/18 08:45 OT Evaluation and Treatment [CONS] Routine PT Evaluation and Treatment [CONS] Routine 01/26/18 08:46 Codeine/guaiFENesin [Robitussin AC] 5 ml PO BID PRN Furosemide [Lasix] 20 mg PO DAILY PRN 01/26/18 09:00 Calcium Phosphate Trib/Vit D3 [Calcium + Vitamin D3 Gummies] 2 tab CHEW DAILY Cholecalciferol (Vitamin D3) [Vitamin D3] 2,000 units PO DAILY Citalopram [Celexa] 10 mg PO DAILY Clopidogrel [Plavix] 75 mg PO DAILY Dicyclomine [Bentyl] 10 mg PO TID Lactobacillus Rhamnosus GG [Culturelle] 1 cap PO DAILY Losartan [Cozaar] 25 mg PO DAILY Lutein [Lutein] 20 mg PO DAILY 01/26/18 21:00 Simvastatin [Zocor] 20 mg PO BEDTIME 02/28/18 09:07 Brain wo Cont [MR] Routine - Assessment Assessment:: I will discharge the patient home today. The only medicine of stop his beta josé. She is on several medications that could certainly contribute to dizziness gonion that was present was the dyclonine. I would like them to address this with Dr. Sam upon discharge. I've recommended an MRI of the brain before discharge today. - Plan Plan:: Meclizine will be given when necessary, and I will also advised physical and occupational therapy for inflammatory maneuvers. I believe that depression also has a role in this presentation, will continue with [place],and hope that we' ll able to discharge her within the next 24-48 hours, to continue therapy at home. I Have discontinued IV fluids, and resumed all of her home medications with exception of the beta josé and gabapentin that could account for dizziness
== END 2018-01-27 13:20 | disposition home or self-care (01) ==
LOC: FB.ED 17:39 → FB.MS 19:47
PROVIDERS: ADMIT Family Medicine; ATTEND Family Medicine
DX: H81.10 Benign paroxysmal vertigo, unspecified ear (principal); F32.9 Major depressive disorder, single episode, unspecified; R53.1 Weakness; R55 Syncope and collapse; I10 Essential (primary) hypertension; E03.9 Hypothyroidism, unspecified; J45.909 Unspecified asthma, uncomplicated; K21.9 Gastro-esophageal reflux disease without esophagitis; E78.00 Pure hypercholesterolemia, unspecified; Z90.49 Acquired absence of other specified parts of digestive tract; Z98.890 Other specified postprocedural states; Z88.1 Allergy status to other antibiotic agents; Z79.899 Other long term (current) drug therapy; Z87.891 Personal history of nicotine dependence
CPT/HCPCS: 36415; 70450; 70551; 80048; 81001; 82550; 83605; 84484; 85025; 85610; 93005; 96361; 96374; 97161-GP; 97165-GO; 97530-GO; 97535-GO; 99285; A9270-GY; G0378; J1885; J7040; J7050